=== PATIENT | female | born 1955 | race Caucasian/White ===

== ENCOUNTER → 2018-05-02 11:41 | Outpatient (CLI) | payer MEDICARE, BC, SELFPAY ==
[2018-05-02 11:55] LABS: Eosinophils # 0.1 K/mm3 (0.0-0.4); Eosinophils % 2.4 % (0.1-12.0); Hematocrit 39.7 % (37.0-47.0); Hemoglobin 13.1 g/dL (12.2-16.2); Lymphocytes # 1.1 K/mm3 (0.7-4.5); Lymphocytes % 25.5 % (10-50); Mean Corpuscular Hemoglobin 30.6 pg (27.0-31.2); Mean Corpuscular Volume 92.9 fl (81-99); Mean Platelet Volume 8.4 fl (7.4-10.4); Monocytes # 0.2 K/mm3 (0.1-1.0); Monocytes % 5.6 % (1.7-9.3); Neutrophils # 2.7 K/mm3 (1.8-7.8); Neutrophils % 65.5 % (37.0-80.0); Platelet Count 224 K/mm3 (142-424); Red Blood Count 4.28 M/mm3 (4.20-5.40); Red Cell Distribution Width 13.3 % (11.5-17.5); White Blood Count 4.2 K/mm3 (4.8-10.8)
[2018-05-02 12:38] LABS: Alanine Aminotransferase 28 U/L (12-78); Albumin Level 3.8 gm/dL (3.4-5.0); Albumin/Globulin Ratio 1.2 (1.1-1.8); Alkaline Phosphatase 67 U/L (46-116); Aspartate Amino Transferase 18 U/L (15-37); Bilirubin,Total 1.8 mg/dL (0.2-1.0); Blood Urea Nitrogen 21 mg/dL (7-18); CKMB Relative Index 0.7 U/L (0-4.0); Calcium 8.8 mg/dL (8.5-10.1); Carbon Dioxide 29 mmol/L (21.0-32.0); Chloride 101 mmol/L (98-107); Creatine Kinase 91 U/L (26-192); Creatine Kinase MB 0.6 ng/ml (0.0-3.6); Creatinine,Serum 1.14 mg/dL (0.55-1.02); Estimated Glomerular Filt Rate 48 ml/min (>60); GFR (African American) 58 ML/MIN (>60); Globulin 3.3 gm/dl (1.3-3.2); Glucose 161 mg/dL (74-106); Sodium 140 mmol/L (136-145); Total Protein,Serum 7.1 gm/dL (6.4-8.2); Troponin I < 0.02 ng/ml (0.00-0.06)
== END ==
PROVIDERS: Visit Provider Internal Medicine Adolescent Medicine
DX: R07.9 Chest pain, unspecified (principal); M79.10 Myalgia, unspecified site
CPT/HCPCS: 36415; 80053; 82550; 82553; 83735; 84484; 85025

== ENCOUNTER → 2018-06-16 08:49 | Outpatient (CLI) | payer MEDICARE, BC, SELFPAY ==
--- NOTE | 2018-06-16 08:52 | XR_ITS ---
XR DEXA axial skeleton HISTORY: ITS.REASON: POST MENOAPAUSAL SCREENING ORDERING PHYSICIAN: Evin Burnett MD PATIENT AGE: 63 years COMPARISON: None FINDINGS: The BMD measured at the Right femoral neck is 0.911 g/cm squared with a T score of -0.9. This is considered Normal according to the World Health Organization criteria. Fracture risk is Low. L1 L4 density has a T score 1.2. IMPRESSION: Normal bone density with low fracture risk. Recommend follow-up exam June 2020
--- NOTE | 2018-06-16 08:53 | MM_ITS ---
MM Dig screening mamm BI w/CAD CAD Screening COMPARISON: Digital mammograms with CAD 11/26/2016 and 07/28/2015 INDICATION: There is no personal or family history of breast cancer TECHNIQUE: Standard CC and MLO images were obtained. R2 CAD reviewed. FINDINGS: The breasts are composed primarily of fat with minimal scattered fibroglandular densities in each breast. There is no suspicious lesion in either breast and there are no suspicious microcalcifications. IMPRESSION: Fibrofatty parenchyma with no suspicious lesion seen BI-RADS Category: 1 Negative RECOMMENDED FOLLOW-UP: 1YR - 1 YEAR FOLLOW-UP (A letter has been sent to the patient regarding results of the study.)
== END ==
PROVIDERS: PCP Internal Medicine Adolescent Medicine; Visit Provider Internal Medicine Adolescent Medicine
DX: Z12.31 Encounter for screening mammogram for malignant neoplasm of breast (principal); Z13.820 Encounter for screening for osteoporosis; Z78.0 Asymptomatic menopausal state
CPT/HCPCS: 77067; 77080

== ENCOUNTER → 2018-11-02 09:34 | Outpatient (CLI) | payer MEDICARE, BC, SELFPAY ==
--- NOTE | 2018-11-02 09:38 | XR_ITS ---
XR foot wt bearing LT 3V HISTORY: ITS.REASON: pain ORDERING PHYSICIAN: Marissa Hernández DPM PATIENT AGE: 63 years COMPARISON: None FINDINGS: There are mild osteoarthritic changes at the talonavicular and calcaneocuboid joint. There is mild abduction of the proximal phalanx of the third toe. Normal alignment. No fracture or dislocation. There is a small calcaneal spur. IMPRESSION: Mild osteoarthritic change of the midfoot
--- NOTE | 2018-11-02 09:38 | XR_ITS ---
XR foot wt bearing RT 3V HISTORY: ITS.REASON: pain ORDERING PHYSICIAN: Marissa Hernández DPM PATIENT AGE: 63 years COMPARISON: None FINDINGS: There are mild osteoarthritic changes of the talonavicular joint. There is borderline pes planus. Small calcaneal spur is noted. Minimal osteoarthritic changes are present at the first metatarsal tarsal joint. There are also minimal osteoarthritic changes of the calcaneocuboid joint. 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
== END ==
PROVIDERS: PCP Internal Medicine Adolescent Medicine; Visit Provider Podiatrist
DX: M79.672 Pain in left foot (principal); M79.671 Pain in right foot
CPT/HCPCS: 73630

== ENCOUNTER → 2019-01-04 08:49 | Outpatient (CLI) | payer MEDICARE, BC, SELFPAY ==
--- NOTE | 2019-01-04 08:58 | NM_ITS ---
PROCEDURE: NM BONE 3 PHASE 26.5 millicuries of technetium MDP was injected at the right hand area. CLINICAL INDICATION: left foot pain COMPARISON: FTL3 FOOT-LT-3 VIEWS from 10/05/2015 FINDINGS: Radionuclide angiogram shows possible subtle mild increased blood flow to the left ankle and foot area. Immediate static images show subtle diffuse activity on at the left foot within the soft tissues. This is very mild without focal abnormality. Delayed static images shows some areas of discrete moderate activity in the tarsal areas bilaterally as well as at the 1st MTP joints of both feet, and the left foot shows mild activity at the 3rd MTP joint and the PIP joint of the 2nd digit. IMPRESSION: Above described findings suggest possible mild reactive increased blood flow to left foot perhaps a mild cellulitis however there is no discrete intense focal activity to suggest acute infection or acute fracture. Areas of activity scribe above in both ankles and feet are likely degenerative in nature. Dictated by: John Rivera 01/04/2019 13:04 Electronically signed by John Rivera in [place] 01/04/2019 13:04
[2019-01-04 09:12] LABS: Basophils # 0.1 K/mm3 (0-0.2); Basophils % 1.3 % (0.1-2.0); Eosinophils # 0.1 K/mm3 (0.0-0.4); Eosinophils % 2.9 % (0.1-12.0); Hematocrit 38.4 % (37.0-47.0); Lymphocytes % 25.8 % (10-50); Mean Corpuscular HGB Conc 31.3 g/dL (31.8-35.4); Mean Corpuscular Hemoglobin 29.2 pg (27.0-31.2); Mean Platelet Volume 8.1 fl (7.4-10.4); Monocytes # 0.3 K/mm3 (0.1-1.0); Monocytes % 6.8 % (1.7-9.3); Neutrophils # 2.3 K/mm3 (1.8-7.8); Neutrophils % 63.2 % (37.0-80.0); Platelet Count 211 K/mm3 (142-424); Red Blood Count 4.13 M/mm3 (4.20-5.40); Red Cell Distribution Width 13.5 % (11.5-17.5); White Blood Count 3.7 K/mm3 (4.8-10.8)
--- NOTE | 2019-01-04 10:38 | HMH.ITSHM ---
Current Home Medications as stated by this patient Felicia Seals or insurance claims representative. []ROSUVASTATIN LEVOTHYROXINE FLUCONAZOLE ESTROGENS CARVEDILOL
[2019-01-04 11:12] LABS: Alanine Aminotransferase 24 U/L (12-78); Albumin Level 3.9 gm/dL (3.4-5.0); Albumin/Globulin Ratio 1.4 (1.1-1.8); Alkaline Phosphatase 66 U/L (46-116); Anion Gap 12.1 mEq/L (5-15); Aspartate Amino Transferase 13 U/L (15-37); Bilirubin,Total 1.4 mg/dL (0.2-1.0); Blood Urea Nitrogen 11 mg/dL (7-18); Calcium 8.7 mg/dL (8.5-10.1); Carbon Dioxide 29 mmol/L (21.0-32.0); Chloride 105 mmol/L (98-107); Creatinine,Serum 0.98 mg/dL (0.55-1.02); Estimated Glomerular Filt Rate 57 ml/min (>60); GFR (African American) 69 ML/MIN (>60); Globulin 2.7 gm/dl (1.3-3.2); Glucose 102 mg/dL (74-106); Potassium 4.1 mmoL/L (3.5-5.1); Sodium 142 mmol/L (136-145); Thyroid Stimulating Hormone 4.46 uIU/ml (0.358-3.740); Total Protein,Serum 6.6 gm/dL (6.4-8.2)
[2019-01-05 09:11] LABS: Folate 17.8 ng/mL (>3.0); Vitamin B12 493 pg/mL (232-1245); Vitamin D 25 Hydroxy 24.2 ng/mL (30.0-100.0)
== END ==
PROVIDERS: PCP Internal Medicine Adolescent Medicine; Visit Provider Podiatrist
DX: G90.522 Complex regional pain syndrome I of left lower limb; E03.9 Hypothyroidism, unspecified
CPT/HCPCS: 36415; 78315; 80053; 82607; 82652; 82746; 84443; 85025; A9503

== ENCOUNTER → 2019-06-01 07:02 | Outpatient (CLI) | payer MEDICARE, BC, SELFPAY ==
--- NOTE | 2019-06-01 | CA_ITS ---
APPROVED REPORT Exam: Pharmacologic Technologist: Kelley Garner Ht: 5 ft 6 in Wt: 229 lbs BSA: 2.12 m2 HR: 57 bpm BP: 163/73 mmHg Indications: Chest pain Medical History Medications: Levothyroxine,,,,, Carvedilol,,,,, EstroGEN,,,,, RoSUVASTATIN,,,,, Fluconazole,,,,, Stress Test Details Test: LEXISCAN HR Resting HR: 59 bpm Max Heart Rate (APMHR): 154 bpm Max HR Achieved: 84 bpm Target HR (85% APMHR): 130 bpm % of APMHR: 54 Recovery HR: 66 bpm BP Resting BP: 163.0/73.0 mmHg Max BP: 163.0/73.0 mmHg Recovery BP: 142.0/65.0 mmHg ECG Clinical Exercise duration: 04:02 min Highest Stage Achieved: Stress ECG Conclusion Resting ECG: Sinus bradycardia, first degree AV block, PAC Symptoms: Shortness of air, mild malaise. No chest pain Arrhythmias/Ectopy: Occasional PAC ST-T Changes: No significant changes. Conclusion: Unremarkable Lexiscan stress. Myoview images reported separately. Test Summary REST . . . . . . . Resting REST 03:19 . . 59 . 163/ 73 . . Stage 1 . . . . . . . Myoview Injected Stage 1 01:00 . . 83 . . . . Stage 2 01:00 . . 78 . . . . Stage 3 01:00 . . 78 . 143/ 70 . . Stage 4 01:00 . . 74 . 139/ 66 . . Stage 4 01:02 . . 74 . 139/ 66 . Stop exercise at 04:02 RECOVERY 01:00 . . 78 . . . . RECOVERY 02:00 . . 67 . . . . RECOVERY 03:00 . . 66 . 142/ 64 . . RECOVERY 04:00 . . 68 . 142/ 65 . . RECOVERY 04:19 . . 68 . 142/ 65 . . Electronically signed by : Tramaine Antunez, 06/01/2019 19:51:18
--- NOTE | 2019-06-01 07:06 | NM_ITS ---
APPROVED REPORT Exam: Nuclear Stress Test Indication: Chest pain, SOB, Abnormal EKG, HTN, High cholesterol, Family history Patient Location: Outpatient Stress Tech: Kelley Garner [place] Tech:Janette Du, ARRT, RT (R)(N) Ht: 5 ft 6 in Wt: 229 lbs Bra Size: 38D HR: 57 bpm BP: 163/73 mmHg BSA: 2.12 m2 BMI: 36.9 History: Chest pain, SOB, Abnormal EKG, HTN, High cholesterol, Family history Procedure: Patient received a 0.4 mg of intravenous Lexiscan, resting heart rate 57 bpm, resting blood pressure 163/73 mmHg, with Lexiscan maximum heart rate achived was 83 bpm which is Less than 85 % of the maximum predicted heart rate and blood pressure was 143/70 mmHg. With Lexiscan, patient denied any complaint of chest pain. Electrocardiogram Resting electrocardiogram showed sinus rhythm right ventricular conduction delay, with Lexiscan there is less than 1.[address] segment depression noted from the baseline EKG. The EKG portion of the Lexiscan Myoview is nondiagnostic. Cardiac Stress and Resting SPECT Images: Cardiac Stress and Resting SPECT images were obtained using technetium 99m Myoview 32.1 mCi stress and 10.97 mCi at rest. Gated SPECT with analysis of segmental wall motion and calculation of the ejection fraction also done. Cardiac stress and resting SPECT images show a mild fixed defect anteroapically with normal contracted gated SPECT is likely secondary to soft tissue attenuation, no reversible ischemia seen, computer derived ejection fraction is over 65% with no regional wall motion abnormality, right ventricle is mildly enlarged with normal contractility. Conclusion: 1. The EKG portion of the Lexiscan Myoview is nondiagnostic. 2. No scintigraphic evidence of reversible ischemia seen, a mild fixed defect anteroapical is likely secondary to soft tissue attenuation, computer derived ejection fraction is over 65% with no regional wall motion abnormality, right ventricle is mildly enlarged with normal contractility. 3. Likely normal Lexiscan Myoview study. Electronically signed by : Tramaine Antunez, 06/01/2019 19:54:14
--- NOTE | 2019-06-01 08:53 | HMH.ITSHM ---
Current Home Medications as stated by this patient Felicia Seals or medical collections representative. []ROSUVASTATIN LEVOTHYROXINE FLUCONAZOLE ESTROGENS CARVEDILOL
== END ==
PROVIDERS: PCP Internal Medicine Adolescent Medicine; Visit Provider Internal Medicine Adolescent Medicine
DX: R07.9 Chest pain, unspecified (principal)
CPT/HCPCS: 78452; 93017; A9502; J2785

== ENCOUNTER → 2019-11-10 10:48 | Outpatient (CLI) | payer MEDICARE, BC, SELFPAY | PROVIDERS: Visit Provider Internal Medicine Adolescent Medicine | DX: Z20.828 Contact with and (suspected) exposure to other viral communicable diseases (principal) | CPT/HCPCS: U0003 ==

== ENCOUNTER 2020-06-23 13:09 | Emergency (ER) | payer MEDICARE, BC, SELFPAY ==
[2020-06-23 13:10] VITALS: PULSE 80; RESP 20; TEMP 36.2; O2SAT 99; BMI 37.9
--- NOTE | 2020-06-23 14:06 | HMH.EDUTC ---
[facility] Disposition Clinical Impression: Laceration of finger Qualifiers: Encounter type: initial encounter Finger: index finger Damage to nail status: without damage Foreign body presence: without foreign body Laterality: left Qualified Code(s): S61.211A - Laceration without foreign body of left index finger without damage to nail, initial encounter Disposition: Home, Self-Care Condition on Discharge: Good Instructions: DI for Laceration Repair -- Finger Additional Instructions: Return for suture removal in 7-10 days Keep clean and dry Watch for signs of infection Referrals: Evin Burnett MD [Primary Care Provider] - Time of Disposition: 14:10 Medical Decision Making - [place] Inquiry Pt receiving controlled substance: No Vital Signs: 06/23/20 13:10 Temperature 97.1 F L Temperature Source Oral Pulse Rate [Right Brachial] 80 Respiratory Rate 20 02 Sat by Pulse Oximetry 99 Oxygen Delivery Method Room Air Orders (Tests/Meds): ED MEDICATIONS Discontinued Medications Generic Name Dose Route Start Last Admin Trade Name Freq PRN Reason Stop Dose Admin Tetanus/Reduced Diphtheria/Acell Pertussis 0.5 ml 06/23/20 13:27 06/23/20 13:30 Tet/Diphth/Pert-Adult 0.5ml Syringe IM 06/23/20 13:28 0.5 ml .ONCE ONE Administration [facility] HPI - General Stated complaint: left index finger cut Time Seen by Provider: 06/23/20 14:07 Mode of Arrival: Ambulatory Source of Information: Patient Limitations: No Limitations Description of Symptoms (Recalled from Triage Doc. 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 Sensation and movement intact, but she could not get it to quit bleeding. Onset (ago): hour(s) (1/2) Location: left, upper extremity Relieving factors: none Exacerbating factors: none Treatments prior to arrival: none - Related Data Home Medications Medication Instructions Recorded Confirmed levothyroxine 125 mcg tablet 125 mcg PO DAILY 01/27/18 06/23/20 rosuvastatin 20 mg tablet 20 mg PO DAILY 01/27/18 06/23/20 carvedilol 6.25 mg tablet 6.25 mg PO BID #180 tab 11/02/18 06/23/20 Allergies Allergy/AdvReac Type Severity Reaction Status Date / Time No Known Allergies Allergy Verified 12/28/18 14:57 - Worker's Comp Is this a Worker's Comp case?: No [facility] History - Hepatitis A Screen Drug use history?: No High risk sexual behaviors?: No History of sexually transmitted infection?: No Currently employed?: No Childcare worker?: No Do you have indoor plumbing?: Yes Do you have electricity?: Yes Attestation statement:: This patient has been screened for Hepatitis A risk factors. I have reviewed the patient's past medical history: Yes Medical History: Reports:: Hyperlipidemia Denies:: Anxiety, Depression, Hypertension, Migraine, MRSA Other Medical History: Reports: Hypothyroidism Other Surgeries: Yes: Cholecystectomy, Hysterectomy-Total Amputation: No Fractures: No Comment: 2 on wrist left. toe left 4th. partial left knee replacement - Social History Smoking Status: Never smoker Alcohol Intake: never Alcohol Intake Frequency:: holidays/special occasions only Substance Use Type: denies use Occupational Status: other - Psychiatric History Pschychiatric History:: Denies:: Anxiety, Depression Family Hx:: Cancer, Heart Attack, Diabetes, Coronary Artery Disease, Thyroid Disorder, Stroke, Hypertension, Hyperlipidemia ROS Obtained: Yes All systems reviewed & no additional complaints - Integumentary/Breasts Skin/Breast: Reports as pe
[2020-06-23 14:08] VITALS: BP 00/00; PULSE 80; RESP 20; TEMP 36.2; O2SAT 99
== END 2020-06-23 14:12 | disposition home or self-care (01) ==
PROVIDERS: Emergency Provider Physician Assistant; PCP Internal Medicine Adolescent Medicine
DX: S61.211A Laceration without foreign body of left index finger without damage to nail, initial encounter (principal); W26.0XXA Contact with knife, initial encounter; Y92.019 Unspecified place in single-family (private) house as the place of occurrence of the external cause; E78.5 Hyperlipidemia, unspecified; E03.9 Hypothyroidism, unspecified; Z23 Encounter for immunization
CPT/HCPCS: 12001; G0463; 90471; 90715; 99202

== ENCOUNTER → 2020-10-27 11:47 | Outpatient (CLI) | payer MEDICARE, BC, SELFPAY ==
[2020-10-27 12:27] LABS: Basophils # 0.1 K/mm3 (0-0.2); Basophils % 1.3 % (0.1-2.0); Eosinophils # 0.1 K/mm3 (0.0-0.4); Eosinophils % 2.7 % (0.1-12.0); Hematocrit 40.2 % (37.0-47.0); Hemoglobin 13.5 g/dL (12.2-16.2); Lymphocytes # 1.2 K/mm3 (0.7-4.5); Lymphocytes % 27.2 % (10-50); Mean Corpuscular HGB Conc 33.5 g/dL (31.8-35.4); Mean Corpuscular Volume 89.7 fl (81-99); Mean Platelet Volume 8.2 fl (7.4-10.4); Monocytes # 0.3 K/mm3 (0.1-1.0); Neutrophils # 2.8 K/mm3 (1.8-7.8); Neutrophils % 61.8 % (37.0-80.0); Platelet Count 238 K/mm3 (142-424); Red Blood Count 4.48 M/mm3 (4.20-5.40); Red Cell Distribution Width 13.7 % (11.5-17.5); White Blood Count 4.5 K/mm3 (4.8-10.8)
[2020-10-27 13:50] LABS: Free Thyroxine Index 2.1 ug/dL (5.93-13.13); T4 (Thyroxine) 7.6 ug/dl (5.53-11.0); Triiodothryronine (T3) Uptake 28 % (23.5-40.5)
[2020-10-27 14:04] LABS: Thyroid Stimulating Hormone 8.28 uIU/mL (0.465-4.68)
[2020-10-27 17:01] LABS: Chloride 106 mmol/L (98-107); Sodium 139 mmol/L (136-145)
[2020-10-27 17:02] LABS: Potassium 3.8 mmoL/L (3.5-5.1)
[2020-10-27 17:04] LABS: Alanine Aminotransferase 35 U/L (12-78); Alkaline Phosphatase 83 U/L (38-126); Anion Gap 13.8 mEq/L (5-15); Aspartate Amino Transferase 40 U/L (14-36); Bilirubin,Total 2.3 mg/dl (0.2-1.3); Blood Urea Nitrogen 11 mg/dl (7-17); Carbon Dioxide 23 mmol/L (22.0-30.0); Estimated Glomerular Filt Rate 50 ml/min (>60); GFR (African American) 60 ML/MIN (>60)
[2020-10-27 17:05] LABS: Albumin Level 4.6 g/dl (3.5-5.0); Albumin/Globulin Ratio 1.9 (1.1-1.8); Calcium 8.6 mg/dl (8.4-10.2); Globulin 2.4 g/dL (1.3-3.2); Glucose 86 mg/dl (74-100)
[2020-10-28 16:28] LABS: Tissue Transglutaminase IgA Ab <2 U/mL (0-3); Tissue Transglutaminase IgG Ab 7 U/mL (0-5)
== END ==
PROVIDERS: Visit Provider Internal Medicine Adolescent Medicine
DX: E03.9 Hypothyroidism, unspecified (principal); R19.7 Diarrhea, unspecified
CPT/HCPCS: 36415; 80053; 83516; 84436; 84443; 84479; 85025

== ENCOUNTER → 2020-10-31 08:58 | Outpatient (CLI) | payer MEDICARE, BC, SELFPAY ==
[2020-10-31 09:02] LABS: Adenovirus F 40/41, stool Not Detected (NotDetected); Astrovirus Not Detected (NotDetected); Campylobacter Not Detected (NotDetected); Clostridium Difficile A/B, PCR Not Detected (NotDetected); Cryptosporidium Not Detected (NotDetected); Cyclospora Cayetanesis Not Detected (NotDetected); Entamoeba histolytica Not Detected (NotDetected); Enteroaggregative E coli Not Detected (NotDetected); Enteropathogenic E coli Not Detected (NotDetected); Enterotoxigenic E coli Not Detected (NotDetected); Giardia lamblia Not Detected (NotDetected); Norovirus Not Detected (NotDetected); Plesimonas Shigalloides, PCR Not Detected (NotDetected); Rotavirus A Not Detected (NotDetected); Salmonella, PCR Not Detected (NotDetected); Sapovirus Not Detected (NotDetected); Shiga-like toxin E coli Not Detected (NotDetected); Shigella Enterovasive E coli Not Detected (NotDetected); Vibrio Cholerae Not Detected (NotDetected); Vibrio, PCR Not Detected (NotDetected); Yersinia Entercolitica, PCR Not Detected (NotDetected)
[2020-11-02 17:31] LABS: Calprotectin, Fecal 34 ug/g (0-120)
[2020-11-03 18:03] LABS: Lactoferrin, Fecal, Quant. 2.65 ug/mL(g) (0.00-7.24)
== END ==
PROVIDERS: Visit Provider Internal Medicine Adolescent Medicine
DX: R19.7 Diarrhea, unspecified (principal)
CPT/HCPCS: 83630; 83993; 87506

== ENCOUNTER → 2021-05-08 10:15 | Outpatient (CLI) | payer MEDICARE, BC, SELFPAY ==
--- NOTE | 2021-05-08 10:25 | XR_ITS ---
FINAL REPORT CLINICAL HISTORY: ACUTE PAIN OF RT KNEE no injury FINDINGS: Four views of the right knee reveal no evidence of fracture or dislocation. The bony alignment is normal. There are mild degenerative changes. There is no evidence of joint effusion. No localized soft tissue abnormality is identified. IMPRESSION: Mild degenerative changes. Reviewed, Interpreted and Dictated by Zak Samson III, MD Transcribed by Nahtalia Duarte Authenticated by Zak Samson III, MD on 05/08/2021 01:13:[address] [facility]
--- NOTE | 2021-05-08 13:29 | CA_ITS ---
FINAL REPORT TECHNIQUE: Color Doppler, duplex Doppler and compression sonography of the right lower extremity venous system was performed. CLINICAL HISTORY: .Rt knee injury, Rt calf pain below the knee FINDINGS: There is no evidence of deep venous thrombosis from the level of the groin to the calf. The veins are patent and compressible. IMPRESSION: No evidence of deep venous thrombosis right lower extremity. Reviewed, Interpreted and Dictated by Zak Samson III, MD Transcribed by Nathalia Duarte Authenticated by Zak Samson III, MD on 05/08/2021 02:55:10 PM [facility]
== END ==
PROVIDERS: PCP Internal Medicine Adolescent Medicine; Visit Provider Internal Medicine Adolescent Medicine
DX: M25.561 Pain in right knee (principal); M79.661 Pain in right lower leg
CPT/HCPCS: 73562; 93971

== ENCOUNTER → 2021-05-29 14:19 | Outpatient (CLI) | payer MEDICARE, BC, SELFPAY ==
[2021-05-29 15:52] LABS: Blood Urea Nitrogen 22 mg/dl (7-17); Estimated Glomerular Filt Rate 49 ml/min (>60); GFR (African American) 60 ML/MIN (>60)
== END ==
PROVIDERS: PCP Internal Medicine Adolescent Medicine; Visit Provider Internal Medicine Adolescent Medicine
DX: M25.561 Pain in right knee (principal)
CPT/HCPCS: 36415; 82565; 84520

== ENCOUNTER → 2021-05-30 08:26 | Outpatient (CLI) | payer MEDICARE, BC, SELFPAY ==
--- NOTE | 2021-05-30 08:27 | MR_ITS ---
FINAL REPORT CLINICAL HISTORY: ACUTE PAIN IN RIGHT KNEE, RIGHT LATERAL KNEE PAIN AND SWELLING X4 WEEKS 22ML PROHANCE INJECTED PRIOR XRAY 05-08-21 FINDINGS: Multiplanar MR imaging of the right knee was obtained with and without contrast. There is a complex tear involving the anterior horn of the lateral meniscus. There is a linear tear of the posterior horn of the medial meniscus. The anterior and posterior cruciate ligaments are intact. The medial and lateral collateral ligaments are intact. The medial and lateral retinacula are intact. There is a moderate joint effusion. Moderate popliteal cyst is seen measuring 6.8 cm in craniocaudal dimension. On the postinfusion images, there is extensive and rather intense enhancement of the synovium throughout the knee including within the popliteal cyst consistent with acute synovitis. IMPRESSION: Medial and lateral meniscal tears as above. Findings consistent with synovitis. Reviewed, Interpreted and Dictated by Duke Anderson MD Transcribed by Paola Ha Authenticated by Duke Anderson MD on 05/30/2021 12:42:33 PM [facility]
== END ==
PROVIDERS: PCP Internal Medicine Adolescent Medicine; Visit Provider Internal Medicine Adolescent Medicine
DX: M25.561 Pain in right knee (principal)
CPT/HCPCS: 73723; A9576

== ENCOUNTER → 2021-06-05 10:36 | Outpatient (CLI) | payer MEDICARE, BC, SELFPAY ==
[2021-06-06 09:13] LABS: HSV 1 IgG, Type Spec <0.91 index (0.00-0.90); HSV 2 IgG, Type Spec <0.91 index (0.00-0.90)
== END ==
PROVIDERS: Visit Provider Nurse Practitioner Obstetrics & Gynecology
DX: N76.2 Acute vulvitis (principal)
CPT/HCPCS: 36415; 86695; 86790

== ENCOUNTER → 2022-05-14 07:39 | Outpatient (CLI) | payer MEDICARE, BC, SELFPAY ==
--- NOTE | 2022-05-14 07:43 | MM_ITS ---
PROCEDURE INFORMATION: Exam: MG Bilateral Screening 3D Mammography Exam date and time: 05/14/2022 7:51 AM Age: 67 years old Clinical indication: Screening. No family history of breast cancer. TECHNIQUE: Imaging protocol: Bilateral Screening tomosynthesis and 2D mammography including computer-aided detection (CAD) when performed. COMPARISON: 1. MG SCBI MM Dig screening mamm BI w/CAD 06/16/2018 9:05 AM 2. MG DMSB DIG MAMM-SCREEN ERIKA W/CAD 11/26/2016 9:12 AM 3. MG DMDXUAVR DIG MAMM-DX UNI ADD VIEWS-RT 08/03/2015 10:56 AM 4. MG DMSB DIG MAMM-SCREEN EIRKA 07/28/2015 8:18 AM MG DMSB DIG MAMM-SCREEN ERIKA 07/28/2015 8:18 AM FINDINGS: MAMMOGRAPHY: Breast composition: The breasts are almost entirely fatty. Mass: No suspicious mass. Architectural distortion: None. Calcifications: No suspicious calcifications. Asymmetric density: None. Skin thickening: None. Axillary adenopathy: None. IMPRESSION: No mammographic evidence of malignancy. Annual screening is recommended unless otherwise clinically indicated. ASSESSMENT: BI-RADS Category 1: Negative
--- NOTE | 2022-05-14 07:43 | US_ITS ---
FINAL REPORT CLINICAL HISTORY: ABN LIVER FUNCTION STUDY FINDINGS: RIGHT UPPER QUADRANT ULTRASOUND Sonographic images of the right upper quadrant were obtained. The pancreas is partially obscured. There is fatty infiltration of the liver. The gallbladder is absent. The common duct is normal. Limited images of the right kidney are normal. IMPRESSION: Fatty liver. Reviewed, Interpreted and Dictated by Duke Anderson MD Transcribed by Paola Ha Authenticated and [facility]
== END ==
PROVIDERS: PCP Internal Medicine Adolescent Medicine; Visit Provider Nurse Practitioner Family
DX: Z12.31 Encounter for screening mammogram for malignant neoplasm of breast (principal); R79.89 Other specified abnormal findings of blood chemistry; R94.5 Abnormal results of liver function studies
CPT/HCPCS: 76705; 77063; 77067

== ENCOUNTER 2023-08-25 10:25 | Outpatient (CLI) | payer MEDICARE, BC, SELFPAY ==
--- NOTE | 2023-08-25 10:30 | XR_ITS ---
FINAL REPORT CLINICAL HISTORY: LT FOOT PAIN, lateral foot pain COMPARISON: None FINDINGS: LEFT FOOT Three views of the left foot demonstrate no acute fracture or dislocation. The visualized joint spaces are normally aligned. A small plantar spur is noted. The soft tissues are unremarkable. IMPRESSION: No acute bony abnormality. Reviewed, Interpreted and Dictated by Duke Anderson MD Transcribed by Mariza Quezada Authenticated and [facility]
== END 2023-08-25 23:59 | disposition home or self-care (01) ==
LOC: RAD 10:26
PROVIDERS: PCP Nurse Practitioner Family; Visit Provider Nurse Practitioner Family
DX: M79.672 Pain in left foot (principal)
CPT/HCPCS: 73630

== ENCOUNTER 2023-12-09 06:58 | Outpatient (CLI) | payer MEDICARE, BC, SELFPAY ==
--- NOTE | 2023-12-09 | CA_ITS ---
APPROVED REPORT Exam: Pharmacologic Technologist: Marisela Palomo, Ht: 5 ft 6 in Wt: 230 lbs BSA: 2.12 m2 HR: 67 bpm BP: 172/76 mmHg Rhythm: sr Medical History Medications: levothyroxine, rosuvastatin, carvedilol, biotin, vagifum, benzonatate Allergies: No known drug allergies Stress Test Details Test: LEXISCAN HR Resting HR: 72 bpm Max Heart Rate (APMHR): 150 bpm Max HR Achieved: 90 bpm Target HR (85% APMHR): 128 bpm % of APMHR: 60 Recovery HR: 73 bpm BP Resting BP: 172/76 mmHg Max BP: 183/82 mmHg Recovery BP: 155.0/81.0 mmHg ECG Resting ECG: Normal sinus rhythm Stress ECG: No ST changes Arrhythmia: None Clinical Exercise duration: 04:01 min Highest Stage Achieved: Stress ECG Conclusion Pt had light headedness and a headache No significant ST changes Conclusion: EKG portion unremarkable due to lexiscan infusion Myoview images reported separately. Test Summary REST 01:31 . . 72 . 172/ 76 . . Stage 1 . . . . . . . Myoview Injected Stage 1 01:00 . . 87 . . . . Stage 2 01:00 . . 84 . 170/ 90 . . Stage 3 01:00 . . 79 . 183/ 82 . . Stage 4 01:00 . . 78 . 165/ 78 . . Stage 4 01:01 . . 78 . 165/ 78 . Stop exercise at 04:01 RECOVERY 01:00 . . 79 . . . . RECOVERY 02:00 . . 74 . 162/ 70 . . RECOVERY 02:59 . . 73 . 155/ 81 . . Electronically signed by : Katherine Oliver MD 12/09/2023 14:39:01
--- NOTE | 2023-12-09 07:03 | NM_ITS ---
APPROVED REPORT Exam: Nuclear Stress Test Indication: Chest pain, SOB, Fatigue, HTN, High cholesterol, Family history Patient Location: Outpatient Stress Tech: Marisela Palomo [place] Tech:Janette Du, ARRT, RT (R)(N) Ht: 5 ft 6 in Wt: 230 lbs Bra Size: 40D HR: 72 bpm BP: 172/76 mmHg BSA: 2.12 m2 TID: 0.95 BMI: 37.1 History: Chest pain, SOB, Fatigue, HTN, High cholesterol, Family history Procedure: Patient received 0.4 mg of intravenous Lexiscan, resting heart rate 72 bpm, resting blood pressure 172/76 mmHg, with Lexiscan maximum heart rate achieved was 90 bpm which is % of the maximum predicted heart rate and blood pressure was 183/82 mmHg. With Lexiscan, patient denied any complaint of chest pain. Cardiac Stress and Resting SPECT Images: Cardiac Stress and Resting SPECT images were obtained using technetium 99m Myoview 31.3 mCi stress and 10.94 mCi at rest. The patient is unable to lie on her abdomen. Therefore, prone stress imaging could not be performed. This may affect the diagnostic interpretation of the study findings. Resting and stress imaging in supine positions demonstrate no evidence of fixed or reversible perfusion defects. Gated imaging demonstrates normal global and regional LV systolic function. LVEF is calculated at 65%. Conclusion: No evidence of fixed or reversible perfusion defects. Gated imaging demonstrates normal global and regional LV systolic function. LVEF is calculated at 65%. Electronically signed by : Katherine Oliver MD 12/09/2023 14:41:02
[2023-12-09] MEDS: ISOTOPE MYOVIEW (PER STUDY) 1 DOSE IV (09:16)
[2023-12-09] MEDS: REGADENOSON 0.4MG/5ML SYRINGE 0.4 MG IV (09:16)
[2023-12-09] MEDS: SODIUM CHLORIDE 0.9% 10ML SYR (RAD ONLY) 10 ML IV ×2 (09:16)
== END 2023-12-09 23:59 | disposition home or self-care (01) ==
LOC: RAD 06:58
PROVIDERS: PCP Nurse Practitioner Family; Visit Provider Nurse Practitioner Family
DX: R07.9 Chest pain, unspecified (principal)
CPT/HCPCS: 78452; 93017; 93018; A9502; J2785

== ENCOUNTER 2023-12-23 14:14 | Outpatient (CLI) | payer MEDICARE, BC, SELFPAY ==
--- NOTE | 2023-12-23 | CA_ITS ---
APPROVED REPORT EXAM: Comprehensive 2D, Doppler, and color-flow Echocardiogram Scale Technician: Junie Spears RT(R) Ht: 5 ft 6 in Wt: 231lbs BSA: 2.13 BP: 132/86 mmHg Indications: CP, HTN, palpitations, JEFFERSON, hyperlipidemia, family history of HD 2D Dimensions Left Atrium 4.35 cm F: 2.7 - 3.8 LVEF (Lee's) 63.60 % F: 54 - 74 LVOT 1.97 cm (M/F) 1.5-2.5 LV Volume 89.00 mL F: 46 - 106 LV Volume Index 41.8 mL/m2 F: 29 - 61 LA Volume 38.20 mL LA Volume Index 17.93 mL/m2 (M/F) 16-34 EF AP4 68.10 % EF AP2 63.1 % EF BP 63.6 % GL Strain -20.6 % M-Mode Dimensions RVDd 2.26 cm (0.9-2.6) LVDd 5.42 cm (3.5-5.7) Ao Diam 3.09 cm (2.0-3.7) LVDs 4.00 cm (3.5-5.7) IVSd 1.13 cm (0.6-1.1) PWd 0.98 cm (0.6-1.1) EF (Teich) 50.90% FS 26.20% EDV (Teich) 142.50 mL ESV (Teich) 70.00 mL LV Diastology E Decel Time 100 (160-240 msec) E/A Ratio 0.8 MED E' 8.4 (>= 7 cm/sec) E'/MED E' Ratio 10.07 (<= 14) LAT E' 6.9 (>= 10 cm/sec) E/LAT E' Ratio 12.26 (<= 14) Aortic Valve AI PHT 578.00 ms Mitral Valve MV E Max Sam. 85.0 (40-130 cm/s) MV A Velocity 112.0 (40-130 cm/s) E/A Ratio 0.75 MV Decel. Time 100 (160-240 ms) Left Ventricle The left ventricle is normal size. The left ventricular systolic function is normal. The left ventricular ejection fraction is within the normal range. There is increased LV wall thickness. There is normal LV segmental wall motion. The left ventricular diastolic function is normal. LVEF is 55%. Right Ventricle The right ventricle is normal size. The right ventricular systolic function is normal. Atria The left atrium size is normal. The right atrium size is normal. There is no Doppler evidence of interatrial shunt. Aortic Valve The aortic valve is mildly thickened. There is no aortic valvular stenosis. Mild aortic regurgitation. Mitral Valve The mitral valve is mildly thickened. No evidence of mitral valve stenosis. Trace mitral regurgitation. Tricuspid Valve The tricuspid valve leaflets are thin and pliable. Mild tricuspid regurgitation. RVSP is normal. Pulmonic Valve The pulmonary valve is normal in structure. Trace pulmonic regurgitation. Great Vessels The aortic root is normal in size. The ascending aorta is normal in size. IVC is normal in size and collapses >50% with inspiration. Pericardium There is no pericardial effusion. Other Information Study Quality: Fair Conclusion Normal biventricular systolic function. Mild AI, mild TR. Electronically signed by : Katherine Oliver MD 12/27/2023 00:00:16
== END 2023-12-23 23:59 | disposition home or self-care (01) ==
LOC: RT 14:16
PROVIDERS: PCP Nurse Practitioner Family; Visit Provider Nurse Practitioner Family
DX: I35.1 Nonrheumatic aortic (valve) insufficiency (principal); I07.1 Rheumatic tricuspid insufficiency; R07.9 Chest pain, unspecified; I10 Essential (primary) hypertension
CPT/HCPCS: 93306

== ENCOUNTER 2023-12-31 21:15 | Emergency (ER) | payer MEDICARE, BC, SELFPAY ==
[2023-12-31 21:17] VITALS: BP 168/86; PULSE 82; RESP 20; TEMP 36.7; O2SAT 99; BMI 37.3
--- NOTE | 2023-12-31 21:31 | XR_ITS ---
PROCEDURE INFORMATION: Exam: XR Left Foot Exam date and time: 12/31/2023 9:35 PM Age: 68 years old Clinical indication: Pain; Foot; Left; Additional info: Fall, lateral mal/talus/base of 5th tenderness TECHNIQUE: Imaging protocol: Radiologic exam of the left foot. Views: 3 or more views. Total images: 3 COMPARISON: CR XR FOOT LT MIN 3V 08/25/2023 10:32 AM FINDINGS: Bones/joints: Osteopenia. Acute fracture tip the lateral malleolus. No additional fracture. No joint dislocation. Mild degenerative changes of the tarsal articulations. Small enthesophyte dorsal talonavicular joint. Prominent plantar calcaneal enthesophyte. No concerning bone lesions. Mild degenerative change 1st MTP joint. Tibiotalar joint effusion Soft tissues: Soft tissue swelling hindfoot and ankle. IMPRESSION: 1. Negative left foot. 2. Acute fracture tip of the lateral malleolus. 3. Tibiotalar joint effusion 4. Soft tissue swelling.
--- NOTE | 2023-12-31 21:31 | XR_ITS ---
PROCEDURE INFORMATION: Exam: XR Left Ankle Exam date and time: 12/31/2023 9:35 PM Age: 68 years old Clinical indication: Pain; Ankle; Left; Additional info: Fall, lateral mal/talus/base of 5th tenderness TECHNIQUE: Imaging protocol: Radiologic exam of the left ankle. Views: 3 or more views. Total images: 3 COMPARISON: CR XR FOOT LT MIN 3V 12/31/2023 9:35 PM FINDINGS: Bones/joints: Mild osteopenia. Fracture tip of the lateral malleolus. No joint dislocation. Ankle mortise is maintained. No significant degenerative arthropathy. Tibiotalar joint effusion. Prominent plantar calcaneal enthesophyte. Degenerative changes at the tarsal articulations. Spur corticated ossicle dorsal talonavicular joint. Soft tissues: Soft tissue swelling and edema. IMPRESSION: 1. Acute fracture tip of the lateral malleolus. 2. Tibiotalar joint effusion 3. Soft tissue swelling and edema.
[2023-12-31] MEDS: IBUPROFEN 600 MG TABLET PO (21:47)
[2023-12-31] MEDS: ACETAMINOPHEN 500MG TAB 1000 MG PO (21:47)
[2023-12-31 21:49] VITALS: BMI 37.3
--- NOTE | 2023-12-31 21:53 | ED_ITS ---
Discharge Plan Disposition Patient Disposition: Home, Self-Care Prescriptions Prescriptions: New oxycodone 5 mg tablet 5 mg PO Q8H PRN (Reason: pain) Qty: 12 0RF No Action levothyroxine 150 mcg tablet 150 mcg PO biotin 1,000 mcg tablet,chewable 1,000 mcg PO DAILY carvedilol 25 mg tablet 25 mg PO BID Rx Instructions: must administer with a meal/food estradiol [Vagifem] 10 mcg tablet 10 mcg vaginal .every other day Qty: 30 10RF triamcinolone acetonide 0.1 % ointment 1 applic topical DAILY Qty: 80 6RF rosuvastatin [Crestor] 20 mg tablet 20 mg PO DAILY fluconazole 150 mg tablet 150 mg PO WEEKLY Qty: 4 11RF Referrals Follow up/Referrals: Roderick Coleman DO [Staff Physician] - See instructions Evin Burnett MD [Primary Care Provider] - See instructions Activity Restrictions/Add. Instructions Additional Instructions/Restrictions: Please wear boot, okay to weight-bear as tolerated. Follow-up with your PCP and Dr. Coleman with orthopedics. Please take Tylenol, ibuprofen and oxycodone as needed for pain. Clinical Impressions Clinical Impression: Acute foot pain Fracture of distal end of left tibia Qualifiers: Encounter type: initial encounter Fracture type: closed Fracture morphology: unspecified fracture morphology Qualified Code(s): S82.302A - Unspecified fracture of lower end of left tibia, initial encounter for closed fracture Print Language Print Language: Urdu Discharge ED Provider: Alvin Talamantes General Adult HPI <Girma Hunt MD - Last Filed: 12/31/23 22:53> General Chief complaint: Extremity Injury, Lower Stated complaint: AO [id number] left foot pain Time Seen by Provider: 12/31/23 21:23 History of Present Illness HPI narrative: Please note that above description of symptoms, in this electronic medical record under categorization of recalled from ER triage doctor by RN are reflective of an initial nursing assessment, however, is not reflective of my full history and physical exam that was personally taken and clarified. Consequentially, this preceding description of symptoms, which may include the patient's categorized chief complaint in the EMR, do not reflect my personal clinical impression, and the ultimate description of history of present illness and patient stated complaints should be deferred to this section of the note. Unless stated otherwise or congruent with this section of the note, additional signs, symptoms, or incongruence should be interpreted as inaccurate with my clinical impression. Related Data Home Medications ?Medication ?Instructions ?Recorded ?Confirmed rosuvastatin 20 mg tablet (Crestor) 20 mg PO DAILY Cholesterol 01/27/18 05/19/23 biotin 1,000 mcg chewable tablet 1,000 mcg PO DAILY 05/29/21 05/19/23 levothyroxine 150 mcg tablet 150 mcg PO 05/29/21 05/19/23 carvedilol 25 mg tablet 25 mg PO BID 06/18/21 05/19/23 Previous Rx's ?Medication ?Instructions ?Recorded estradiol 10 mcg vaginal tablet 10 mcg vaginal .every other day 05/19/23 (Vagifem) #30 tabs triamcinolone acetonide 0.1 % 1 applic topical DAILY #80 grams 05/19/23 topical ointment fluconazole 150 mg tablet 150 mg PO WEEKLY #4 tabs 06/20/23 oxycodone 5 mg tablet 5 mg PO Q8H PRN pain #12 tabs 01/01/24 Allergies Allergy/AdvReac Type Severity Reaction Status Date / Time No Known Allergies Allergy Verified 05/19/23 10:36 PFS <Girma Hunt MD - Last Filed: 12/31/23 22:53> COUNT INCLUDES THE [facility] Disclaimer: The information contained in this section may have been updated after the patient was seen, as this information can be updated by other users. Medical History (Updated 01/01/24 @ 00:20 by Alvin Talamantes MD) High blood pressure High cholesterol Yeast infection Vaginal atrophy Surgical History (Updated 05/19/23 @ 10:38 by AJ Martin) H/O vaginal hysterectomy Family History Other No significant family history Social History Smoking Status: Never smoker alcohol intake: never substance use type: denies use current occupational status: other Travel in the last 8 weeks: None <Girma Hunt MD - Last Filed: 12/31/23 22:53> ROS Obtained: Yes All systems reviewed & no additional complaints except as documented Physical Exam <Girma Hunt MD - Last Filed: 12/31/23 22:53> General General appearance: alert Head Head exam: atraumatic and normocephalic Eye Eye exam: Present normal appearance, PERRL and EOMI Neck Neck exam: Present normal inspection, full ROM and trachea midline Respiratory Respiratory exam: Absent respiratory distress, wheezes, stridor, accessory muscle use or prolonged expiratory phase Cardiovascular Cardiovascular exam: Present other (Pulses equal symmetric in upper and lower extremities) Abdominal Exam Abdominal exam: Present soft; Absent distention, tenderness or pulsatile mass Extremities Exam Extremities exam: Present other (Per MDM) Neurological Exam Neurological exam: Present alert, oriented X3 and CN II-XII intact; Absent motor sensory deficit Skin Skin exam: Present warm and dry; Absent diaphoresis or erythema Medical Decision Making <Girma Hunt MD - Last Filed: 12/31/23 22:53> Medical Records Medical records reviewed: Yes I reviewed the patient's medical records. Screening: Per USPSTF and CDC recommendations, given the prevalence of disease in our region, it is our hospital?s policy to screen for HIV and viral Hepatitis for all patients aged 18 and over and those with ongoing risk factors. [place] Inquiry Pt receiving controlled substance: No [place] was queried for this patient: No Vital Signs: 12/31/23 21:17 01/01/24 00:25 Temperature 98.1 F 98.1 F Temperature Source Oral Oral Pulse Rate 66 Pulse Rate [Right Radial] 82 Respiratory Rate 20 16 Blood Pressure 166/79 H Blood Pressure [Right Arm] 168/86 H Blood Pressure Mean [Right Arm] 113 Blood Pressure Position Supine 02 Sat by Pulse Oximetry 99 Oxygen Delivery Method Room Air Room Air Orders (Tests/Meds): ED MEDICATIONS Discontinued Medications Generic Name Dose Route Start Last Admin Trade Name Freq PRN Reason Stop Dose Admin Acetaminophen 1,000 mg 12/31/23 21:33 12/31/23 21:47 Acetaminophen 500mg Tab PO 12/31/23 21:34 1,000 mg ONCE ONE Administration Ibuprofen 600 mg 12/31/23 21:33 12/31/23 21:47 Ibuprofen 600 Mg Tablet PO 12/31/23 21:34 600 mg ONCE ONE Administration Oxycodone HCl 5 mg 12/31/23 23:41 12/31/23 23:43 Oxycodone 5mg Immediate Release Tablet PO 12/31/23 23:42 5 mg ONCE ONE Administration ORDERS Category Date Time Status CT foot LT wo con Stat Cat Scan 12/31/23 23:23 Completed Ankle XR - Left minimum 3 Views [XR ankle LT min 3V] Exams 12/31/23 21:31 Completed Stat Foot XR left minimum 3 views [XR foot LT min 3V] Stat Exams 12/31/23 21:31 Completed Medical Decision Narrative: 68-year-old female no relevant medical history presenting with left foot and ankle injury. She was playing football with her grandkids just prior to arrival. Tripped, felt a pop in the top of her left foot, fell. Was able to ambulate on it, but with significant pain. Went to sleep in the armchair, had ice on it, woke up and had even more pain and swelling in it, came for further evaluation. Has not taken any meds for it. History obtained with patient. On arrival, patient very well-appearing, but she does have swelling and tenderness about left lateral malleolus, talus, base of fifth metatarsal. Neurovascularly intact, range of motion of digits intact, ankle range of motion intact, but significantly painful. Differential occludes fracture, sprain, strain, neurovascular injury, among others. Patient given Tylenol Motrin orally. Imaging of ankle and foot were ordered, on independent interpretation demonstrated what appears to be an avulsion fracture of the top of the talus. Prior to radiology read and disposition, care handed off to oncoming physician. Range Rider disclaimer Much of this encounter note is an electronic airplane gas tank liner assembler spoken language to printed text. Electronic airplane gas tank liner assembler of the spoken language may permit errors. Although I have reviewed the note, some errors may still exist. <Alvin Talamantes MD - Last Filed: 01/01/24 00:40> Vital Signs: 12/31/23 21:17 01/01/24 00:25 Temperature 98.1 F 98.1 F Temperature Source Oral Oral Pulse Rate 66 Pulse Rate [Right Radial] 82 Respiratory Rate 20 16 Blood Pressure 166/79 H Blood Pressure [Right Arm] 168/86 H Blood Pressure Mean [Right Arm] 113 Blood Pressure Position Supine 02 Sat by Pulse Oximetry 99 Oxygen Delivery Method Room Air Room Air Orders (Tests/Meds): ED MEDICATIONS Discontinued Medications Generic Name Dose Route Start Last Admin Trade Name Freq PRN Reason Stop Dose Admin Acetaminophen 1,000 mg 12/31/23 21:33 12/31/23 21:47 Acetaminophen 500mg Tab PO 12/31/23 21:34 1,000 mg ONCE ONE Administration Ibuprofen 600 mg 12/31/23 21:33 12/31/23 21:47 Ibuprofen 600 Mg Tablet PO 12/31/23 21:34 600 mg ONCE ONE Administration Oxycodone HCl 5 mg 12/31/23 23:41 12/31/23 23:43 Oxycodone 5mg Immediate Release Tablet PO 12/31/23 23:42 5 mg ONCE ONE Administration ORDERS Category Date Time Status CT foot LT wo con Stat Cat Scan 12/31/23 23:23 Completed Ankle XR - Left minimum 3 Views [XR ankle LT min 3V] Exams 12/31/23 21:31 Completed Stat Foot XR left minimum 3 views [XR foot LT min 3V] Stat Exams 12/31/23 21:31 Completed Medical Decision Narrative: 68-year-old female no relevant medical history presenting with left foot and a nkle injury. She was playing football with her grandkids just prior to arrival. Tripped, felt a pop in the top of her left foot, fell. Was able to ambulate on it, but with significant pain. Went to sleep in the armchair, had ice on it, woke up and had even more pain and swelling in it, came for further evaluation. Has not taken any meds for it. History obtained with patient. On arrival, pat ient very well-appearing, but she does have swelling and tenderness about left lateral malleolus, talus, base of fifth metatarsal. Neurovascularly intact, range of motion of digits intact, ankle range of motion intact, but significantly painful. Differential occludes fracture, sprain, strain, neurovascular injury, among others. Patient given Tylenol Motrin orally. Imaging of ankle and foot were ordered, on independent interpretation demonstrated what appears to be an avulsion fracture of the tip of the distal tibia prior to radiology read and disposition, care handed off to oncoming physician. Range Rider disclaimer Much of this encounter note is an electronic airplane gas tank liner assembler spoken language to printed text. Electronic airplane gas tank liner assembler of the spoken language may permit errors. Although I have reviewed the note, some errors may still exist. [place]: I assumed care of the patient at the time of handoff from the prior provider. On reassessment patient reports continued pain in her foot. She was given oxycodone with some improvement in pain. Radiographs were interpreted and show no acute fracture of the foot, does show a avulsion fracture of the distal tibia. Samson A. On reassessment patient was still unable to bear weight and having pain in the foot. Given concern for occult fracture of the foot, CT of the foot was obtained. This was significant for swelling but no acute fracture or dislocation of the foot. The tip fracture of the lateral malleolus is well- corticated and may be old. These findings were communicated with patient. She was placed in a walking boot and given crutches and encouraged to ambulate as tolerated and follow-up with orthopedic surgery. Return precautions given. She was discharged prescription for oxycodone for severe pain in the setting of fracture. Critical Care <Girma Hunt MD - Last Filed: 12/31/23 22:53> Critical Care Time Critical Care Time: No
--- NOTE | 2023-12-31 22:52 | PC.NURSE ---
Updated patient and spouse on current wait time for xray per radiology of 90-100 minutes
--- NOTE | 2023-12-31 23:23 | CT_ITS ---
PROCEDURE INFORMATION: Exam: CT Left Lower Extremity, Foot Exam date and time: 12/31/2023 11:38 PM Age: 68 years old Clinical indication: Pain; Foot; Left; Additional info: Left foot pain, negative x ray TECHNIQUE: Imaging protocol: CT of the left lower extremity without contrast was performed. Exam focused on the foot. Total images: 1294 Radiation optimization: All CT scans at this facility use at least one of these dose optimization techniques: automated exposure control; mA and/or kV adjustment per patient size (includes targeted exams where dose is matched to clinical indication); or iterative reconstruction. COMPARISON: CR XR FOOT LT MIN 3V 12/31/2023 9:35 PM FINDINGS: Bones/joints: Osteopenia. No acute fracture or joint dislocation. Fracture of the tip the lateral malleolus shows corticated margins compatible with remote injury. Ankle mortise is maintained. Small tibiotalar joint effusion. Calcaneal enthesophytes at the insertion of the Achilles tendon and plantar fascia. Degenerative changes throughout the tarsal articulations and tarsometatarsal joint spaces. Enthesophyte dorsal surface talonavicular joint. No concerning bone lesions. Soft tissues: Mild soft tissue swelling hindfoot. IMPRESSION: 1. No acute osseous abnormality of the foot or ankle. 2. Fracture at the tip the lateral malleolus shows corticated margins compatible with remote injury. 3. Tibiotalar joint effusion. 4. Osteopenia and degenerative changes.
[2023-12-31] MEDS: OXYCODONE 5MG IMMEDIATE RELEASE TABLET 5 MG PO (23:43)
[2024-01-01 00:25] VITALS: BP 166/79; PULSE 66; RESP 16; TEMP 36.7; O2SAT 99
== END 2024-01-01 00:33 | disposition home or self-care (01) ==
PROVIDERS: Emergency Provider Emergency Medicine; PCP Internal Medicine Adolescent Medicine
DX: S82.302A Unspecified fracture of lower end of left tibia, initial encounter for closed fracture (principal); M79.672 Pain in left foot; W01.10XA Fall on same level from slipping, tripping and stumbling with subsequent striking against unspecified object, initial encounter
CPT/HCPCS: 73610; 73630; 73700; 99284

== ENCOUNTER 2024-01-08 10:18 | Outpatient (CLI) | payer MEDICARE, BC, SELFPAY ==
--- NOTE | 2024-01-08 10:23 | XR_ITS ---
FINAL REPORT CLINICAL HISTORY: left ankle fx COMPARISON: 12/31/2023 FINDINGS: LEFT ANKLE Three views demonstrate no acute fracture or dislocation. The previously noted fracture of the tip of the lateral malleolus is not well seen on the current exam. The visualized joint spaces are normally aligned. The ankle mortise is intact. There is a moderate plantar spur. Soft tissue edema seen about the ankle. IMPRESSION: Soft tissue edema. Previously noted fracture not well seen on this exam. Reviewed, Interpreted and Dictated by Duke Anderson MD Transcribed by Mariza Quezada Authenticated and [facility]
== END 2024-01-08 23:59 | disposition home or self-care (01) ==
LOC: RAD 10:21
PROVIDERS: PCP Nurse Practitioner Family; Visit Provider Physician Assistant
DX: S82.832A Other fracture of upper and lower end of left fibula, initial encounter for closed fracture (principal)
CPT/HCPCS: 73610

== ENCOUNTER 2024-01-22 13:47 | Outpatient (RCR) | payer MEDICARE, BC, SELFPAY | END 2024-01-22 23:59 | disposition home or self-care (01) | LOC: PT 13:47 | PROVIDERS: Visit Provider Physician Assistant | DX: M25.572 Pain in left ankle and joints of left foot (principal); S82.832A Other fracture of upper and lower end of left fibula, initial encounter for closed fracture | CPT/HCPCS: 97760 ==

== ENCOUNTER 2024-02-19 09:52 | Outpatient (CLI) | payer MEDICARE, BC, SELFPAY ==
--- NOTE | 2024-02-19 09:57 | XR_ITS ---
FINAL REPORT CLINICAL HISTORY: .ANKLE PAIN COMPARISON: 01/08/2024 FINDINGS: LEFT ANKLE: Three views of the left ankle were obtained. There is no acute fracture or dislocation. Mild degenerative changes are noted. The mortise are intact. A plantar calcaneal spur is identified. There is no soft tissue abnormality. IMPRESSION: Degenerative changes without acute bony abnormality. Reviewed, Interpreted and Dictated by Zak Samson III, MD Transcribed by Ailyn Sanchez Authenticated and [facility]
--- NOTE | 2024-02-19 09:57 | XR_ITS ---
FINAL REPORT CLINICAL HISTORY: RIGHT KNEE PAIN COMPARISON: 05/08/2021 FINDINGS: Three views of the right knee reveal no evidence of fracture or dislocation. The bony alignment is normal. There are mild degenerative changes. There is no evidence of joint effusion. No localized soft tissue abnormality is identified. IMPRESSION: Degenerative changes without acute abnormality identified. Reviewed, Interpreted and Dictated by Zak Samson III, MD Transcribed by Ailyn Sanchez Authenticated and [facility]
== END 2024-02-19 23:59 | disposition home or self-care (01) ==
LOC: RAD 09:55
PROVIDERS: PCP Internal Medicine Adolescent Medicine; Visit Provider Physician Assistant
DX: S82.832A Other fracture of upper and lower end of left fibula, initial encounter for closed fracture (principal); M25.561 Pain in right knee
CPT/HCPCS: 73562; 73610

== ENCOUNTER 2024-04-05 09:00 | Outpatient (RCR) | payer MEDICARE, BC, SELFPAY | END 2024-04-05 23:59 | disposition home or self-care (01) | LOC: PT 09:00 | PROVIDERS: Visit Provider Orthopaedic Surgery | DX: M25.561 Pain in right knee (principal); G89.29 Other chronic pain | CPT/HCPCS: 97014; 97035; 97110; 97163; 97530; G0283 ==

== ENCOUNTER 2024-08-19 08:55 | Outpatient (CLI) | payer MEDICARE, BC, SELFPAY ==
[2024-08-19 09:36] LABS: Basophils % 0.8 % (0.1-2.0); Eosinophils # 0.2 Kmm3 (0.0-0.4); Eosinophils % 3.3 % (0.1-12.0); Hematocrit 37.7 % (37.0-47.0); Hemoglobin 12.8 g/dL (12.2-16.2); Immature Granulocytes # 0.01 10^3uL; Immature Granulocytes % 0.2 %; Lymphocytes # 1.1 K/mm3 (0.7-4.5); Lymphocytes % 23.2 % (10-50); Mean Corpuscular Hemoglobin 30.6 pg (27.0-31.2); Mean Corpuscular Volume 90.2 fl (81-99); Mean Platelet Volume 9.7 fl (7.4-10.4); Monocytes # 0.5 K/mm3 (0.1-1.0); Monocytes % 10.6 % (1.7-9.3); Neutrophils % 61.9 % (37.0-80.0); Nucleated Red Blood Cells # 0 10^3/uL; Nucleated Red Blood Cells % 0 %; Platelet Count 230 K/mm3 (142-424); Red Blood Count 4.18 M/mm3 (4.20-5.40); Red Cell Distribution Width 12.2 % (11.5-17.5); Red Cell Distribution Width-SD 40.2 fL; White Blood Count 4.8 K/mm3 (4.8-10.8)
[2024-08-19 10:06] LABS: Alanine Aminotransferase 19 U/L (12-78); Albumin Level 4.1 g/dl (3.5-5.0); Albumin/Globulin Ratio 2.3 (1.1-1.8); Alkaline Phosphatase 69 U/L (38-126); Anion Gap 6.8 mEq/L (5-15); Aspartate Amino Transferase 21 U/L (14-36); Bilirubin,Total 1.4 mg/dl (0.2-1.3); Blood Urea Nitrogen 16 mg/dl (7-17); Calcium 8.7 mg/dl (8.4-10.2); Carbon Dioxide 26 mmol/L (22.0-30.0); Chloride 107 mmol/L (98-107); Cholesterol 160 mg/dl (140-200); Estimated Glomerular Filt Rate 62 ml/min (>60); GFR (African American) 75 ML/MIN (>60); Globulin 1.8 g/dL (1.3-3.2); Glucose 92 mg/dl (74-100); HDL Cholesterol 53 mg/dl (40-60); Potassium 3.8 mmoL/L (3.5-5.1); Sodium 136 mmol/L (136-145); Total Protein,Serum 5.9 g/dl (6.3-8.2); Triglycerides 111 mg/dl (30-150); VLDL Cholesterol 22 mg/dL (0-40)
[2024-08-19 10:22] LABS: Free Thyroxine Index 4.4 ug/dL (5.93-13.13); T4 (Thyroxine) 12.8 ug/dl (5.53-11.0); Triiodothryronine (T3) Uptake 34 % (23.5-40.5)
[2024-08-19 10:25] LABS: 25-OH Vitamin D, Total 60.7 ng/mL (30-100)
[2024-08-19 10:35] LABS: Thyroid Stimulating Hormone < 0.02 uIU/mL (0.465-4.68)
[2024-08-19 10:37] LABS: Thyroid Stimulating Hormone < 0.02 uIU/mL (0.465-4.68)
== END 2024-08-19 23:59 | disposition home or self-care (01) ==
LOC: LAB 08:56
PROVIDERS: PCP Internal Medicine Adolescent Medicine; Visit Provider Nurse Practitioner Obstetrics & Gynecology
DX: I10 Essential (primary) hypertension (principal); M81.0 Age-related osteoporosis without current pathological fracture; N95.2 Postmenopausal atrophic vaginitis; L90.0 Lichen sclerosus et atrophicus
CPT/HCPCS: 36415; 80053; 80061; 82306; 84436; 84443; 84479; 85025

== ENCOUNTER 2024-08-23 15:36 | Outpatient (CLI) | payer MEDICARE, BC, SELFPAY ==
--- NOTE | 2024-08-23 16:00 | MM_ITS ---
PROCEDURE INFORMATION: Exam: MG Bilateral Screening 3D Mammography Exam date and time: 08/23/2024 3:56 PM Age: 69 years old Clinical indication: Screening examination. TECHNIQUE: Imaging protocol: Bilateral Screening tomosynthesis and 2D mammography including computer-aided detection (CAD) when performed. COMPARISON: 1. MG MM DIG SCREENING MAMM BI W/CAD 05/14/2022 7:51 AM 2. MG SCBI MM Dig screening mamm BI w/CAD 06/16/2018 9:05 AM FINDINGS: MAMMOGRAPHY: Breast composition: There are scattered areas of fibroglandular density. Mass: None. Architectural distortion: None. Calcifications: No suspicious calcifications. Asymmetric density: None. Skin thickening: None. Axillary adenopathy: None. IMPRESSION: No mammographic evidence of malignancy. Annual screening is recommended unless otherwise clinically indicated. ASSESSMENT: BI-RADS 1, Negative.
== END 2024-08-23 23:59 | disposition home or self-care (01) ==
LOC: RAD 15:38
PROVIDERS: PCP Internal Medicine Adolescent Medicine; Visit Provider Nurse Practitioner Obstetrics & Gynecology
DX: Z12.31 Encounter for screening mammogram for malignant neoplasm of breast (principal); R92.323 Mammographic fibroglandular density, bilateral breasts
CPT/HCPCS: 77063; 77067

== ENCOUNTER 2025-02-03 15:00 | Outpatient (RCR) | payer MEDICARE, BC, SELFPAY | END 2025-02-03 23:59 | disposition home or self-care (01) | LOC: PT 15:00 | PROVIDERS: PCP Internal Medicine Adolescent Medicine; Visit Provider Orthopaedic Surgery | DX: M17.11 Unilateral primary osteoarthritis, right knee (principal); G89.29 Other chronic pain | CPT/HCPCS: 97110; 97163; 97530 ==

== ENCOUNTER 2025-03-02 15:00 | Outpatient (RCR) | payer MEDICARE, BC, SELFPAY | END 2025-03-02 23:59 | disposition home or self-care (01) | LOC: PT 15:00 | PROVIDERS: PCP Internal Medicine Adolescent Medicine; Visit Provider Orthopaedic Surgery | DX: M17.11 Unilateral primary osteoarthritis, right knee (principal) | CPT/HCPCS: 97014; 97110; 97140; G0283 ==

== ENCOUNTER 2025-03-07 13:30 | Outpatient (CLI) | payer MEDICARE, BC, SELFPAY ==
--- OUTSIDE RECORDS SUMMARY | 2025-01-11 13:20 | XMS_ITS | Encounter Summary ---
Author Organization Healthcare Address [address] [place] [address] Care Team Providers Care Pediatric Cns Name Role Phone Elodia Manrique LUZ MARINA Primary Care Provider [phone] Reason for Visit * Reason Comments Consult Encounter Details Date Type Department Care Team (Latest Contact Info) Description 01/11/2025 2:20 PM EDT Office Visit Medical Office Building [facility] [address], [address] [place] [address] Ben Carlos MD [address] [place] [address] Primary osteoarthritis of right knee (Primary Dx) Social History Tobacco Use Types Packs/Day Years Used Date Smoking Tobacco: Never Passive Smoke Exposure: Never Smokeless Tobacco: Never Tobacco Cessation:Counseling Given: No Alcohol Use Standard Drinks/Week Comments Not Currently 0 (1 standard drink = 0.6 oz pure alcohol) Alcoholic Drinks/day: Rarely consumes alcohol Comments No Sex and Gender Information Value Date Recorded Sex Assigned at Female 06/07/2021 11:48 PM EST Legal Sex Female 7:46 PM EDT Gender Identity Female 06/07/2021 11:48 PM EST Sexual Orientation Not on file documented as of this encounter Last Filed Vital Signs Vital Sign Reading Time Taken Comments Blood Pressure 146/72 01/11/2025 1:47 PM EDT Pulse 75 01/11/2025 1:47 PM EDT Temperature - - Respiratory Rate 18 01/11/2025 1:47 PM EDT Oxygen Saturation 98% 01/11/2025 1:47 PM EDT Inhaled Oxygen Concentration - - Weight 104 kg (229 lb 4.5 oz) 01/11/2025 1:47 PM EDT Height 167.6 cm (5' 6 ) 01/11/2025 1:47 PM EDT Body Mass Index 37.01 01/11/2025 1:47 PM EDT documented in this encounter Miscellaneous Notes * Progress Notes - Ben Burger MD - 01/11/2025 2:20 PM EDT This is a 69 y.o. female who presents to the clinic today for evaluation of right knee osteoarthritis. Patient has been managed nonoperatively with combination of corticosteroid injections and multimodal pain control, she continues to have right knee pain limits her activities of daily life. She describes the pain is anterior, medial, lateral, worsened with activity, partially relieved by rest She had previously undergone corticosteroid injections to the right knee, her last injection was 10/05/2024 Medical History: Past Medical History[1] Surgical History: Surgical History[2] Social History: Social History[3] Review of Systems: Denies any fevers, chills or night sweats Physical Examination: Vitals: 01/11/25 1347 BP: (!) 146/72 Pulse: 75 Resp: 18 SpO2: 98% Patient has range of motion of the right knee from 0-120 degrees, stable to varus and valgus stressat 0 and 30 degrees, tender to palpation about the anterior, medial, lateral joint line Imaging: Imaging of the right knee demonstrates subchondral sclerosis of the medial and lateral compartment,loss of joint space medially and laterally, sclerosis of the right patellofemoral joint Assessment: This is a 69 y.o. female with right knee osteoarthritis that is radiographically evident and has failed conservative treatments including consecutive corticosteroid injections. Due to the significantradiographic findings as well as the failure of conservative treatment, patient has a candidate forsurgical intervention for right total knee arthroplasty. Given with the patient has had improvement of her blood pressure with reported blood pressure readings of the 120s systolic at home and measurement of 146/72 here she would have appropriate blood pressure control for surgical intervention Plan: Surgical scheduling orders have been placed with the patient for a right total knee arthroplasty, patient expresses understanding of the risks and benefits of surgery and wishes to proceed Surgical date pending surgical availability and scheduling [1] Past Medical History: Diagnosis Date Fatty liver High cholesterol Hypertension 2010 Obesity 2014 Thyroid disorder [2] Past Surgical History: Procedure Laterality Date CHOLECYSTECTOMY 2003 FOOT SURGERY Left 2016 Foot Surgery [facility] HAND SURGERY Left 2002 Hand Surgery [facility] HYSTERECTOMY N/A 2004 Hysterectomy from [facility] JOINT REPLACEMENT Left 2014 Left unicompartmental knee KNEE SURGERY 2014 WRIST SURGERY Left 2002 [3] Social History Socioeconomic History Marital status: Tobacco Use Smoking status: Never Passive exposure: Never Smokeless tobacco: Never Vaping Use Vaping status: Never Used Substance and Sexual Activity Alcohol use: Not Currently Comment: Alcoholic Drinks/day: Rarely consumes alcohol Drug use: Never Sexual activity: Yes Partners: Male Comment: Hysterectomy Cosigned by Ben Carlos MD at 01/11/2025 2:30 PM EDT Associated attestation - Ben Carlos MD - 01/11/2025 2:30 PM EDT I saw and evaluated the patient with the resident/fellow. I discussed the case with the resident/fellow and agree with the findings and plan as documented. * Progress Notes - Mary Quevedo RN - 01/11/2025 2:20 PM EDT Patient was provided with [facility] Education Packet. Patient was educated using information provided in packet. Patient instructed to schedule PT appointment 3-5 days after surgery date and to schedule prior to having procedure. All questions answered. Contact information for Joint Replacement Nu rse given for patient to call should any questions arise before or after surgery. Pt then met with wax room supervisor to arrange surgery and Joint Replacement Class date. Reviewed patients allergies, medications, medical and surgical history, and pharmacy verified. Instructed patient to stop NSAIDS, ASA, and OTC vitamins & supplements 1 week prior to procedure. Instructed to ensure any hormone replacement, if taken, is stopped 1 month prior to surgery. Also any dermatological procedures or dental work need to be performed 1 month prior to procedure. Patient instructed to review educational material and write down any questions or concerns in the notes section and bring the packet to the hospital and all appointments. Patient stated understanding. Patient prefers SDD. Does the clinical care team anticipate the patient's continued opioid usage until surgery results in the patient having been taking opioid for at least 90 days by the time of their procedure?: No documented in this encounter Plan of Treatment Upcoming Encounters Date Type Department Care Team (Late st Contact Info) Description 06/07/2025 9:40 AM EST Office Visit Medical Office Building [facility] [address], [address] [place] [address] Ben Carlos MD [address] [place] [address] documented as of this encounter Goals Goal Patient Goal Type Associated Problems Recent Progress Patient-Stated? Author Autogenerat ed Goal Care Plan Autogenerated Problem No Rosraio Woodward documented as of this encounter Visit Diagnoses Diagnosis Primary osteoarthritis of right knee- Primary documented in this encounter Additional Health Concerns Active Problems Noted Date Diagnosed Date Autogenerated Problem 01/20/2025 Assessment Noted Time A fall risk assessment has been complete d for the patient 01/11/2025 1:47 PM EDT A Body Mass Index follow-up plan has been documented for the patient 01/11/2025 2:30 PM EDT documented as of this encounter Care Teams Pediatric Cns Relationship Specialty Start Date End Date Elodia Manrique APRN [address] [place] [address] PCP - General 01/10/25 documented as of this encounter
--- OUTSIDE RECORDS SUMMARY | 2025-01-19 05:30 | XMS_ITS | Encounter Summary ---
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 Name Role Phone Elodia Manrique APRN Primary Care Provider [phone] Reason for Referral * Consultation (Routine) - Authorized Specialty Diagnoses / Procedures Referred By Abdiel byrnes Referred To Contact Physical Therapy Diagnoses Primary osteoarthritis of one knee, right Norma Larsen APRN [address] [facility] [address] [place] [address] Phone: tel: fax: Referral ID Status Reason Start Date Expiration Date Visits Requested Visits Authorized [id number] Authorized Specialty Services Required 07/21/2026 1 1 Reason for Visit * Auth/Cert (Routine) Specialty Diagnoses / Procedures Referred By Abdiel byrnes Referred To Contact Diagnoses Primary osteoarthritis of one knee, right Primary osteoarthritis of one knee, right [M17.11] Procedures MI TOTAL KNEE ARTHROPLASTY MI TOTAL KNEE ARTHROPLASTY ARTHROPLASTY, KNEE, TOTAL Ben August MD [address] [facility] [address] [place] [address] Phone: tel: fax: [facility] Operating Room [address] [place] [address] Phone: tel: Referral ID Status Reason Start Date Expiration Date Visits Re quested Visits Authorized [id number] 1 1 Encounter Details Date Type Department Care Team (Latest Contact Info) Description 01/19/2025 6:30 AM EDT - 01/20/2025 1:55 PM EDT Hospital Encounter [facility] [address] [place] [address] Ben August MD [address] [place] [address] Primary osteoarthritis of one knee, right (Primary Dx) Discharge Disposition: Home or Self Care Social History Tobacco Use Types Packs/Day Years Used Date Smoking Tobacco: Never Passive Smoke Exposure: Never Smokeless Tobacco: Never Alcohol Use Standard Drinks/Week Comments Not Currently [...] Sign Reading Time Taken Comments Blood Pressure 127/72 01/20/2025 12:10 PM EDT Pulse 71 01/20/2025 12:10 PM EDT Temperature 36.4 C (97.5 F) 01/20/2025 12:10 PM EDT Respiratory Rate 14 01/20/2025 7:45 AM EDT Oxygen Saturation 96% 01/20/2025 12:10 PM EDT Inhaled Oxygen Concentration - - Weight 104 kg (229 lb 4.5 oz) 01/19/2025 8:51 AM EDT Height 167.6 cm (5' 6 ) 01/19/2025 8:51 AM EDT Body Mass Index 37.01 01/19/2025 8:51 AM EDT documented in this encounter Functional Status * Calculated C-SSRS Risk Score (Lifetime/Recent) Answer Date of Assessment Author No Risk Indicated 01/20/2025 9:00 AM EDT Tyshawn Alvares RN * Question Answer Date of Assessment Author 1. Wish to be (Past 1 Month) No 9:00 AM EDT Sarah Alvares RN 2. Non-Specific Active Suici anali Thoughts (Past 1 Month) No 01/20/2025 9:00 AM EDT Daquan Alvares RN 6. Suicidal Behavior (Lifetime) No 9:00 AM EDT Sarah Alvares, RN documented as of this encounter Discharge Instructions * Discharge Instructions* Paola Wood MD - 01/19/2025 9:46 AM EDT 1. You will be on Eliquis 2.5mg twice daily for 28 days for deep vein thrombosis prevention. It is important that you complete all 28 days of your medication. 2. Please see your discharge medication list for the post-operative medications you have been given. Call the clinic with any questions or concerns. 3. You have been given Docusate Sodium to take daily to prevent constipation while taking narcotic pain medications. Take this as long as you are taking narcotics. You can also begin Miralax daily and continue until you have weaned off narcotic pain medications. If you have had no bowel movement onpost-op day #3 you need to take Milk of Magnesia as directed over the counter. Then if no bowel movement by post-op day #5 you need to use a Dulcolax Suppository over the counter as directed. If still no bowel movement at that time your need to call the clinic. 4. Do not submerge wound. No tub baths, swimming or submerging your wound in water. May shower according to your wound care instructions. 5. Your incision was closed with Dermabond Prineo and covered with a dressing and chinedu wrap. You mayremove the dressing and chinedu wrap in 2 days. The prineo tape will remain in place until your follow-up appointment or will fall off on its own. Do not remove the Prineo tape yourself. You may shower with this on, but do not soak your incision in water. Do not put any topical ointments or creams on the incision. Call the clinic with any drainage or concerns. documented in this encounter Medications at Time of Discharge acetaminophen (Tylenol Extra Strength) 500 MG tablet Take 1 tablet by mouth every 6 hours. 100 tablet 01/20/2025 apixaban (Eliquis) 2.5 MG tablet Take 1 tablet by mouth 2 times a day. For 4 weeks post-op for blood clot prevention 56 tablet 01/20/2025 Biotin-Vitamin C (HAIR SKIN NAILS GUMMIES PO) Take 1 Chewable tablet by mouth daily. cholecalciferol (Vitamin D3) 25 MCG (1000 UT) tablet Take 1 tablet by mouth daily. estradiol (Vagifem) 10 MCG tablet vaginal tablet Insert 1 tablet into the vagina every other day. 05/20/2023 ibuprofen 200 MG tablet Take 1 tablet by mouth every 6 hours as needed for mild pain. levothyroxine (Synthroid, Levoxyl) 137 MCG tablet Take 1 tablet by mouth daily. 04/19/2022 losartan (Cozaar) 50 MG tablet Take 1 tablet by mouth 2 times a day. 12/30/2024 naloxone (Narcan) 4 mg/0.1 mL nasal spray 1. Give 1 spray in nostril for no/slow breathing or cannot wake after opioid use 2. Call 911 3. Repeat in other nostril if symptoms continue 1 each 01/19/2025 oxyCODONE (Roxicodone) 5 MG immediate release tablet Take 1 tablet by mouth every 6 hours as needed for severe pain for up to 50 doses. 50 tablet 01/19/2025 rosuvastatin (Crestor) 20 MG tablet Take 1 tablet by mouth nightly. traMADol (Ultram) 50 MG tablet Take 1 tablet by mouth every 6 hours as needed for moderate pain. Take 1 or 2 tablets every 4-6 hours as needed for moderate pain 56 tablet 01/19/2025 triamcinolone (Kenalog) 0.1 % lotion Apply 1 Application topically as needed for rash or irritation. 05/29/2021 cefadroxil (Duricef) 500 MG capsuleIndications: Primary osteoarthritis of one knee, right Take 1 capsule by mouth 2 times a day for 7 days. To prevent post-op infection 14 capsule 01/20/2025 01/28/20 25 docusate sodium (Colace) 250 MG capsule Take 1 capsule by mouth 2 times a day. 60 capsule 01/19/2025 02/19/20 25 meloxicam (Mobic) 15 MG tablet Take 1 tablet by mouth daily. For 4 weeks post-op 30 tablet 01/19/2025 02/19/20 25 omeprazole (PriLOSEC) [address] capsule Take 1 capsule by mouth daily for 28 days. Do not crush or chew. 28 capsule 01/19/2025 02/17/20 25 ondansetron ODT (Zofran-ODT) 4 MG disintegrating tablet Dissolve 1 tablet on the tongue every 8 hours as needed for nausea or vomiting for up to 7 days. 20 tablet 01/19/2025 01/27/20 25 gabapentin (Neurontin) 100 MG capsule Take 1 capsule by mouth 3 times a day. If this medication makes you drowsy you may take it only at bedtime 30 capsule 01/19/2025 02/11/20 25 documented as of this encounter Miscellaneous Notes * Progress Notes - Cristiana Hughes - 01/20/2025 1:06 PM EDT Occupational Therapy Evaluation Patient Name: Felicia Seals Today's Date: 01/20/2025 OT Discharge Recommendations: Home with assistance, Outpatient PT Equipment Recommended: Patient owns appropriate equipment (FWW provided) History Felicia Seals is 69 y.o. female admitted 01/19/2025 for work-up of Primary osteoarthritis of one knee, right. Problem List Active Hospital Problems Diagnosis Date Noted Primary osteoarthritis of one knee, right 01/11/2025 Procedures 01/19/2025 Procedure(s): ARTHROPLASTY, KNEE, TOTAL Past Medical History Patient has a past medical history of Adverse effect of anesthesia, Anxiety, Arthritis, Fatty liver, High cholesterol, Hypertension (2009), Hypothyroidism, Obesity (2013), Syncope, and Thyroid disorder. Past Surgical History Patient has a past surgical history that includes Hand surgery (Left, 2001); Hysterectomy (N/A, 2003); Foot surgery (Left, 2016); Cholecystectomy (2002); Joint replacement (Left, 2014); Wrist surgery(Left, 2001); Colonoscopy; and Other surgical history. Precautions Right Lower Extremity Weight Bearing Status: Weight Bearing as Tolerated Medical Precautions: Fall precautions Subjective Pt agreeable to session Participants in Care Family/Caregiver Present: No Family/Caregiver: Spouse Card Runner: Not Applicable Presentation Oxygen Therapy: None (Room air) Lines and Tubes: Intravenous access Pre-Session: Sitting in chair Pre-Session Comments: RN and pt consent Post-Session: Call light in reach, Chair alarm, Sitting in chair, RN notified Post-Session Comments: immediate needs met Home Living/Set-up Lives With: Spouse Home Type: House Home Adaptive Equipment: Cane Home Layout: One level Bathroom: Tub/Shower: Tub/Shower combo Bathroom: Toilet: Standard Prior Level of Function Receives Help From: No assist required prior to admission Level of Mobility: Ambulatory- community Mobility [place]: Independent gait without device History of Falls: No ADL Performance: Independent Patient/Family Goals Statement Full recovery Objective Pain Pt notes feeling a little sore Delirium Screening RASS: Alert and calm Confusion Assessment Method-ICU (CAM-ICU/PCAM-ICU) Feature 3: Altered Level of Consciousness: Negative Cognition Overall Cognitive Status: Within Functional Limits Arousal/Alertness: Appropriate responses to stimuli Mood/Behavior: Alert Orientation Level: Oriented X4 Single Step Commands: Consistently Multi-Step Commands: Consistently Method of Communication: Verbal Right Upper Extremity Examination RUE ROM Assessment RUE Assessment: Within Functional Limits Manual Muscle Testing - RUE: Within functional limits Left Upper Extremity Examination LUE ROM Assessment LUE Assessment: Within Functional Limits Manual Muscle Testing - LUE: Within functional limits Right Lower Extremity Examination RLE ROM Assessment RLE Assessment: Exceptions to WFL (decreased related to pain) Manual Muscle Testing - RLE: (not tested) Left Lower Extremity Examination LLE ROM Assessment LLE Assessment: Within Functional Limits Manual Muscle Testing: Within functional limits Transfers Transfer Exam: Sit to stand Level of [place]: Stand-by assist Physical/Nonphysical Assist: Supervision, Verbal Cues Assistive Device: Walker, rolling Transfer Exam: Stand to Sit Level of [place]: Stand-by assist Physical/Nonphysical Assist: Supervision, Set-up required, Verbal Cues Assistive Device: Walker, rolling Transfer Exam: Bed to Chair/Chair to Bed Level of [place]: Stand-by assist Physical/Nonphysical Assist: Supervision Assistive Device: Walker, rolling Toilet Transfer Level of [place]: Stand-by assist Physical/Nonphysical Assist: Supervision Type of Transfer: Stand-pivot Assistive Device: Walker, rolling Balance Static Sitting Balance Static Sitting-Balance Support: No upper extremity support, Feet supported Static Sitting-Level of Assistance: Supervision Dynamic Sitting Balance Dynamic Sitting-Balance Support: No upper extremity support, Feet supported Dynamic Sitting-Balance: Anterior/Posterior weight shifts, Lateral weight shifts Level of Assistance: Standby assisst Static Standing Balance Static Standing-Balance Support: Right upper extremity support, Left upper extremity support Static Standing-Level of Assistance: Standby assist Dynamic Standing Balance Dynamic Standing-Balance Support: Right upper extremity support, Left upper extremity support Dynamic Standing-Balance: Anterior/Posterior weight shifts, Lateral weight shifts Dynamic Standing Level of Assistance: Standby assist Self-Care Interventions Self Care/Home Management (ADLs) Time Entry: 9 Grooming Grooming Level of Assistance: Independent UE Dressing UE Dressing Level of Assistance: Independent Lower Extremity Dressing Pants Level of Assistance: Supervision Sock Level of Assistance: Close supervision Shoe Level of Assistance: Close supervision, Setup Adult Briefs Level of Assistance: Close supervision LE Dressing Where Assessed: Chair level Toileting Toileting Level of Assistance: Supervision Where Assessed: Toilet Pt completed additional ADL training including Grooming, UE Dressing, LE Dressing, Toileting transfer, Toileting hygiene, Education on bathroom and shower safety, Functional mobility to simulate household distance/management, and IADL/Home management techniques. OT provided CGA to SBA for balance with additional verbal cues for safety, posture, and adaptive techniques. Education on shower transfer and the benefit of initial supervision for bathing as heat and pain medication may cause dizzinessand LOB increasing risk for fall. Pt vocalized understanding after OT provided education on purposeand use of Cryo cuff, how to properly don and doff, and need for barrier to skin. OT provided education on the importance of positioning while at rest to promote extension. Standardized Assessments [facility] 6-Click Daily Activities Help from Other: Don/Doff Regular Lower Body Clothings: Little Help From Other: Bathing: None Help From Other: Toileting: None Help From Other: Don/Doff Upper Body Clothings: None Help From Other: Grooming: None Help From Other: Eating Meals: None [facility] 6 Click - Daily Activities Score: 23 Assessment Pt able to benefit from skilled OT services on this date. Pt demonstrated good effort and understanding throughout. Pt presents with R TKA. Pt able to safely complete BADLs and functional mobility athousehold distance on this date. Pt will benefit from outpatient PT and home with assistance. OT Findings: Impaired functional mobility Evaluation/Treatment Tolerance: Patient limited by pain Rehab Potential: Good, to achieve stated therapy goals Eval Complexity Occupational Profile: Brief history including review of medical/therapy records relating to presenting problem Performance Deficits: Physical Clinical Decision Making: Low Overall Eval complexity: Low OT Recommendations Discharge Destination: Home with assistance, Outpatient PT Discharge Equipment: Patient owns appropriate equipment (FWW provided) Plan Patient no longer demonstrates need for inpatient occupational therapy services. Patient to be discharged from occupational therapy. Written by Cristiana Hughes on 01/20/25 at 1:06 PM. * Discharge Summary - Norma Larsen APRN - 01/20/2025 11:48 AM EDT Hospitalization Admit Date/Time: 01/19/2025 6:30 AM Admitting Attending: Ben August Discharge Date: 01/20/2025 Discharge Attending Physician: Ben August MD PCP name and Address: Elodia Manrique, PILLAR WORKER [address] [place] [address] / [place] [address] Referring provider name and address: No referring provider defined for this encounter. Chief Concern, Brief History of Present Illness, and Hospital Course Patient arrived to [facility] on 01/19/2025 for their scheduled right total knee arthroplasty. Patient tolerated the procedure without complication, was extubated in the operating room, and transferred to the PACU for recovery from anesthesia. Shortly thereafter, patient was transferred to the acute care floor for recovery. Patient's hospital course was without complications. Patientwas given prophylactic antibiotics, pain was controlled on oral pain medications, and patient tolerated a regular diet. The patient was kept on DVT prophylaxis with SCD's and eliquis due to hormone use. The patient was cleared to be discharged by PT/OT prior to discharge. The patient was dischargedhome. Surgeries and Procedures ARTHROPLASTY, KNEE, TOTAL (Right) Medication List PAUSE taking these medications estradiol 10 MCG tablet vaginal tablet Wait to take this until: February 16, 2025 Commonly known as: Vagifem Insert 1 tablet into the vagina every other day. ibuprofen 200 MG tablet Wait to take this until: February 16, 2025 Take 1 tablet by mouth every 6 hours as needed for mild pain. .. acetaminophen 500 MG tablet Commonly known as: Tylenol Extra Strength Take 1 tablet by mouth every 6 hours. apixaban 2.5 MG tablet Commonly known as: Eliquis Take 1 tablet by mouth 2 times a day. For 4 weeks post-op for blood clot prevention cefadroxil 500 MG capsule Commonly known as: Duricef Take 1 capsule by mouth 2 times a day for 7 days. To prevent post-op infection cholecalciferol 25 MCG (1000 UT) tablet Commonly known as: Vitamin D3 Take 1 tablet by mouth daily. docusate sodium 250 MG capsule Commonly known as: Colace Take 1 capsule by mouth 2 times a day. gabapentin 100 MG capsule Commonly known as: Neurontin Take 1 capsule by mouth 3 times a day. If this medication makes you drowsy you may take it only at bedtime HAIR SKIN NAILS GUMMIES PO Take 1 Chewable tablet by mouth daily. levothyroxine 137 MCG tablet Commonly known as: Synthroid, Levoxyl Take 1 tablet by mouth daily. losartan 50 MG tablet Commonly known as: Cozaar Take 1 tablet by mouth 2 times a day. meloxicam 15 MG tablet Commonly known as: Mobic Take 1 tablet by mouth daily. For 4 weeks post-op naloxone 4 mg/0.1 mL nasal spray Commonly known as: Narcan 1. Give 1 spray in nostril for no/slow breathing or cannot wake after opioid use 2. Call 911 3. Repeat in other nostril if symptoms continue omeprazole [address] capsule Commonly known as: PriLOSEC Take 1 capsule by mouth daily for 28 days. Do not crush or chew. ondansetron ODT 4 MG disintegrating tablet Commonly known as: Zofran-ODT Dissolve 1 tablet on the tongue every 8 hours as needed for nausea or vomiting for up to 7 days. oxyCODONE 5 MG immediate release tablet Commonly known as: Roxicodone Take 1 tablet by mouth every 6 hours as needed for severe pain for up to 50 doses. rosuvastatin 20 MG tablet Commonly known as: Crestor Take 1 tablet by mouth nightly. traMADol 50 MG tablet Commonly known as: Ultram Take 1 tablet by mouth every 6 hours as needed for moderate pain. Take 1 or 2 tablets every 4-6 hours as needed for moderate pain triamcinolone 0.1 % lotion Commonly known as: Kenalog Apply 1 Application topically as needed for rash or irritation. Where to Get Your Medications These medications were sent to [facility] - [phone] [address] acetaminophen 500 MG tablet apixaban 2.5 MG tablet cefadroxil 500 MG capsule docusate sodium 250 MG capsule gabapentin 100 MG capsule meloxicam 15 MG tablet naloxone 4 mg/0.1 mL nasal spray omeprazole [address] capsule ondansetron ODT 4 MG disintegrating tablet oxyCODONE 5 MG immediate release tablet traMADol 50 MG tablet Discharge Diagnosis Medical Problems Active and Resolved Hospital Problems Hospital * (Principal) Primary osteoarthritis of one knee, right Post Discharge Instructions 1. You will be on Eliquis 2.5mg twice daily for 28 days for deep vein thrombosis prevention. It is important that you complete all 28 days of your medication. 2. Please see your discharge medication list for the post-operative medications you have been given. Call the clinic with any questions or concerns. 3. You have been given Docusate Sodium to take daily to prevent constipation while taking narcotic pain medications. Take this as long as you are taking narcotics. You can also begin Miralax daily and continue until you have weaned off narcotic pain medications. If you have had no bowel movement onpost-op day #3 you need to take Milk of Magnesia as directed over the counter. Then if no bowel movement by post-op day #5 you need to use a Dulcolax Suppository over the counter as directed. If still no bowel movement at that time your need to call the clinic. 4. Do not submerge wound. No tub baths, swimming or submerging your wound in water. May shower according to your wound care instructions. 5. Your incision was closed with Dermabond Prineo and covered with a dressing and chinedu wrap. You mayremove the dressing and chinedu wrap in 2 days. The prineo tape will remain in place until your follow-up appointment or will fall off on its own. Do not remove the Prineo tape yourself. You may shower with this on, but do not soak your incision in water. Do not put any topical ointments or creams on the incision. Call the clinic with any drainage or concerns. Outpatient Follow-Up Future Appointments Date Time Provider Department Center 02/08/2025 12:30 PM Ben August MD [facility]TH[facility] Test Results Pending At Discharge None Pertinent Physical Exam At Time of Discharge Right lower extremity: Inspection: Dressing clean, dry, and intact Motor: TA, GSC, EHL, and FHL intact Sensory: SILT in SP, DP, T, Sa, and Watkins nerve distributions Vascular: Palpable DP pulse, toes WWP Discharge Disposition/Condition Disposition: Home Condition: Stable (s/sx potential problems absent or manageable) I spent < 30 minutes of patient care and instruction time in preparation for this discharge. Cosigned by Ben August MD at 01/20/2025 1:01 PM EDT Associated attestation - Ben August MD - 01/20/2025 1:01 PM EDT Signature only. * Care Plan - Sarah Alvares - 01/20/2025 11:24 AM EDT Problem: Adult Inpatient Plan of Care Goal: Plan of Care Review Outcome: Ongoing, Progressing Flowsheets (Taken 01/20/2025 1121) Progress: improving Outcome Evaluation: Pt will verbalize less pain this shift Plan of Care Reviewed With: patient Goal: Patient-Specific Goal (Individualized) Outcome: Ongoing, Progressing Flowsheets (Taken 01/20/2025 0900) Patient/Family-Specific Goals (Include Timeframe): pt will remain free from injury this shift Individualized Care Needs: pt safety Anxieties, Fears or Concerns: none stated Goal: Absence of Hospital-Acquired Illness or Injury Outcome: Ongoing, Progressing Intervention: Identify and Manage Fall Risk Flowsheets (Taken 01/20/2025 0900) Safety Promotion/Fall Prevention: clutter-free environment maintained assistive device/personal items within reach fall prevention program maintained lighting adjusted mobility aid in reach nonskid shoes/slippers when out of bed room organization consistent toileting scheduled safety round/check completed Intervention: Prevent Skin Injury Flowsheets (Taken 01/20/2025899) Body Position: weight shifting Skin Protection: protective footwear used transparent dressing maintained Intervention: Prevent and Manage VTE (Venous Thromboembolism) Risk Flowsheets (Taken 01/20/2025899) VTE Prevention/Management: bilateral SCDs (sequential compression devices) on Intervention: Prevent Infection Flowsheets (Taken 01/20/2025899) Infection Prevention: environmental surveillance performed equipment surfaces disinfected hand hygiene promoted rest/sleep promoted single patient room provided Goal: Optimal Comfort and Wellbeing Outcome: Ongoing, Progressing Intervention: Monitor Pain and Promote Comfort Flowsheets (Taken 01/20/2025899) Pain Management Interventions: medication (see MAR) Intervention: Provide Person-Centered Care Flowsheets (Taken 01/20/2025899) Trust Relationship/Rapport: care explained choices provided emotional support provided empathic listening provided questions answered questions encouraged reassurance provided thoughts/feelings acknowledged Problem: Fall Injury Risk Goal: Absence of Fall and Fall-Related Injury Outcome: Ongoing, Progressing Intervention: Identify and Manage Contributors Flowsheets (Taken 01/20/2025899) Medication Review/Management: medications reviewed Self-Care Promotion: independence encouraged BADL personal objects within reach Intervention: Promote Injury-Free Environment Flowsheets (Taken 01/20/2025899) Safety Promotion/Fall Prevention: clutter-free environment maintained assistive device/personal items within reach fall prevention program maintained lighting adjusted mobility aid in reach nonskid shoes/slippers when out of bed room organization consistent toileting scheduled safety round/check completed Problem: Knee Arthroplasty Goal: Absence of Bleeding Outcome: Ongoing, Progressing Intervention: Monitor and Manage Bleeding Flowsheets (Taken 01/20/2025899) Bleeding Management: dressing monitored Goal: Optimal Functional Ability Outcome: Ongoing, Progressing Intervention: Promote Optimal Functional Status Flowsheets Taken 01/20/2025 1121 Assistive Device Utilized: front wheel walker Taken 01/20/2025899 Activity Management: activity encouraged activity adjusted per tolerance Self-Care Promotion: independence encouraged BADL personal objects within reach Goal: Absence of Infection Signs and Symptoms Outcome: Ongoing, Progressing Intervention: Prevent or Manage Infection Flowsheets (Taken 01/20/2025899) Infection Management: aseptic technique maintained Fever Reduction/Comfort Measures: lightweight bedding lightweight clothing Isolation Precautions: precautions maintained Goal: Intact Neurovascular Status Outcome: Ongoing, Progressing Intervention: Prevent or Manage Neurovascular Compromise Flowsheets Taken 01/20/2025 1121 Compartment Syndrome Management: active flexion/extension encouraged Neurovascular Pressure Management: ice/cold therapy applied Taken 01/20/2025 0900 Compartment Syndrome Surveillance: no pain with passive muscle stretch Goal: Optimal Pain Control and Function Outcome: Ongoing, Progressing Intervention: Prevent or Manage Pain Flowsheets Taken 01/20/2025 1121 Complementary Therapy: music therapy provided Taken 01/20/2025 0900 Pain Management Interventions: medication (see MAR) Diversional Activities: television smartphone * Progress Notes - Selena Rider - 01/20/2025 11:20 AM EDT Physical Therapy Treatment Patient Name: Felicia Seals Today's Date: 01/20/2025 PT Discharge Recommendations: Home with assistance, Outpatient PT Equipment Recommended: Rolling walker Subjective Patient agreeable to participate, reports being hopeful to go home later today Participants in Care Family/Caregiver Present: No Family/Caregiver: Spouse Card Runner: Not Applicable Presentation Oxygen Therapy: None (Room air) Lines and Tubes: Intravenous access Pre-Session: Sitting in chair Pre-Session Comments: RN and pt consent Post-Session: Call light in reach, Chair alarm, Sitting in chair, RN notified Post-Session Comments: immediate needs met Precautions Right Lower Extremity Weight Bearing Status: Weight Bearing as Tolerated Medical Precautions: Fall precautions Objective Pain 6/10 Delirium Screening RASS: Alert and calm Confusion Assessment Method-ICU (CAM-ICU/PCAM-ICU) Feature 3: Altered Level of Consciousness: Negative Transfers Transfer Exam: Sit to stand Level of [place]: Stand-by assist Physical/Nonphysical Assist: Supervision, Verbal Cues Assistive Device: Walker, rolling Transfer Exam: Stand to Sit Level of [place]: Stand-by assist Physical/Nonphysical Assist: Supervision, Set-up required, Verbal Cues Assistive Device: Walker, rolling Balance Static Sitting Balance Static Sitting-Balance Support: No upper extremity support, Feet supported Static Sitting-Level of Assistance: Supervision Dynamic Sitting Balance Dynamic Sitting-Balance Support: No upper extremity support, Feet supported Dynamic Sitting-Balance: Anterior/Posterior weight shifts, Lateral weight shifts Level of Assistance: Standby assisst Static Standing Balance Static Standing-Balance Support: Right upper extremity support, Left upper extremity support Static Standing-Level of Assistance: Standby assist Dynamic Standing Balance Dynamic Standing-Balance Support: Right upper extremity support, Left upper extremity support Dynamic Standing-Balance: Anterior/Posterior weight shifts, Lateral weight shifts Dynamic Standing Level of Assistance: Standby assist Therapeutic Activity (8 minutes) Patient performed therapeutic activities as detailed in transfers and posture/balance sections. Sheperformed multiple sit to/from stand transfers and standing balance tasks, both static and dynamic. Gait Training (15 minutes) Device: Rolling walker Apparatus: None Assistance: Standby assist Distance: 150 ft Gait Analysis: antalgic pattern with decreased R stance time Gait Training Interventions: cues for upright posture, forward gaze and initial R heel strike Stairs Rails : Bilateral Device: No device Assistance: SBA Number of Stairs: 3 steps Stair Training Interventions: verbal cues for sequencing and for step to pattern Therapeutic Exercise (15 minutes) Access Code: [email or web address] URL: [email or web address] Date: 01/19/2025 Prepared by: Selena Rider Program Notes Total Knee Replacement Exercises - Phase 1 (Days 1-7) Ankle Pumps - 3 x daily - 20 reps - 3 hold - Phase 1 (Days 1- 7) Knee Push Downs - 3 x daily - 20 reps - 3 hold - Phase 1 (Days 1-7) Buttocks Squeeze - 3 x daily - 20 reps - 3 hold - Phase I Supine Heel Slide Days 1-7 - 3 x daily -1 sets - 20 reps - Phase 1 (Days 1-7) Short Arc Quad - 2 x daily - 20 reps - 3 hold - Straight Leg Raise - 2 x daily - 20 reps - 3 hold - Phase 1 (Days 1-7) Hip abduction/Adduction - 2 x daily - 20 reps - 3 hold - Phase 1 ( Days 1-7) Calf Stretch with Towel - 3 x daily - 4 reps - 30 hold - Phase 1 Day 1-7 Towel Prop - 3 x daily - 15-30 minutes - Phase 1 (Days 1-7) Seated Knee Flexion - 3 x daily - 20 reps - 3 hold - Phase 1 (Days 1-7) Long Arc Quad - 2 x daily - 20 reps - 3 hold - Phase 2 Days 8- Towel Prop with Weight - 3 x daily - 10 reps - 3 hold - 2-5 lbs weight on knee - Phase 2 ( Days8-) Prone Knee Flexion - 3 x daily - 20 reps - 3 hold - Phase 2 ( Days 8-) Knee Flexion with Overpressure - 3 x daily - 20 reps - 3 hold - Phase 2 ( Days 8-) Standing Marching - 3 x daily - 10reps - 3 hold - Phase 2 ( Days 8-) Hip Abduction - 3 x daily - 10 reps - 3 hold - Phase 2 ( Days 8-) Standing Hip Flexion - 3 x daily - 10 reps - 3 hold - Phase 2 ( Days 8-) Hip Extension - 3 xdaily - 10 reps - 3 hold - Phase 2 (Days 8-) Gastroc Stretch - 3 x daily - 4 reps - 30 hold - Phase 2 (Days 8-) Stretching: Hamstring Stretch - 3 x daily - 4 reps - 30 hold - Phase 3 ( Days 15-) Wall Slide - 3 x daily - 20 reps - Phase 3 ( Days 15-) Single Leg Step-Up - 3 x daily - 20 reps - Phase 3( Days 15-) Step Down - 3 x daily - 10 reps - Phase 3 ( Days 15-) Bilateral Heel Raises- 3 x daily - 10 reps - Phase 3 (Days 15-) Standing Toe Raises - 3 x daily - 20 reps - Phase 3 (Days 15-) Balance: Unilateral (Single Leg Stance) - 3 x daily - 4 reps - 30 hold - Phase 3 ( Days -) Side Step - 3 x daily - 4 reps Patient Education - Total Knee Replacement Instructions Completed all Phase 1 exercises with pt, reviewed written program with pt Assessment Pt tolerated session without complications; will continue to benefit from skilled IP PT during hospitalization PT Recommendations Discharge Destination: Home with assistance, Outpatient PT Discharge Equipment: Rolling walker Plan Continue PT PT Goals PT GOAL DETAILS Goal Established Date Time Frame Goal Status PT Goal 1: Patient will perform sit to/from stand transfers with supervision and safe technique 01/19/25 2 weeks PT Goal 2: Patient will ambulate x 150 ft with RW and supervision 01/19/25 2 weeks PT Goal 3: Patient will navigate 3 stairs with bilateral hand rails with SBA 01/19/25 2 weeks Written by Selena Rider on 01/20/25 at 12:46 PM. * Progress Notes - Paola Wood MD - 01/20/2025 5:57 AM EDT ORTHOPAEDIC SURGERY RECON PROGRESS NOTE 01/20/2025 SUBJECTIVE No acute events overnight. Doing well and resting comfortably in the recliner this morning. Feelingdrowsy. Has been working hard on knee extension. A little sore this morning, but pain controlled. Tolerating diet. No nausea, vomiting, fevers or chills. Has not yet had a bowel movement. Ambulated with PT. No stated questions or concerns at this time. OBJECTIVE Visit Vitals BP 129/66 (BP Location: Right arm, Patient Position: Lying) Pulse 77 Temp 36.6 ??C (97.8 ??F) (Oral) Resp 14 Ht 1.676 m (5' 6 ) Wt 104 kg (229 lb 4.5 oz) SpO2 94% BMI 37.01 kg/m?? OB Status Hysterectomy Smoking Status Never BSA 2.2 m?? PHYSICAL EXAMINATION General: No acute distress Non-labored breathing Peripheral perfusion intact Focused Musculoskeletal Exam: Right Lower Extremity Inspection: Dressing clean, dry, and intact Motor Exam: Fires TA, GSC, EHL, FHL Sensory Exam: SILT DP, SP, Tib, Watkins, and Sa nerve distributions Vascular Exam: Toes WWP ASSESSMENT AND PLAN Felicia Seals is a 69 y.o. female patient s/p R TKA (01/19) Multi-modal pain control Nutritional optimization Bowel regimen Mobility Orders Mobility Protocol: General - Mobility Guidelines Extremity Precautions: Extremity Precautions Extremity: RLE Mobility Restrictions (RLE): Weight bear as tolerated (WBAT) Type of Brace (RLE): None Other mobility precautions: Other precautions Other mobility precautions: Other Other: Out of bed to chair 2 hours post-op DVT prophylaxis: Eliquis PT/OT recommendations: Discharge Recommendation: Home with assistance, Outpatient PT Follow up: Dr. August on 02/08 at [facility], Orthopaedic Surgery [address] [place] [address],[address], [place] [address], Disposition: Anticipate discharge today Shelley Wood MD Orthopaedic Surgery PGY-1 [facility] Orthopaedic Trauma Service Pager: [phone] Orthopaedic Recon/Spine/Foot and Ankle Service Pager: [phone] Personal Pager: Cosigned by Ben August MD at 01/20/2025 8:17 AM EDT Associated attestation - Ben August MD - 01/20/2025 8:17 AM EDT Signature only. * Care Plan - Ying Hutton - 01/19/2025 9:21 PM EDT Problem: Adult Inpatient Plan of Care Goal: Plan of Care Review Outcome: Ongoing, Progressing Flowsheets Taken 01/19/20252118 by Ying Hutton Progress: improving Outcome Evaluation: PT will verbalize adequate pain control throughout shift. Taken 01/19/2025 1541 by Augustin Salazar RN Plan of Care Reviewed With: patient Goal: Patient-Specific Goal (Individualized) Outcome: Ongoing, Progressing Goal: Absence of Hospital-Acquired Illness or Injury Outcome: Ongoing, Progressing Intervention: Identify and Manage Fall Risk Flowsheets (Taken 01/19/20251999) Safety Promotion/Fall Prevention: nonskid shoes/slippers when out of bed room organization consistent safety round/check completed Intervention: Prevent Skin Injury Flowsheets (Taken 01/19/20252118) Body Position: weight shifting Skin Protection: protective footwear used Intervention: Prevent and Manage VTE (Venous Thromboembolism) Risk Flowsheets (Taken 01/19/20251955) VTE Prevention/Management: bilateral SCDs (sequential compression devices) on Intervention: Prevent Infection Flowsheets (Taken 01/19/20252118) Infection Prevention: hand hygiene promoted Goal: Optimal Comfort and Wellbeing Outcome: Ongoing, Progressing Intervention: Monitor Pain and Promote Comfort Flowsheets (Taken 01/19/20252118) Pain Management Interventions: medication (see MAR) pillow support provided position adjusted Intervention: Provide Person-Centered Care Flowsheets (Taken 01/19/20252118) Trust Relationship/Rapport: care explained choices provided thoughts/feelings acknowledged Problem: Fall Injury Risk Goal: Absence of Fall and Fall-Related Injury Outcome: Ongoing, Progressing Intervention: Identify and Manage Contributors Flowsheets (Taken 01/19/20252118) Medication Review/Management: medications reviewed Self-Care Promotion: independence encouraged BADL personal objects within reach Intervention: Promote Injury-Free Environment Flowsheets (Taken 01/19/20251999) Safety Promotion/Fall Prevention: nonskid shoes/slippers when out of bed room organization consistent safety round/check completed Problem: Knee Arthroplasty Goal: Absence of Bleeding Outcome: Ongoing, Progressing Intervention: Monitor and Manage Bleeding Flowsheets (Taken 01/19/20252118) Bleeding Management: dressing monitored Goal: Optimal Functional Ability Outcome: Ongoing, Progressing Intervention: Promote Optimal Functional Status Flowsheets (Taken 01/19/20252118) Activity Management: activity adjusted per tolerance activity encouraged Self-Care Promotion: independence encouraged BADL personal objects within reach Goal: Absence of Infection Signs and Symptoms Outcome: Ongoing, Progressing Intervention: Prevent or Manage Infection Flowsheets (Taken 01/19/20252118) Infection Management: aseptic technique maintained Fever Reduction/Comfort Measures: lightweight bedding lightweight clothing Isolation Precautions: precautions maintained Goal: Intact Neurovascular Status Outcome: Ongoing, Progressing Intervention: Prevent or Manage Neurovascular Compromise Flowsheets (Taken 01/19/20252118) Compartment Syndrome Management: active flexion/extension encouraged Compartment Syndrome Surveillance: no pain with passive muscle stretch Neurovascular Pressure Management: ice/cold therapy applied Goal: Optimal Pain Control and Function Outcome: Ongoing, Progressing Intervention: Prevent or Manage Pain Flowsheets (Taken 01/19/20252118) Pain Management Interventions: medication (see MAR) pillow support provided position adjusted Diversional Activities: television smartphone * Progress Notes - Selena Rider - 01/19/2025 4:06 PM EDT Physical Therapy Evaluation Patient Name: Felicia Seals Today's Date: 01/19/2025 PT Discharge Recommendations: Home with assistance, Outpatient PT Equipment Recommended: Rolling walker History Felicia Seals is 69 y.o. female admitted 01/19/2025 for work-up of Primary osteoarthritis of one knee, right. Problem List Active Hospital Problems Diagnosis Date Noted Primary osteoarthritis of one knee, right 01/11/2025 Procedures 01/19/2025 Procedure(s): ARTHROPLASTY, KNEE, TOTAL Past Medical History Patient has a past medical history of Adverse effect of anesthesia, Anxiety, Arthritis, Fatty liver, High cholesterol, Hypertension (2009), Hypothyroidism, Obesity (2013), Syncope, and Thyroid disorder. Past Surgical History Patient has a past surgical history that includes Hand surgery (Left, 2001); Hysterectomy (N/A, 2003); Foot surgery (Left, 2015); Cholecystectomy (2002); Joint replacement (Left, 2013); Wrist surgery(Left, 2001); Colonoscopy; and Other surgical history. Precautions Right Lower Extremity Weight Bearing Status: Weight Bearing as Tolerated Medical Precautions: Fall precautions Subjective Patient agreeable to participate; states she feels better than I expected Participants in Care Family/Caregiver Present: Yes Family/Caregiver: Spouse Card Runner: Not Applicable Presentation Oxygen Therapy: None (Room air) Lines and Tubes: Intravenous access Pre-Session: Head of bed elevated, Supine Pre-Session Comments: RN and pt consent Post-Session: Supine, Call light in reach, SCDs applied, Chair alarm, Sitting in chair, RN notified Post-Session Comments: immediate needs met Home Living/Set-up Lives With: Spouse Home Type: House Home Adaptive Equipment: Cane Home Layout: One level Bathroom: Tub/Shower: Tub/Shower combo Bathroom: Toilet: Standard Prior Level of Function Receives Help From: No assist required prior to admission Level of Mobility: Ambulatory- community Mobility [place]: Independent gait without device History of Falls: No ADL Performance: Independent Patient/Family Goals full recovery and return home Objective Pain 06/14 Delirium Screening RASS: Alert and calm Confusion Assessment Method-ICU (CAM-ICU/PCAM-ICU) Feature 3: Altered Level of Consciousness: Negative Cognition Overall Cognitive Status: Within Functional Limits Arousal/Alertness: Appropriate responses to stimuli Mood/Behavior: Alert Orientation Level: Oriented X4 Single Step Commands: Consistently Multi-Step Commands: Consistently Method of Communication: Verbal Right Upper Extremity Examination RUE Assessment: Within Functional Limits Manual Muscle Testing - RUE: Within functional limits Left Upper Extremity Examination LUE ROM Assessment LUE Assessment: Within Functional Limits Manual Muscle Testing - LUE Manual Muscle Testing - LUE: Within functional limits Right Lower Extremity Examination RLE ROM Assessment RLE Assessment: Exceptions to WFL (decreased related to pain) Manual Muscle Testing - RLE Manual Muscle Testing - RLE: (not tested) Left Lower Extremity Examination LLE Assessment: Within Functional Limits Manual Muscle Testing: Within functional limits Bed Mobility Bed Mobility Exam: Supine to Sit Level of [place]: Contact guard Physical/Nonphysical Assist: Supervision, Verbal Cues Assistive Device: Bed rails Transfers Transfer Exam: Sit to stand Level of [place]: Contact guard Physical/Nonphysical Assist: Supervision, Verbal Cues, Set-up required Assistive Device: Walker, rolling Transfer Exam: Stand to Sit Level of [place]: Contact guard Physical/Nonphysical Assist: Supervision, Set-up required, Verbal Cues Assistive Device: Walker, rolling Balance Static Sitting Balance Static Sitting-Balance Support: No upper extremity support, Feet supported Static Sitting-Level of Assistance: Supervision Dynamic Sitting Balance Dynamic Sitting-Balance Support: No upper extremity support, Feet supported Dynamic Sitting-Balance: Anterior/Posterior weight shifts, Lateral weight shifts Level of Assistance: Standby assisst Static Standing Balance Static Standing-Balance Support: Right upper extremity support, Left upper extremity support Static Standing-Level of Assistance: Standby assist Dynamic Standing Balance Dynamic Standing-Balance Support: Right upper extremity support, Left upper extremity support Dynamic Standing-Balance: Anterior/Posterior weight shifts, Lateral weight shifts Dynamic Standing Level of Assistance: Contact guard Gait Training (10 minutes) Device: Rolling walker Apparatus: None Assistance: Contact guard assist Distance: 25 ft Gait Analysis: antalgic pattern with decreased R stance time Gait Training Interventions: cues for upright posture, forward gaze and initial R heel strike Therapeutic Exercise (7 minutes) Access Code: [email or web address] URL: [email or web address] Date: 01/19/2025 Prepared by: Selena Rider Program Notes Total Knee Replacement Exercises - Phase 1 (Days 1-7) Ankle Pumps - 3 x daily - 20 reps - 3 hold - Phase 1 (Days 1- 7) Knee Push Downs - 3 x daily - 20 reps - 3 hold - Phase 1 (Days 1-7) Buttocks Squeeze - 3 x daily - 20 reps - 3 hold - Phase I Supine Heel Slide Days 1-7 - 3 x daily -1 sets - 20 reps - Phase 1 (Days 1-7) Short Arc Quad - 2 x daily - 20 reps - 3 hold - Straight Leg Raise - 2 x daily - 20 reps - 3 hold - Phase 1 (Days 1-7) Hip abduction/Adduction - 2 x daily - 20 reps - 3 hold - Phase 1 ( Days 1-7) Calf Stretch with Towel - 3 x daily - 4 reps - 30 hold - Phase 1 Day 1-7 Towel Prop - 3 x daily - 15-30 minutes - Phase 1 (Days 1-7) Seated Knee Flexion - 3 x daily - 20 reps - 3 hold - Phase 1 (Days 1-7) Long Arc Quad - 2 x daily - 20 reps - 3 hold - Phase 2 Days 8-14 Towel Prop with Weight - 3 x daily - 10 reps - 3 hold - 2-5 lbs weight on knee - Phase 2 ( Days8-14) Prone Knee Flexion - 3 x daily - 20 reps - 3 hold - Phase 2 ( Days 8-14) Knee Flexion with Overpressure - 3 x daily - 20 reps - 3 hold - Phase 2 ( Days 8-14) Standing Marching - 3 x daily - 10 reps - 3 hold - Phase 2 ( Days 8-14) Hip Abduction - 3 x daily - 10 reps - 3 hold - Phase 2 ( Days 8-14) Standing Hip Flexion - 3 x daily - 10 reps - 3 hold - Phase 2 ( Days 8-14) Hip Extension - 3 x daily - 10 reps - 3 hold - Phase 2 (Days 8-14) Gastroc Stretch - 3 x daily - 4 reps - 30 hold - Phase 2 (Days 8-14) Stretching: Hamstring Stretch - 3 x daily - 4 reps - 30 hold - Phase 3 ( Days 15-28)Wall Slide - 3 x daily - 20 reps - Phase 3 ( Days 15-28) Single Leg Step-Up - 3 x daily - 20 reps -Phase 3( Days 15-28) Step Down - 3 x daily - 10 reps - Phase 3 ( Days 15-28) Bilateral Heel Raises - 3 x daily - 10 reps - Phase 3 (Days 15-28) Standing Toe Raises - 3 x daily - 20 reps - Phase 3 (Days 15-) Balance: Unilateral (Single Leg Stance) - 3 x daily - 4 reps - 30 hold - Phase 3 ( Days 15-28) Side Step - 3 x daily - 4 reps Patient Education - Total Knee Replacement Instructions Patient participated in therapeutic exercise consisting of glute sets, quad sets and ankle pumps x 10 reps each, to be completed hourly on day of surgery. Reviewed additional Phase 1 exercises with pt to begin tomorrow including: heel slides, calf stretch, hip abduction, SAQ, heel props, SLR. Education provided on importance of performing frequently to prevent DVT, improve muscle function, improve outcomes, and functional relationship to surgical procedure. Written instruction provided. Standardized Assessments Standardized Assessments Standardized Assessments: [facility] 6-Clicks Mobility Assessment [facility] 6-Clicks Mobility Assessment Difficulty patient has turning over in bed (including adjusting bedclothes, sheets, and blankets)?:None Difficulty patient has sitting down on and standing up from a chair with arms (wheelchair, bedside commode, etc.)?: A little Difficulty patient has moving from lying on back to sitting on the side of the bed?: A little How much help does the patient need moving to and from a bed to a chair (including a wheelchair)?: A little How much help does the patient need to walk in hospital room?: A little How much help does the patient need climbing 3-5 steps with a railing?: A lot [facility] 6-Clicks Mobility Assessment Total : 18 Assessment Patient tolerated treatment without adverse events today, required skilled intervention to guide appropriate performance of activities with cuing, demos and feedback provided as needed. Skilled time required for line/tube management and room setup to promote safe environment for treatment. Pt educated on interventions, relation to condition, and relevance to improving function and achieving goals. Will benefit from continued skilled inpatient PT services. Impairments: Impaired gait dynamics/performance, Impaired functional mobility/transfers, Pain, Decreased range of motion, Decreased strength Activity Limitations: Inability to ambulate independently, Inability to ambulate community distances, Inability to transfer independently, Inability to complete ADLs independently Participation Restrictions: Self-care, Community leisure, Home management Activity Tolerance: Tolerates 10 - 20 min activity with multiple rests Evaluation/Treatment Tolerance: Patient limited by pain Diagnosis: impaired functional mobility related to R TKA Rehab Potential: Good, to achieve stated therapy goals Barriers to Discharge: Comorbidities Eval Complexity History Profile: No personal factors and/or comorbidities Clinical Presentation: Stable and/or uncomplicated characteristics Clinical Decision Making: Low complexity PT Recommendations Discharge Destination: Home with assistance, Outpatient PT Discharge Equipment: Rolling walker Plan Planned PT Interventions Gait training, Transfer training, Strengthening, ROM, Functional Mobility PT Frequency Twice daily PT Duration 2 weeks Goals PT GOAL DETAILS Time Frame PT Goal 1: Patient will perform sit to/from stand transfers with supervision and safe technique 2 weeks PT Goal 2: Patient will ambulate x 150 ft with RW and supervision 2 weeks PT Goal 3: Patient will navigate 3 stairs with bilateral hand rails with SBA 2 weeks Written by Selena Rider on 01/19/25 at 4:06 PM. * Care Plan - Augustin Salazar RN - 01/19/2025 3:43 PM EDT Problem: Adult Inpatient Plan of Care Goal: Plan of Care Review Outcome: Ongoing, Progressing Flowsheets (Taken 01/19/2025 1541) Progress: no change Plan of Care Reviewed With: patient Goal: Patient-Specific Goal (Individualized) 01/19/2025 1541 by Augustin Salazar RN Flowsheets (Taken 01/19/2025 1534) Patient/Family-Specific Goals (Include Timeframe): Patient will remain free from harm throughout shift Individualized Care Needs: Patient safety Anxieties, Fears or Concerns: None expressed 01/19/2025 154 by Augustin Salazar RN Outcome: Ongoing, Progressing Goal: Absence of Hospital-Acquired Illness or Injury Outcome: Ongoing, Progressing Intervention: Identify and Manage Fall Risk Flowsheets (Taken 01/19/2025 1541) Safety Promotion/Fall Prevention: safety round/check completed room organization consistent nonskid shoes/slippers when out of bed Intervention: Prevent Skin Injury Flowsheets (Taken 01/19/2025 1534) Body Position: supine Skin Protection: protective footwear used Intervention: Prevent and Manage VTE (Venous Thromboembolism) Risk Flowsheets (Taken 01/19/2025 1534) VTE Prevention/Management: bilateral lower extremity SCDs (sequential compression devices) on Intervention: Prevent Infection Flowsheets (Taken 01/19/2025 1541) Infection Prevention: hand hygiene promoted Goal: Optimal Comfort and Wellbeing Outcome: Ongoing, Progressing Intervention: Monitor Pain and Promote Comfort Flowsheets (Taken 01/19/2025 1534) Pain Management Interventions: pain management plan reviewed with patient/caregiver Intervention: Provide Person-Centered Care Flowsheets (Taken 01/19/2025 1534) Trust Relationship/Rapport: thoughts/feelings acknowledged empathic listening provided choices provided care explained questions encouraged Problem: Fall Injury Risk Goal: Absence of Fall and Fall-Related Injury Outcome: Ongoing, Progressing Intervention: Identify and Manage Contributors Flowsheets (Taken 01/19/2025 1534) Self-Care Promotion: BADL personal objects within reach Intervention: Promote Injury-Free Environment Flowsheets (Taken 01/19/2025 1541) Safety Promotion/Fall Prevention: safety round/check completed room organization consistent nonskid shoes/slippers when out of bed * Perioperative Nursing Note - Nanda Villatoro RN - 01/19/2025 1:51 PM EDT Pt appears to have blood coming from chinedu wrap. Norma [facility] notified. To come assess drainage. Will continue to monitor. * [facility] - Nanda Villatoro RN - 01/19/2025 12:18 PM EDT Images from the original note were not included. [id number] Preventing Deep Vein Thrombosis After Surgery In the days and weeks after surgery, you have a higher chance of developing a deep vein thrombosis (DVT). This is a condition in which a blood clot (thrombus) forms in a deep vein. They are most common in the leg. But a DVT may form in an arm or another deep vein in the body. A piece of the clot, called an embolus, can separate from the thrombus and travel to the lungs. A blood clot in the lungs is called a pulmonary embolus (PE). This can cut off the flow of blood to part or all of the lungs. It's a medical emergency and may cause . Doctors use the term venous thromboembolism (VTE) to describe both DVT and PE. They use the term VTE because the two conditions are very closely related and their prevention and treatment are similar. Prevention in the hospital or other facility Your doctor will usually prescribe one or more of the following to prevent blood clots: ? Blood-thinner (anticoagulant). This medicine prevents blood clots. You take it by mouth, by injection, or through an I.V. (intravenous). Commonly used anticoagulants include warfarin and heparin. Newer anticoagulants may also be used, including rivaroxaban, apixaban, dabigatran, and enoxaparin. Sometimes the doctor may not give you an anticoagulant medicine. It's important that they discuss therisks and benefits with you. ? Compression stockings. These elastic stockings fit tightly around your legs. They help keep bloodflowing toward your heart by the pressure they apply. They prevent blood from pooling and forming blood clots. When you first put them on, the stockings may be uncomfortable. But after a while, you should get used to them. ? Exercises. Simple exercises while you are resting in bed or sitting in a chair can help prevent blood clots. Move your feet in a [place] or up and down. Do this 10 times an hour to improve circulation. ? Getting out of bed and walking (ambulation). After surgery, a nurse will help you out of bed as soon as you are able. Moving around improves circulation and helps prevent blood clots. ? Sequential compression device (SCD) or intermittent pneumatic compression (IPC). Plastic sleeves are wrapped around your legs and connected to a pump that inflates and deflates the sleeves. This applies gentle pressure to promote blood flow in the legs and prevent blood clots. These should be worn when you lie in bed or sit in a chair. Prevention at home Ankle exercises can help keep blood flowing in the veins. Deep vein thrombosis can happen even after you go home. Follow all instructions from your doctor. The following are some general guidelines about DVT prevention: ? Blood-thinner medicine. If a blood thinner was prescribed, make sure you follow all directions about taking it. Be sure you know what foods and medicines may interact. And ask your doctor what to do if you forget to take a dose. ? Compression stockings. Your doctor will tell you how often to wear and remove the stockings. Follow all instructions closely. Each time you remove your stockings, check your legs and feet for red areas or sores. If you see any changes, call your doctor right away. ? Returning to activity. Follow all instructions about returning to activities. Be as active as youcan. This improves blood flow and helps prevent a clot from forming. When in bed or in a chair, continue with the ankle exercises you did in the hospital. ? Sequential compression device (SCD) or intermittent pneumatic compression (IPC). In some cases, this device may be recommended at home. If you are using this device at home, make sure you closely follow all instructions from your doctor. You will be instructed on how often and for how long to usethe device. Remove the sleeves if you are up and walking. When to call your doctor You may have symptoms of a blood clot. Or you may have signs of bleeding from medicines to prevent clots. Contact your doctor right away if you have: ? Pain, swelling, or redness in the leg, arm, or other area. ? Blood in your urine or stool. ? Very dark or tar-like stool. ? Vomiting with blood. ? Bleeding from the nose. ? Bleeding from the gums. ? A cut that won't stop bleeding. ? Bleeding from the vagina. Call 911 Call 911 if you have: ? Chest pain. ? Shortness of breath. ? A fast heartbeat. ? Excessive sweating. ? Fainting. ? Coughing (may cough up blood). ? Heavy or uncontrolled bleeding. Last Reviewed Date: 2024 00:00:00 ?? [id number] [employer]. All rights reserved. This information is not intended as a substitute for professional medical care. Always follow your healthcare professional's instructions. * [facility] - Nanda Villatoro RN - 01/19/2025 12:18 PM EDT Images from the original note were not included. 31248 Preventing a Surgical Site Infection A risk of any surgery is an infection at the surgical site. The surgical site is a cut the surgeon makes in the skin to do the surgery. Surgical site infections can range in type. It may be a minor skin infection. Or it may be severe and include tissue under the skin or other organs. In some cases,a severe infection can cause . The information below tells you: ? About surgical site infections. ? What hospitals do to prevent them. ? How they?re treated if they do occur. ? What you can do to prevent an infection. Hand washing reduces the risk of infection. What causes a surgical site infection? Germs are everywhere. They?re on your skin, in the air, and on things you touch. Many germs are good. Some are harmful. Surgical site infections occur when harmful germs enter your body through the incision in your skin. Some infections are caused by germs that are in the air or on objects. But most are caused by germs found on and in your own body. Who is at risk for a surgical site infection? Anyone can have a surgical site infection. Your risk is higher if you: ? Are an older adult. ? Have a weak immune system. ? Have other health conditions such as diabetes. ? Take certain medicines, such as steroids. ? Are a smoker. ? Have certain types of surgery, such as abdominal surgery. ? Have poor nutrition. ? Are very overweight. ? Have a surgery that lasts longer than 2 hours. What are the symptoms of a surgical site infection? An infection often shows up as skin redness, pain, and swelling around the incision that gets worse. Later, a cloudy or greenish-yellow fluid may come from the incision. The fluid may smell bad. The incision may pull apart or open up. You are likely to have a fever and may feel very ill. Symptoms can appear at any time. They may happen from hours to weeks after surgery. Implants such as an artificial knee or hip can become infected at any time after the surgery. How is a surgical site infection treated? ? A surgical site infection is treated with antibiotics. The type of medicine you get will depend on what may be causing the infection. Most serious wound infections need wound care. In some cases, surgery may be needed on the infected wound. ? An infected skin wound may be reopened and cleaned. A deep wound may need to be packed with gauze. The gauze is changed often until the wound starts to heal from the inside out. Your health care provider will decide the best way to treat your infection. ? If an infection occurs where an implant is placed, the implant may be removed. ? If you have an infection deeper in your body, you may need surgery to treat it. What hospitals do to prevent surgical site infections Many hospitals take these steps to help prevent surgical site infections: ? Handwashing. Before the surgery, your surgeon and all surgery staff scrub their hands and arms with an antiseptic soap. ? Clean skin. The site where your incision is made is carefully cleaned with an antiseptic solution. ? Sterile clothing and drapes. The surgical team wears medical uniforms. These are known as scrub suits. They wear long-sleeved surgical gowns, masks, caps, shoe covers, and sterile gloves. Your bodyis fully covered with a large sterile sheet (sterile drape). There is an opening in the sheet wherethe incision is made. ? Clean air. Operating rooms have special air filters. They use positive pressure airflow to prevent unfiltered air from entering the room. ? Careful use of antibiotics. Antibiotics are given no more than 60 minutes before the incision is made. They are generally stopped within 24 hours after surgery. This depends on the type of surgery.This helps kill germs but prevents problems that can occur when antibiotics are taken longer. ? Controlled blood sugar levels. Your blood sugar level may rise. This can be because of the stressof the surgery. Your blood sugar level is watched closely to make sure it stays within a normal range. High blood sugar delays wound healing. This increases the risk of infection. ? Controlled body temperature. A nzzap-fjkk-stjpfx temperature during or after surgery prevents oxygen from reaching the wound. This makes it harder for your body to fight infection. Hospitals may warm I.V. fluids, and provide warm-air blankets. Your temperature is watched throughout the surgery. ? Safe hair removal. Any hair that must be removed is clipped right before the incision, not shavedwith a razor. This prevents tiny nicks and cuts where germs can enter. ? Wound care. After surgery, a closed wound is covered with a sterile dressing for 1 to 2 days. Open wounds are packed with sterile gauze and covered with a sterile dressing. What you can do to prevent a surgical site infection ? Ask questions. Learn what your hospital is doing to prevent infection. ? If instructed, shower or bathe with plain soap the night before and the day of your surgery. Follow all instructions you're given. You may be asked to use a special cleanser that you don?t rinse off. ? If you smoke, stop as long as possible before and after the surgery. Ask your provider about waysto quit. ? Take antibiotics only when your provider tells you to. Using antibiotics when they?re not needed can create germs that are harder to kill. Finish the entire prescription of your antibiotics even ifyou feel better. ? Ask health care workers to clean their hands with plain soap and water or with an alcohol-based hand typesetter perforator operator before and after caring for you. Don?t be afraid to remind them. ? After surgery, eat healthy foods. Care for your incision as directed by your health care team. When to contact your doctor Contact your provider or seek medical care right away if: ? The pain at the surgical site gets worse. ? A red streak, worse redness, or puffiness appears near the incision. ? Yellowish, cloudy, or bad-smelling fluid leaks from the incision. ? Your stitches dissolve before the wound heals. ? You have a fever of 100.4?? F ( 38??C ) or higher, or as advised by your provider. ? You have a tired feeling that doesn?t go away. Last Reviewed Date: 2024 00:00:00 ?? [id number] [employer]. All rights reserved. This information is not intended as a substitute for professional medical care. Always follow your healthcare professional's instructions. * [facility] - Nanda Villatoro RN - 01/19/2025 12:18 PM EDT Images from the original note were not included. 93 Polar Care Ice Therapy Your doctor has prescribed an ice therapy machine to help lower your pain and swelling after your surgery. The Polar Care machine consists of a pad that you place on your body connected to a special ?cooler? of ice water. When you turn it on, ice cold water runs non-stop from the machine through tubes in the pad and numbs the area under the pad. The Polar Care pad gets very cold and can cause serious damage to your skin and nerves if you don?tuse it correctly. Follow these instructions carefully ? Always place a towel or T-shirt between the pad and your skin. Don?t let any part of the pad touch your bare skin. ? Turn the machine on for 1 hour and then off for 1 hour whenever you are awake. ? Don?t use the machine while you sleep. ? Look at the skin that is under the pad every hour. If it is in a spot you can?t easily see, have someone else check it for you. ? If the part of your body that you are using ice on is still numb from surgery, you need to be very careful as you won?t be able to feel pain or burning from the ice. ? Tell your doctor or nurse if you have circulation problems or diabetes or if you have had frostbite in the past. ? To save time and use less ice, the cooler with fit 4 standard water bottles (16.9 ounces each). Freeze the water bottles and place them in the cooler. Then fill the cooler with water to the fill line marked inside the cooler. This will keep the water cold for up to 2 days. Freeze 4 more bottles to have them ready to rotate when needed. Stop using the machine immediately and call your doctor if you have any of the following ? Pain or swelling that gets worse ? Blisters or welts ? Increased redness or your skin changes color ? Burning feeling * [facility] - Nanda Villatoro, RN - 01/19/2025 12:15 PM EDT Images from the original note were not included. 01512 After Knee Replacement: Using a Walker Following your healthcare provider's instructions after knee replacement helps with early recovery.Once you can stand, you?ll start using a walker. Use the walker for moving around as long as the provider asks you to. This is generally four to six weeks but may vary from person to person. There are three main types of walkers: ? Standard without wheels ? 2-wheeled (front) rolling walker ? 4-wheeled rolling walker Your physical therapist or another member of your healthcare team will help you select the best walker for you. As you become better at using the walker and your knee strengthens, you?ll be taught more advanced skills. For instance, after your physical or occupational therapist or match maker has shown you the correct procedures, you may practice stepping on and off a curb as directed. Your first steps ? Push your walker a few inches in front of you. ? Keeping your back straight, lean on the walker so it supports your weight. Step into the center of the walker with your operated leg, being careful not to twist your leg. Then, step with your otherleg. ? As you get more comfortable using the walker, you may be able to move it as you step. Walking up a curb ? Move your feet and the walker as close to the curb as possible. ? Put your weight on both your legs, then lift the walker onto the curb. ? Step up with the un-operated leg. Using the walker to support your weight, bring up the operated leg. Walking down a curb ? Move your feet and the walker as close to the edge of the curb as you safely can. ? Lower the walker onto the ground, keeping its back legs against the curb. ? Using the walker to support your weight, lower the operated leg. Then step down with the other leg. Last Reviewed Date: 2023 00:00:00 ?? [id number] [employer]. All rights reserved. This information is not intended as a substitute for professional medical care. Always follow your healthcare professional's instructions. * [facility] N[facility] - 01/19/2025 12:15 PM EDT Images from the original note were not included. 98773 Using an Incentive Spirometer An incentive spirometer is a handheld device that helps you do deep breathing exercises after surgery. It also helps lower the risk of breathing problems if you have a lung disease or condition. These exercises expand your lungs, aid in circulation, and may help prevent pneumonia. Deep breathing exercises also help you breathe better and improve lung function by: ? Keeping your lungs clear. ? Making your breathing muscles stronger. ? Helping prevent respiratory complications or problems. The incentive spirometer gives you a way to take an active part in your recovery. A nurse or respiratory therapist will teach you breathing exercises. To do these exercises, you will breathe in through your mouth and not your nose. The incentive spirometer only works correctly if you breathe in through your mouth. Deep breathing expands the lungs, aids circulation, and helps prevent pneumonia. Your health care provider or their staff will tell you how to use the device, your targeted volume(s), and provide other helpful tips to prevent complications (such as pain, dizziness, feeling lightheaded) when blowing in the incentive spirometer. Steps to clear lungs Step 1. Exhale normally. Then, inhale normally. ? Relax and breathe out. Step 2. Place your lips tightly around the mouthpiece. ? Make sure the device is upright and not tilted. ? Sit up and breathe out (exhale) fully. ? Tightly seal your lips around the mouthpiece. Step 3. Inhale as much air as you can through the mouthpiece. Don't breathe through your nose. ? Breathe in (inhale) slowly and deeply. ? Hold your breath long enough to keep the balls, piston, or disk raised for at least 3 to 5 seconds, or as instructed by your health care provider. ? Exhale slowly to allow the balls, piston, or disk to fall before repeating. Note: Some spirometers have an indicator to let you know that you are breathing in too fast. If theindicator goes off, breathe in more slowly. Step 4. Repeat the exercise regularly. ? Do sets of 10 exercises every hour while you're awake, or as instructed by your health care provider. Don't do more than 30 breaths in each set. ? If you were taught deep breathing and coughing exercises, do them regularly as instructed by yourprovider, nurse, or respiratory therapist. Follow-up care Make a follow-up appointment as directed by your health care provider. Also, follow up with your provider as advised if your symptoms don't improve or continue to get worse. When to contact your doctor Contact your health care provider right away if you have: ? A fever 100.4?? (38??C) or higher, or as advised by your provider. ? Brownish, bloody, or smelly sputum (phlegm that you cough up). Call 911 Call 911 if any of these occur: ? Shortness of breath that doesn't get better after taking your medicine ? Cool, moist, pale, or blue skin ? Trouble breathing or swallowing, wheezing ? Fainting or loss of consciousness ? Feeling of dizziness or weakness, or a sudden drop in blood pressure ? Feeling very ill ? Lightheadedness ? Chest pain or rapid heart rate Last Reviewed Date: 2024 00:00:00 ?? [id number] [employer]. All rights reserved. This information is not intended as a substitute for professional medical care. Always follow your healthcare professional's instructions. * [facility] - Nanda Villatoro RN - 01/19/2025 12:15 PM EDT Images from the original note were not included. 213 After Total Knee Replacement After your knee replacement, you will need to follow these instructions to avoid complications. Follow these instructions from the time you go home until your doctor says you can stop. Incision care ? If your incision has sutures or vandana, do not shower until after you return to the clinic. ? If your incision is closed with Dermabond Prineo and liquid skin adhesive, you may shower 24 hours after all drainage stops. Leave it in place until your follow-up appointment. ? Sit on a shower chair or tub bench when you shower to keep from falling. Carefully wash around your incision with soap and water. Rinse the incision well. Then gently pat it dry. ? Do not rub the incision or apply creams or lotions. ? If your incision is not draining, you do not need a dressing over it. You may cover your incisionwith a light, dry bandage if you want. ? Check your incision daily for redness, swelling, tenderness or drainage. Swelling ? You will go home with a Polar Pack (ice machine). This will help reduce swelling in your knee anddecrease your pain. ? Use the Polar Pack for 20 minutes 3 times a day after doing your exercises and as needed to decrease swelling and pain. ? Do not place the Polar Pack directly on the skin, You must have clothing, a washcloth, or a pillowcase between the Polar Pack and your skin. ? To refill the Polar Pack, open the cooler lid and add ice and water as directed before each use. ? An CHINEDU bandage will be on your leg after surgery. This can help to prevent swelling and is helpful to use for the first 1-2 weeks after surgery. Activity and exercise ? Follow your doctor?s orders for how much weight to put on the affected leg. ? Walk often and do the exercises physical therapy has taught you three times a day. ? Gradually increase your activity every day. ? Walk up and down stairs with support. Use the railing if possible. Try one step at a time - good knee up, bad knee down. ? Use a cane, crutches, a walker or handrails until your balance, flexibility and strength improve.And remember to ask for help from others when you need it. ? Don?t engage in any jarring sports or activities such as jogging, tennis, or basketball until youhave discussed this with your doctor. Sitting and lying down ? Raise your leg when sitting to help decrease swelling. ? Put a pillow under your ankle, not your knee. ? Sit in chairs with arms. The arms make it easier for you to stand up or sit down. ? Do not sit for more than 30 to 45 minutes at a time. ? Nap if you are tired, but don?t stay in bed all day. ? It is OK to sleep on your stomach or side. Use pillows between your legs when sleeping on your side. Be sure to change the position of your operated leg during the night. Bathroom safety ? Use nonslip bath mats, grab bars and a shower chair in your bathroom. Riding and driving ? Sit on a firm cushion when you ride in a car. ? Don?t drive while you are taking narcotic pain medicine. ? Don?t drive until your doctor says it?s ok. Most people can start driving two to four weeks aftersurgery. Managing pain ? You should expect to have some pain as you heal. This pain may last weeks or months. ? Take pain medicine as directed. Do not skip or add doses. ? Take them at least 20 minutes before doing activities. Take them 30 to 60 minutes before exerciseor physical therapy. ? Do not take other pain medicines unless your doctor approves. This includes axfw-oas-afvrgid medicines like aspirin, ibuprofen and Tylenol. ? As you heal, you will need less pain medicine. Try taking one pill instead of two. Or take them two times a day instead of three times a day. ? Raise your leg. Rest your leg on pillows. The knee should be higher than your hip. Do this when you are in bed or in a chair to help reduce swelling. Do not put a pillow under your knee. This couldcause a blood clot or limit how much your knee bends as you heal. ? Get up and move. This may help relieve discomfort at night. ? You can also try listening to music, relaxing, distracting your mind or repositioning your leg. Preventing infection ? Avoid infection by washing your hands often. ? Call your surgeon right away if you think you have an infection in your operated knee. Signs include a fever, redness, increased pain, or an incision that leaks white, green or yellow fluid. ? Avoid soaking your incision in water (no hot tubs, bathtubs, swimming pools) until your doctor says it?s ok which is typically around 4 weeks after surgery. ? Wait 3 weeks after your surgery to shave your legs. ? Wait 3 weeks after your surgery to get a flu or pneumonia vaccine. ? Wait 2 months after your surgery for any routine dental appointments. When scheduling an appointment, be sure to tell your dentist that you have had a knee replacement. After knee replacement, yourdentist may prescribe antibiotics for dental procedures. ? Call your family doctor right away if you think you might have an infection elsewhere. Preventing blood clots ? Take blood-thinning medicine as directed to prevent blood clots. ? The nurses staff will teach you how to give the enoxaparin injection, if needed. ? Do not miss doses of blood thinning medicine. ? Use caution when taking long car trips or traveling by airplane for the first 6 weeks after surgery. If you must take a long car trip, stop every hour and walk for 10-15 minutes. Your doctor may recommend a blood thinner if you are flying within 6 weeks of surgery. Diet ? It is normal to have a decreased appetite after surgery. Drink a nutritional supplement such as Boost or [place] Instant Breakfast until your appetite returns to normal. ? Maintain a healthy weight. Added body weight puts stress on the knee. Get help to lose any extra pounds. Preventing constipation ? Narcotic pain medicines can cause constipation. ? Take stool softener as prescribed. ? Drink plenty of fluids, especially water. ? Increase fiber in your diet. Fruits, vegetables, beans, nuts and whole grains have fiber in them. ? Call your doctor if your bowels do not move in the next few days after surgery. Sleep ? Some patients have a hard time sleeping after surgery. ? If you have problems sleeping, take [id number] diphenhydramine (Benadryl) or melatonin. ? If you still have problems sleeping, call the clinic. You may need a prescription for a sleep aid. Follow-up care ? Your orthopaedic surgeon will schedule follow-up exams to make sure that your knee is healing correctly. Use this time to ask any questions you have about your recovery or activities. ? If you need a prescription refill before your next appointment, call [phone]. Call 2 business days before you run out. ? To check joint stability over time, you may have X-rays every five years. When should I call the doctor? Call 611 right away if you have any of the following: ? Chest pain ? Shortness of breath or trouble breathing Call your doctor if you have any of the following: ? An increase in knee pain ? Pain or swelling in a calf or leg ? Unusual redness, heat or drainage at the incision site ? Fever of 101.5 degrees F or higher or shaking chills ? Increased swelling in your leg * Anesthesia PACU Signout - Quynh Keller DO - 01/19/2025 11:27 AM EDT Patient: Felicia Seals Anesthesia Type: general Vitals Value Taken Time BP 127/51 01/19/25 11:15 Temp 36.3 ??C (97.3 ??F) 01/19/25 10:55 Pulse 76 01/19/25 11:17 Resp 11 01/19/25 11:17 SpO2 96 % 01/19/25 11:17 Vitals shown include unfiled device data. Anesthesia PACU Signout Patient location during evaluation: PACU Patient participation: complete - patient participated Level of consciousness: baseline and awake Pain management: adequate (pain score 0-3) Airway patency: natural airway Hydration status: acceptable PONV: none Cardiovascular status: acceptable and hemodynamically stable Respiratory status: acceptable, spontaneous ventilation, unassisted, nonlabored ventilation and room air Discharge Disposition: home Cosigned by Nhan Meadows MD at 01/20/2025 3:03 PM EDT Associated attestation - Nhan Meadows MD - 01/20/2025 3:03 PM EDT I saw and evaluated the patient with the resident/fellow. I discussed the case with the resident/fellow and agree with the findings and plan as documented. * Op Note - Ben August MD - 01/19/2025 9:52 AM EDT Operative Note Date: 01/19/25 Location: [facility] OR Name: Felicia Seals, : 1955, Diagnoses: Pre-op Diagnosis Primary osteoarthritis of one knee, right Morbid obesity Post-op Diagnosis Primary osteoarthritis of one knee, right Morbid obesity Procedure(s): Right total knee Please note this surgery is being listed with a 22 modifier due to the patient morbid obesity as this caused the surgery to take at least 30% longer than that for a standard sized individual Attending Surgeon(s): * Ben August - Primary Safety Teacher(s): * No surgeons found with a matching role * Anesthesia: Choice ASA: II Blood Administration: Blood Product Administration History None Estimated Blood Loss: Minimal Drains: Closed/Suction Drain Right Knee Accordion (Active) Implants Type Name Action Serial No. Cement CEMENT WITH TOBRAMYCIN - [id number] Implanted Pin CHG PIN STERILE HEADLESS 04/14 - [id number] Used, Not Implanted Patella CHG PATELLA GNS II RESURF 29MM - [id number] Implanted Knee CHG TIBIAL GNS II CMT SIZE 3 R - [id number] Implanted Knee CHG LGN XLPE DISHED ISRT SZ 3-4 11MM - [id number] Implanted Knee CHG FEMORAL LEGION CR OXIN SZ4 - [id number] Implanted Specimen: Findings: Indications: Felicia Seals is an 69 y.o. female who is having surgery for Primary osteoarthritis of one knee, right. Narrative: This pleasant patient has failed non operative management for their knee degenerative joint diseaseas such the risks benefits and alternatives of the surgical procedure were discussed with the patient preoperatively and they consented. These risks included but were not limited to bleeding, infection, damage to nerves and blood vessels, heart attack, , stroke, need for additional surgical procedure, DVT, PE, fracture, dislocation, or limb length discrepancy or continued pain. Patient signed written consent after voicing a specific understanding of these surgical risks and reviewing the consent form. The patient was met in the preop holding area, surgical limb was signed, and surgical consent was reviewed. They were then taken to the operating room induced under anesthesia, placed on the operating room table, surgical extremity was prepped draped normal sterile fashion. Surgical time-out was performed according to hospital policy and patient received intravenous antibiotics prior to incision. Anterior approach to the knee was utilized, carried down the subcutaneous tissues, and a mid vastusarthrotomy was performed. Deep retractors were placed and the knee was flexed to 90??. An intramedullary reamer was used to gain access to the femur and the tibia where an intramedullary guide neena was placed and a distal femoral osteotomy was made per the manufactures instructions . The knee was then sized to the appropriate size and the 4 way cutting block was introduced. The anterior, posterior, and chamfer cuts were made and the block was removed. Intramedullary guide neena was placed in the tibia and a proximal tibial osteotomy was made referencing the most deficient aspect of the medial tibial plateau as well as the lateral plateau. Tibial osteotomy was removed, posterior osteophytes were removed and the trial components were inserted. We then trialed the knee with the appropriate sizefemur and tibial components and the polyethylene insert for the patients stability. We had full flexion and extension from zero to 140 degrees, good patellar tracking in the femoral grove, stable medial/lateral endpoints at zero, 30, and 90 degrees of motion. As such, the femoral lugs were drilled.The tibia was floated into its rotation relative to the femur and tibial tuberacle and marked on the proximal tibia. The patella was then exposed, sized, and a osteotomy was made based on the patients [place] anatomy, wear, and size and the patella was prepared per the manufactures instructions. Trial components were removed and the tibia was sized and then prepared per the manufacturers instructions. All cut luna surfaces were irrigated and the final implants were cemented into place. We had the same range of motion and stability with the trialed polyethylene, so this was impacted once the cement was hard. The knee was then irrigated with normal saline and a dilute betadine irrigant, closed in surgical layers over a deep drain, sterile dressings were applied. At the end of the procedure all sponge and lap counts were appropriate. Complications: None; patient tolerated the procedure well. Submitted by: Ben August MD - 01/19/2025 * Progress Notes - Wilda Devi RN - 01/19/2025 9:15 AM EDT Case Management Adult Progress Note Felicia Seals 69 y.o. female CSN: [id number] Admission: 01/19/2025 6:30 AM Primary Problem: Primary osteoarthritis of one knee, right RW to be delivered to bedside today by [facility]. Wilda Devi RN * H&P - Ben Burger MD - 01/19/2025 6:46 AM EDT Chief Complaint: Right knee pain History of Present Illness: Felicia Seals is a 69 y.o. female presenting with above complaint and was evaluated and deemed a candidate for surgery based on history and physical exam previously. No interval change in medical history since clinic assessment Past Medical History: has a past medical history of Adverse effect of anesthesia, Anxiety, Arthritis, Fatty liver, High cholesterol, Hypertension (2009), Hypothyroidism, Obesity (2013), Syncope, and Thyroid disorder. Surgical History: has a past surgical history that includes Hand surgery (Left, 2001); Hysterectomy (N/A, 2003); Footsurgery (Left, 2016); Cholecystectomy (2002); Joint replacement (Left, 2014); Wrist surgery (Left, 2001); Colonoscopy; and Other surgical history. Family History: Family History[1] Social History: reports that she has never smoked. She has never been exposed to tobacco smoke. She has never used smokeless tobacco. She reports that she does not currently use alcohol. She reports that she does not use drugs. Allergies: Patient has no known allergies. Medications: Current Medications[2] Review of systems: negative other than above Physical exam: Last recorded vitals: There were no vitals taken for this visit. refer to nursing notes General: no apparent distress HEENT: speaks clearly, eyes open CV: perfused Respiratory: moves air well Ext: Right Motor: 5/5 TA/GSC/EHL/FHL Sensory: SILT DP/SP/Sural/Saph/Tib nerve dist. Vascular: cap refill <2sec, toes wwp Skin: intact Refer to anesthesiology H and P for other pertinent physical findings related to surgical preparedness. Assessment/Plan: Procedure(s) (LRB): ARTHROPLASTY, KNEE, TOTAL (Right) Patient is marked and consented for Right total knee arhtroplasty, NPO since midnight to OR with Dr. August 01/19/25 [1] Family History Problem Relation Name Age of Onset Cancer Father Zak Heart disease Father Zak Cancer Maternal Grandfather Wood Broken bones Mother 80 - 99 [2] No current facility-administered medications for this encounter. Cosigned by Ben August MD at 01/19/2025 7:37 AM EDT Associated attestation - Ben August MD - 01/19/2025 7:37 AM EDT I saw and evaluated the patient with the resident/fellow. I discussed the case with the resident/fellow and agree with the findings and plan as documented. * PAT Phone Note - Ruthann Zuniga RN - 01/13/2025 9:15 AM EDT HPI Felicia Seals is a 69 y.o. female who presents with Pre-op Diagnosis * Primary osteoarthritis of one knee, right [M17.11] now scheduled for ARTHROPLASTY, KNEE, TOTAL (Right). GXT from 12/2023 scanned into media Past Medical History[1] Family History[2] Social History[3] SURGICAL HISTORY: Surgical History[4] Allergies[5] MEDICATIONS: Current Medications[6] Ruthann Zuniga RN [1] Past Medical History: Diagnosis Date Adverse effect of anesthesia mother mean when she woke up Anxiety Arthritis Fatty liver High cholesterol Hypertension 2009 Hypothyroidism Obesity 2013 Syncope while on coreg--last time 12/2023 Thyroid disorder [2] Family History Problem Relation Name Age of Onset Cancer Father Zak Heart disease Father Zak Cancer Maternal Grandfather Wood Broken bones Mother 80 - 99 [3] Social History Tobacco Use Smoking status: Never Passive exposure: Never Smokeless tobacco: Never Vaping Use Vaping status: Never Used Substance Use Topics Alcohol use: Not Currently Comment: Alcoholic Drinks/day: Rarely consumes alcohol Drug use: Never [4] Past Surgical History: Procedure Laterality Date CHOLECYSTECTOMY 2002 COLONOSCOPY FOOT SURGERY Left 2016 Foot Surgery from [facility] HAND SURGERY Left 2002 Hand Surgery from [facility] HYSTERECTOMY N/A 2003 Hysterectomy from [facility] JOINT REPLACEMENT Left 2013 Left unicompartmental knee OTHER SURGICAL HISTORY place removed from lip WRIST SURGERY Left 2001 [5] No Known Allergies [6] No current facility-administered medications for this encounter. Current Outpatient Medications: Biotin-Vitamin C (HAIR SKIN NAILS GUMMIES PO), Take by mouth daily. cholecalciferol, Take 1 tablet by mouth daily. estradiol, 2 times a week. fluconazole, 1 time per week. ibuprofen, Take 1 tablet by mouth every 6 hours as needed for mild pain. levothyroxine, Take 1 tablet by mouth daily. losartan, 2 times a day. rosuvastatin, Take 1 tablet by mouth nightly. triamcinolone, as needed. biotin, Take 1 tablet by mouth daily. (Patient not taking: Reported on 01/13/2025) carvedilol, Crestor, Take 1 tablet (20 mg) by mouth every night. (Patient not taking: Reported on 01/11/2025) * Preprocedure Instructions - Ruthann Zuniga RN - 01/13/2025 9:11 AM EDT Home Medication Instructions Current Medications Medication Instructions Biotin-Vitamin C (HAIR SKIN NAILS GUMMIES PO) Hold 7 days before surgery cholecalciferol (Vitamin D3) 25 MCG (1000 UT) tablet Hold 7 days before surgery estradiol (Vagifem) 10 MCG tablet vaginal tablet Hold 30 days before surgery fluconazole (Diflucan) 150 MG tablet Take as prescribed ibuprofen 200 MG tablet Hold 7 days before surgery levothyroxine (Synthroid, Levoxyl) 137 MCG tablet Take morning of surgery losartan (Cozaar) 50 MG tablet Hold day of surgery rosuvastatin (Crestor) 20 MG tablet Take night before surgery triamcinolone (Kenalog) 0.1 % lotion Hold day of surgery General Preoperative Instructions You will be called the business day before surgery with your arrival time Your surgery is at [facility] located at [address] [place] [address] Please park in the parking garage and enter the building at Entrance A and check-in inside Do not eat any food after midnight the night before your surgey. Do not drink any coffee or tea butyou can have clear liquids up to 2 hours prior to arrival. Do not try to get all your hydration in 2 hours prior to your arrival. Start the day before surgery drinking more than you normally would. After midnight, you can have clear liquids: water, apple juice, Gatorade or Powerade up to 2 hours prior to arrival time No alcohol within 24 hours of surgery Do not smoke, vape or use any tobacco products after midnight the night before your surgery Arrive on time to avoid delays You MUST have a responsible adult available for transport to and from hospital If you spend the night in the hospital you are allowed to have one adult visitor spend the night inyour room You are allowed to have 2 adult visitors with you on the day of surgery Bring insurance card, photo ID, along with power of erisa attorney, guardianship or advanced directives if applicable Do not bring any valuables Hibiclens bathing instructions reviewed if applicable; if you do not receive Hibiclens you may buy Dial antibacterial soap and shower with it the night before your surgery and the morning of surgery Notify surgeon of fever, illness, any changes or if you decide not to have surgery Parking/Registration procedure explained You MUST have a responsible adult available for transport to and from hospital Visitation policy for the day of surgery reviewed Bring insurance card, photo ID, along with power of erisa attorney, guardianship or advanced directives if applicable Do not bring money, jewelry or other valuables Hibiclens bathing instructions reviewed if applicable Notify surgeon of fever, illness, any changes or if you decide not to have surgery Pediatric patients under 12 years of age (If applicable) No solid food or milk after midnight Formula 6 hours prior to arrival for surgery Breast milk 4 hours prior to arrival surgery Clear liquids 2 hours prior to arrival for surgery Diabetes Instructions (If applicable) Take diabetes medication as instructed You may have up to 4 ounces of apple juice 2 hours prior to arrival for surgery for low glucose documented in this encounter Plan of Treatment Upcoming Encounters Date Type Department Care Team (Late st Contact Info) Description 06/07/2025 9:40 AM EST Office Visit Medical Office Building [facility] [address] [facility], [address] [place] [address] Ben August MD [address] [place] [address] Scheduled Referrals Name Type Priority Associated Diagnoses Orde r Schedule Orthopaedic referral to Physical Therapy Outpatient Referral Routine Primary osteoarthritis of one knee, right 1 Occurrences starting 01/19/2025 until 07/23/2026 documented as of this encounter Goals Goal Patient Goal Type Associated Problems Recent Progress Patient-Stated? Author Autogenerat ed Goal Care Plan Autogenerated Problem No Rosario Woodward documented as of this encounter Procedures Procedure Name Priority Date/Time Associated Diagnosis Comments XR KNEE RIGHT 1 OR 2 VIEWS Routine 01/19/2025 11:19 AM EDT [place] TOTAL KNEE ARTHROPLASTY 01/19/2025 9:22 AM EDT Primary osteoarthritis of one knee, right Special Needs grace and nephew TKA Right documented in this encounter Results * XR Knee Right 1 or 2 Views (01/19/2025 11:19 AM EDT) Anatomical Region Laterality Modality Lower Extremities, Knee Right Digital Radiography Impressions 01/19/2025 11:58 AM EDT Expected postsurgical changes of total knee arthroplasty. CRITICAL RESULT: No. COMMUNICATION: Per this written report. By electronically signing this report, I, the attending physician, attest that I have personally reviewed the images/data for the above examination(s) and agree with the final edited report. Drafted by Enrique Duarte MD on 01/19/2025 11:30 AM Final report signed by Madhu Jalloh MD on 01/19/2025 11:58 AM Narrative 01/19/2025 11:58 AM EDT CLINICAL INDICATION: TKA TECHNIQUE: XR KNEE RIGHT 1 OR 2 VIEWS COMPARISON: Right knee radiograph 06/03/2023 FINDINGS: Interval total knee arthroplasty. Drain overlying the distal lateral femur. No acute fracture dislocation. Intra-articular gas and subcutaneous emphysema. Osseous mineralization the medial aspect of the thigh distally likely postsurgical. Moderate diffuse soft tissue swelling. Procedure Note Madhu Jalloh MD - 01/19/2025 CLINICAL INDICATION: TKA TECHNIQUE: XR KNEE RIGHT 1 OR 2 VIEWS COMPARISON: Right knee radiograph 06/03/2023 FINDINGS: Interval total knee arthroplasty. Drain overlying the distal lateralfemur. No acute fracture dislocation. Intra-articular gas and subcutaneousemphysema. Osseous mineralization the medial aspect of the thigh distallylikely postsurgical. Moderate diffuse soft tissue swelling. IMPRESSION: Expected postsurgical changes of total knee arthroplasty. CRITICAL RESULT: No. COMMUNICATION: Per this written report. By electronically signing this report, I, the attending physician, attestthat I have personally reviewed the images/data for the aboveexamination(s) and agree with the final edited report. Drafted by Enrique Duarte MD on 01/19/2025 11:30 AM Final report signed by Madhu Jalloh MD on 01/19/2025 11:58 AM us Ben August MD IMG XR PROCEDURES Final R esult documented in this encounter Visit Diagnoses Diagnosis Primary osteoarthritis of one knee, right- Primary Primary osteoarthritis of one knee, right documented in this encounter Admitting Diagnoses Diagnosis Primary osteoarthritis of one knee, right Primary osteoarthritis of right knee documented in this encounter Administered Medications Inactive Administered Medications - up to 3 most recent administrations Medication Order MAR Action Action Date Dose Rate Site acetaminophen (Tylenol) tablet 1,000 mg 1,000 mg, Oral, Once, 1 dose, On Fri01/19/25 at 0900, Routine, Holding - Preprocedure Given 01/19/2025 8:59 AM EDT 1,000 mg acetaminophen (Tylenol) tablet 1,000 mg 1,000 mg, Oral, Every 8 hours scheduled, First dose on Fri01/19/25 at 1800, Until Discontinued, Routine, Recovery(Phase II-Outpatient)/On Unit(Inpatient) Given 01/20/2025 1:01 PM EDT 1,000 mg Given 01/20/2025 5:27 AM EDT 1,000 mg Given 01/19/2025 5:35 PM EDT 1,000 mg apixaban (Eliquis) tablet 2.5 mg 2.5 mg, Oral, 2 times daily, First dose on Fri01/20/25 at 0900, Until Discontinued, Routine Given 01/20/2025 8:54 AM EDT 2.5 mg bethanechol (Urecholine) tablet 20 mg 20 mg, Oral, Once as needed, 1 dose, Starting on Fri01/19/25 at 1129, Until Tracey 01/20/25 at 1555, Routine, Recovery(Phase II-Outpatient)/On Unit(Inpatient), other, post-op urinary retention bisacodyl (Dulcolax) suppository 10 mg 10 mg, Rectal, Daily PRN, Starting on Fri01/19/25 at 1129, Until Tracey 01/20/25 at 1555, Routine, Recovery(Phase II-Outpatient)/On Unit(Inpatient), constipation, for constipation - use if no bowel movement after giving magnesium hydroxide calcium-vitamin D 500-200 MG-UNIT per tablet 1 tablet 1 tablet, Oral, 2 times daily with meals, First dose on Fri01/19/25 at 2100, Until Discontinued, Routine, Recovery(Phase II-Outpatient)/On Unit(Inpatient) Given 01/20/2025 8:54 AM EDT 1 tablet Given 01/19/2025 8:56 PM EDT 1 tablet ceFAZolin (Ancef) injection 2 g 2 g, Intravenous, Every 8 hours, 3 doses, First dose on Fri01/19/25 at 1700, Last dose on Fri01/20/25 at 0900, Routine, Recovery(Phase II-Outpatient)/On Unit(Inpatient) Given 01/20/2025 8:54 AM EDT 2 g Given 01/20/2025 12:56 AM EDT 2 g Given 01/19/2025 4:19 PM EDT 2 g dexamethasone (Decadron) injection 8 mg 8 mg, Intravenous, Once, 1 dose, On Fri01/19/25 at 0900, Routine, Holding - Preprocedure Given 01/19/2025 8:41 AM EDT 8 mg diphenhydrAMINE (Benadryl) tablet 12.5 mg 12.5 mg, Oral, Every 4 hours PRN, Starting on Fri01/19/25 at 1129, Until Tracey 01/20/25 at 1555, Routine, Recovery(Phase II-Outpatient)/On Unit(Inpatient), itching, sleep gabapentin (Neurontin) capsule 100 mg 100 mg, Oral, Every 8 hours, First dose on Fri01/19/25 at 1600, Until Discontinued, Routine, Recovery(Phase II-Outpatient)/On Unit(Inpatient) Given 01/20/2025 8:54 AM EDT 100 mg Given 01/20/2025 12:56 AM EDT 100 mg Given 01/19/2025 4:19 PM EDT 100 mg gabapentin (Neurontin) capsule 300 mg 300 mg, Oral, Once, 1 dose, On Fri01/19/25 at 0900, Routine, Holding - Preprocedure Given 01/19/2025 8:59 AM EDT 300 mg HYDROmorphone (Dilaudid) injection 0.5 mg 0.5 mg, Intravenous, Every 6 hours PRN, Starting on Fri01/19/25 at 1129, Until Tracey 01/20/25 at 1555, Routine, Recovery(Phase II-Outpatient)/On Unit(Inpatient), severe pain, pain score 9-10 ketorolac (Toradol) injection 15 mg 15 mg, Intravenous, Once, 1 dose, On Fri01/19/25 at 0900, Routine, Holding - Preprocedure Given 01/19/2025 8:40 AM EDT 15 mg lactated Ringer's infusion 50 mL/hr, Intravenous, Continuous, Starting on Fri01/19/25 at 1145, Until Tracey 01/20/25 at 1058, Routine New Bag 01/19/2025 10:59 AM EDT 50 mL/hr 50 m L/hr levothyroxine (Synthroid, Levoxyl) tablet 137 mcg 137 mcg, Oral, Every morning, First dose on Fri01/20/25 at 0600, Until Discontinued, Routine Given 01/20/2025 5:27 AM EDT 137 mcg magnesium hydroxide (Milk of Magnesia) 400 MG/5ML suspension 30 mL 30 mL, Oral, 2 times daily PRN, Starting on Fri01/19/25 at 1129, Until Tracey 01/20/25 at 1555, Routine, Recovery(Phase II-Outpatient)/On Unit(Inpatient), constipation, for constipation - use as first line agent ondansetron (Zofran) injection 4 mg 4 mg, Intravenous, Every 6 hours PRN, Starting on Fri01/19/25 at 1129, Until Tracey 01/20/25 at 1555, Routine, Recovery(Phase II-Outpatient)/On Unit(Inpatient), nausea, vomiting oxyCODONE (Roxicodone) immediate release tablet 5 mg 5 mg, Oral, Once, 1 dose, On Fri01/19/25 at 0900, Routine, Holding - Preprocedure Given 01/19/2025 8:59 AM EDT 5 mg oxyCODONE (Roxicodone) immediate release tablet 5 mg 5 mg, Oral, Every 4 hours PRN, Starting on Fri01/19/25 at 1129, Until Tracey 01/20/25 at 1555, Routine, Recovery(Phase II-Outpatient)/On Unit(Inpatient), Moderate/Severe Pain > or =3: CPOT; > or =4: FLACC, PAINAD, NPASS, NRS, Martinez-Stubbs Faces; > or =5: DVPRS, NIPS , severe pain, Severe pain 5-8 Given 01/20/2025 8:54 AM EDT 5 mg Given 01/19/2025 8:56 PM EDT 5 mg Given 01/19/2025 1:40 PM EDT 5 mg pantoprazole (Protonix) EC tablet 40 mg 40 mg, Oral, Daily before breakfast, First dose on Fri01/19/25 at 1215, Until Discontinued, Routine, Recovery(Phase II-Outpatient)/On Unit(Inpatient) Given 01/20/2025 8:54 AM EDT 40 mg Given 01/19/2025 4:19 PM EDT 40 mg polyethylene glycol (Miralax) packet 17 g 17 g, Oral, Daily with breakfast, First dose on Fri01/20/25 at 0800, Until Discontinued, Routine, Recovery(Phase II-Outpatient)/On Unit(Inpatient) Given 01/20/2025 8:54 AM EDT 17 g Povidone-Iodine 5 % swab solution 1 Application Nasal, Once, 1 dose, On Fri01/19/25 at 0900, Routine Given 01/19/2025 8:49 AM EDT 1 Application rosuvastatin (Crestor) tablet 20 mg 20 mg, Oral, Nightly, First dose on Fri01/19/25 at 2100, Until Discontinued, Routine Given 01/19/2025 8:56 PM EDT 20 mg senna-docusate (Meaghan-Colace) 8.6-50 MG per tablet 2 tablet 2 tablet, Oral, Nightly, First dose on Fri01/19/25 at 2100, Until Discontinued, Routine, Recovery(Phase II-Outpatient)/On Unit(Inpatient) Given 01/19/2025 8:56 PM EDT 2 tablets traMADol (Ultram) tablet 100 mg 100 mg, Oral, Every 8 hours scheduled, First dose on Fri01/19/25 at 1800, Until Discontinued, Routine, Recovery(Phase II-Outpatient)/On Unit(Inpatient) Given 01/20/2025 1:02 PM EDT 100 mg Given 01/20/2025 5:26 AM EDT 100 mg Given 01/19/2025 5:35 PM EDT 100 mg traMADol (Ultram) tablet 50 mg 50 mg, Oral, Once, 1 dose, On Fri01/19/25 at 0900, Routine, Holding - Preprocedure Given 01/19/2025 8:59 AM EDT 50 mg traMADol (Ultram) tablet 50 mg 50 mg, Oral, Every 12 hours PRN, Starting on Fri01/19/25 at 1129, Until Tracey 01/20/25 at 1555, Routine, Recovery(Phase II-Outpatient)/On Unit(Inpatient), severe pain, pain score 3-5. use prior to oxycodone or hydromorphone vancomycin in NS (Vancocin) IVPB 1,500 mg 1,500 mg (rounded from 1,560 mg = 15 mg/kg 104 kg), Intravenous, Once, 1 dose, On Fri01/19/25 at 0900, at 166.7 mL/hr, STAT New Bag 01/19/2025 8:41 AM EDT 1,500 mg 166.7 mL/h r documented in this encounter Active and Recently Administered Medications Times are shown in EDT. Scheduled Medication Order 01/18/2025 01/19/2025 01/20/2025 acetaminophen (Tylenol) tablet 1,000 mg (COMPLETED) 1,000 mg, Oral, Once, 1 dose, On Fri01/19/25 at 0900, Routine, Holding - Preprocedure 0859 (Given - Provider: Nanda Villatoro RN) acetaminophen (Tylenol) tablet 1,000 mg 1,000 mg, Oral, Every 8 hours scheduled, First dose on Fri01/19/25 at 1800, Until Discontinued, Routine, Recovery(Phase II-Outpatient)/On Unit(Inpatient) 1735 (Given - Provider: Augustin Salazar RN) 0527 (Given - Provider: Ying Hutton)1301 (Given - Provider: Sarah Alvares) apixaban (Eliquis) tablet 2.5 mg 2.5 mg, Oral, 2 times daily, First dose on Fri01/20/25 at 0900, Until Discontinued, Routine 0854 (Given - Provid er: Sarah Alvares) calcium-vitamin D 500-200 MG-UNIT per tablet 1 tablet 1 tablet, Oral, 2 times daily with meals, First dose on Fri01/19/25 at 2100, Until Discontinued, Routine, Recovery(Phase II-Outpatient)/On Unit(Inpatient) 2055 (Given - Provider: Ying Hutton) 0854 (Given - Provider: Sarah Alvares) ceFAZolin (Ancef) injection 2 g (COMPLETED) 2 g, Intravenous, Every 8 hours, 3 doses, First dose on Fri01/19/25 at 1700, Last dose on Fri01/20/25 at 0900, Routine, Recovery(Phase II-Outpatient)/On Unit(Inpatient) 1619 (Given - Provider: Augustin Salazar RN) 0056 (Given - Provider: Ying Hutton)0854 (Given - Provider: Sarah Alvares) dexamethasone (Decadron) injection 8 mg (COMPLETED) 8 mg, Intravenous, Once, 1 dose, On Fri01/19/25 at 0900, Routine, Holding - Preprocedure 0841 (Given - Provider: Nanda Villatoro RN) gabapentin (Neurontin) capsule 100 mg 100 mg, Oral, Every 8 hours, First dose on Fri01/19/25 at 1600, Until Discontinued, Routine, Recovery(Phase II-Outpatient)/On Unit(Inpatient) 161 (Given - Provider: Augustin Salazar, VALENTIN) 005 (Given - Provider: Ying Hutton)0854 (Given - Provider: Sarah Alvares) gabapentin (Neurontin) capsule 300 mg (COMPLETED) 300 mg, Oral, Once, 1 dose, On Fri01/19/25 at 0900, Routine, Holding - Preprocedure 0859 (Given - Provider: Nanda Villatoro RN) ketorolac (Toradol) injection 15 mg (COMPLETED) 15 mg, Intravenous, Once, 1 dose, On Fri01/19/25 at 0900, Routine, Holding - Preprocedure 0840 (Given - Provider: Nanda Villatoro RN) levothyroxine (Synthroid, Levoxyl) tablet 137 mcg 137 mcg, Oral, Every morning, First dose on Fri01/20/25 at 0600, Until Discontinued, Routine 0527 (Given - Provid er: Ying Hutton) oxyCODONE (Roxicodone) immediate release tablet 5 mg (COMPLETED) 5 mg, Oral, Once, 1 dose, On Fri01/19/25 at 0900, Routine, Holding - Preprocedure 0859 (Given - Provider: Nanda Villatoro RN) pantoprazole (Protonix) EC tablet 40 mg 40 mg, Oral, Daily before breakfast, First dose on Fri01/19/25 at 1215, Until Discontinued, Routine, Recovery(Phase II-Outpatient)/On Unit(Inpatient) 1618 (Given - Provider: Augustin Salazar, VALENTIN) 0854 (Given - Provider: Sarah Alvares) polyethylene glycol (Miralax) packet 17 g 17 g, Oral, Daily with breakfast, First dose on Fri01/20/25 at 0800, Until Discontinued, Routine, Recovery(Phase II-Outpatient)/On Unit(Inpatient) 0854 (Given - Provid er: Sarah Alvares) Povidone-Iodine 5 % swab solution 1 Application (COMPLETED) Nasal, Once, 1 dose, On Fri01/19/25 at 0900, Routine 0849 (Given - Provider: Nanda Villatoro, RN) rosuvastatin (Crestor) tablet 20 mg 20 mg, Oral, Nightly, First dose on Fri01/19/25 at 2100, Until Discontinued, Routine 2055 (Given - Provider: Ying Hutton) senna-docusate (Meaghan-Colace) 8.6-50 MG per tablet 2 tablet 2 tablet, Oral, Nightly, First dose on Fri01/19/25 at 2100, Until Discontinued, Routine, Recovery(Phase II-Outpatient)/On Unit(Inpatient) 2055 (Given - Provider: Ying Hutton) traMADol (Ultram) tablet 100 mg 100 mg, Oral, Every 8 hours scheduled, First dose on Fri01/19/25 at 1800, Until Discontinued, Routine, Recovery(Phase II-Outpatient)/On Unit(Inpatient) 1735 (Given - Provider: Augustin Salazar RN) 0526 (Given - Provider: Ying Hutton)1302 (Given - Provider: Sarah Alvares) traMADol (Ultram) tablet 50 mg (COMPLETED) 50 mg, Oral, Once, 1 dose, On Fri01/19/25 at 0900, Routine, Holding - Preprocedure 0859 (Given - Provider: Nanda Villatoro, VALENTIN) tranexamic acid (Cyklokapron) 1,500 mg in sodium chloride 0.9 % 100 mL (15 mg/mL) IVPB (COMPLETED) 1,500 mg, Intravenous, Once, 1 dose, On Fri01/19/25 at 0900, Routine, Anesthesia Intraprocedure 0940 (New Bag - Provider: Miguel Collins CRNA, ALIE)1029 (Bolus - Provider: Miguel Collins CRNA, ALIE) vancomycin in NS (Vancocin) IVPB 1,500 mg (COMPLETED) 1,500 mg (rounded from 1,560 mg = 15 mg/kg 104 kg), Intravenous, Once, 1 dose, On Fri01/19/25 at 0900, at 166.7 mL/hr, STAT 0841 (New Bag - Provider: Nanda Villatoro, RN) Continuous Medication Order 01/18/2025 01/19/2025 01/20/2025 lactated Ringer's infusion 50 mL/hr, Intravenous, Continuous, Starting on Fri01/19/25 at 1145, Until Tracey 01/20/25 at 1058, Routine 1059 (New Bag - Provider: Alexa Tate, VALENTIN) PRN Medication Order 01/18/2025 01/19/2025 01/20/2025 bethanechol (Urecholine) tablet 20 mg 20 mg, Oral, Once as needed, 1 dose, Starting on Fri01/19/25 at 1129, Until Tracey 01/20/25 at 1555, Routine, Recovery(Phase II-Outpatient)/On Unit(Inpatient), other, post-op urinary retention bisacodyl (Dulcolax) suppository 10 mg 10 mg, Rectal, Daily PRN, Starting on Fri01/19/25 at 1129, Until Tracey 01/20/25 at 1555, Routine, Recovery(Phase II-Outpatient)/On Unit(Inpatient), constipation, for constipation - use if no bowel movement after giving magnesium hydroxide bupivacaine-EPINEPHrine PF (Marcaine w/EPI) 0.5% -[id number] injection (CANCELED) As needed, Starting on Fri01/19/25 at 1024, Until Fri01/19/25 at 1052, Routine, Intraprocedure 1024 (Given - Provider: Ben August MD) diphenhydrAMINE (Benadryl) tablet 12.5 mg 12.5 mg, Oral, Every 4 hours PRN, Starting on Fri01/19/25 at 1129, Until Rtacey 01/20/25 at 1555, Routine, Recovery(Phase II-Outpatient)/On Unit(Inpatient), itching, sleep HYDROmorphone (Dilaudid) injection 0.5 mg 0.5 mg, Intravenous, Every 6 hours PRN, Starting on Fri01/19/25 at 1129, Until Tracey 01/20/25 at 1555, Routine, Recovery(Phase II-Outpatient)/On Unit(Inpatient), severe pain, pain score 9-10 magnesium hydroxide (Milk of Magnesia) 400 MG/5ML suspension 30 mL 30 mL, Oral, 2 times daily PRN, Starting on Fri01/19/25 at 1129, Until Tracey 01/20/25 at 1555, Routine, Recovery(Phase II-Outpatient)/On Unit(Inpatient), constipation, for constipation - use as first line agent ondansetron (Zofran) injection 4 mg 4 mg, Intravenous, Every 6 hours PRN, Starting on Fri01/19/25 at 1129, Until Tracey 01/20/25 at 1555, Routine, Recovery(Phase II-Outpatient)/On Unit(Inpatient), nausea, vomiting oxyCODONE (Roxicodone) immediate release tablet 5 mg 5 mg, Oral, Every 4 hours PRN, Starting on Fri01/19/25 at 1129, Until Tracey 01/20/25 at 1555, Routine, Recovery(Phase II-Outpatient)/On Unit(Inpatient), Moderate/Severe Pain > or =3: CPOT; > or =4: FLACC, PAINAD, NPASS, NRS, Martinez-Stubbs Faces; > or =5: DVPRS, NIPS , severe pain, Severe pain 5-8 1340 (Given - Provider: Nanda Villatoro RN)2056 (Given - Provider: Ying Hutton) 0854 (Given - Provider: Sarah Alvares) traMADol (Ultram) tablet 50 mg 50 mg, Oral, Every 12 hours PRN, Starting on Fri01/19/25 at 1129, Until Tracey 01/20/25 at 1555, Routine, Recovery(Phase II-Outpatient)/On Unit(Inpatient), severe pain, pain score 3-5. use prior to oxycodone or hydromorphone documented in this encounter Additional Health Concerns Active Problems Noted Date Diagnosed Date Autogenerated Problem 01/20/2025 Assessment Noted Time A fall risk assessment has been complete d for the patient 01/11/2025 1:47 PM EDT A Body Mass Index follow-up plan has been documented for the patient 01/20/2025 11:40 AM EDT documented as of this encounter Care Teams Padded Products Finisher Relationship Specialty Start Date End Date Elodia Manrique APRN [address] [place] [address] PCP - General 01/10/25 documented as of this encounter
--- OUTSIDE RECORDS SUMMARY | 2025-01-19 08:34 | XMS_ITS | Encounter Summary ---
Author Organization Healthcare Address [address] [place] [address] Care Team Providers Care Duralumin Metalworker Name Role Phone Elodia Manrique LUZ MARINA Primary Care Provider [phone] Reason for Visit * Auth/Cert (Routine) Specialty Diagnoses / Procedures Referred By Contac t Referred To Contact Diagnoses Primary osteoarthritis of one knee, right Primary osteoarthritis of one knee, right [M17.11] Procedures AL TOTAL KNEE ARTHROPLASTY AL TOTAL KNEE ARTHROPLASTY ARTHROPLASTY, KNEE, TOTAL Ben Carlos MD [address] [facility] [address] [place] [address] Phone: tel: fax: [facility] Operating Room [address] [place] [address] Phone: tel: Referral ID Status Reason Start Date Expiration Date Visits Re quested Visits Authorized [id number] 1 1 Encounter Details Date Type Department Care Team (Late st Contact Info) Description 01/19/2025 9:34 AM EDT Anesthesia Event [facility] Operating Room [address] [place] [address] Lee Coe DO [address] [place] [address] Anesthesia Record Procedure Summary Procedure Name Responsible Anesthesiologist Anesthesia Start Time Anesthesia Stop Time ARTHROPLASTY, KNEE, TOTAL (Right: Knee) Lee Coe DO 01/19/25 0934 01/19/25 1058 Events Date Time Event Comment 01/19/2025 0834 0934 An Start The patient was reevaluated immediately before sedation and remains eligible for anesthesia plan. 0937 In Room 0938 An Start Data 0939 An Induction The patient was reevaluated immediately before moderate or deep sedation use and before anesthesia induction. 0940 Anesthesia Ready 0952 Proc Start 1050 Proc Fin 1051 an stop data 1052 Out of Room 1058 Handoff to Receiving I compl eted my handoff to the receiving clinician during which we: 1. Identified the patient 2. Identified the responsible provider 3. Reviewed the pertinent medical history 4. Discussed the surgical course 5. Reviewed intra-op anesthesia management and issues during anesthesia 6. Set expectations for post-procedure period 7. Allowed opportunity for questions and acknowledgement of understanding. 1058 An Stop Meds Name Total propofol (Diprivan) injection 10 mg/mL 2 00 mg midazolam (Versed) injection 2 mg bupivacaine in dextrose (MARCAINE SPINAL ) 0.75-8.25 % 1.8 mL propofol (Diprivan) infusion 10 mg/mL 49 8.16 mg tranexamic acid (Cyklokapron ) 1,500 mg in sodium chloride 0.9 % 100 mL (15 mg/mL) IVPB 2,000 mg ceFAZolin (Ancef) vial 1 g 4 g dexmedetomidine (Precedex) injection 100 mcg/mL 12 mcg lactated Ringer's infusion 500 mL * Agents Name O2 N2O Air Sevoflurane Inspired Sevoflurane N2O Inspired N2O * Blood No blood administrations on file. Lines, Drains, and Airways Type Details Placement Removal Wound 01/19/25; 0953; N; Y es; Surgical; Open Surg (dressed with prineo, abds, pro net, lisette wrap); Knee; Anterior, Right 01/19/25 0953 by Renee Main RN Closed/Suction Drain 01/19/25; 0954; No; Yes; Right; Knee; Accordion 01/19/25 0954 by Renee Main RN Peripheral IV Placement Date: 01/19/25; Placement Time: 0840; Catheter Size: 20 G; Orientation: Left; Location: Antecubital; Site Prep: Chlorhexidine ; Local Anesth: None; Technique: Anatomical landmarks; Insertion Attempts: 1; Removal Date: 01/21/25; Removal Time: 1355 01/19/25 0840 by Nanda Villatoro RN 01/21/25 1355 by Discharge Provider, Automatic documented in this encounter Social History Tobacco Use Types Packs/Day Years [...] on file documented as of this encounter Functional Status * Calculated C-SSRS Risk Score (Lifetime/Recent) Answer Date of Assessment Author No Risk Indicated 01/19/2025 8:25 AM EDT Nanda Villatoro RN * Question Answer Date of Assessment Author 1. Wish to be (Past 1 Month) No 01/19/2025 8:25 AM EDT Bernice Villatoro RN 2. Non-Specific Active Suicidal Thoughts (Past 1 Month) No 01/19/2025 8:25 AM EDT Bernice Villatoro RN 6. Suicidal Behavior (Lifetime) No 01/19/2025 8:25 AM EDT Bernice Villatoro RN documented as of this encounter Miscellaneous Notes * Anesthesia Postprocedure Evaluation - Miguel Collins CRNA, DNP - 01/19/2025 10:59 AM EDT Patient: Felicia Seals Anesthesia Type: general [facility] Anesthesia Exemption: Unknown Vitals Value Taken Time BP 97/49 01/19/25 10:56 Temp 97.6 01/19/25 10:59 Pulse 84 01/19/25 10:57 Resp 15 01/19/25 10:57 SpO2 95 % 01/19/25 10:57 Vitals shown include unfiled device data. Anesthesia Post Evaluation Patient location during evaluation: PACU Patient participation: complete - patient participated Level of consciousness: awake Pain management: adequate (pain score 0-3) Airway patency: natural airway Cardiovascular status: acceptable and hemodynamically stable Respiratory status: acceptable, blow-by oxygen and spontaneous ventilation Hydration status: acceptable Nausea/Vomiting: No No notable events documented. * Anesthesia Procedure Notes - Angie Wright MD - 01/19/2025 9:14 AM EDT Associated Order(s): Spinal Block Spinal Block Patient location during procedure: pre-op Reason for block: post-op pain management Block is at surgeon's request Staffing Performed: Resident Anesthesiologist: Melania Ryder MD Resident: Angie Wright MD Preanesthetic Checklist Completed: patient identified, IV checked, site marked, risks and benefits discussed, surgical consent, monitors and equipment checked, pre-op evaluation and timeout performed Spinal Block Patient position: sitting Prep: ChloraPrep Approach: midline Location: L3-4 Injection technique: single-shot Needle Needle type: pencil-point Needle gauge: 25 G Needle length: 3.5 in Medications Administered: midazolam (Versed) injection - Intravenous 2 mg - 01/19/2025 9:07:00 AM bupivacaine in dextrose (MARCAINE SPINAL) 0.75-8.25 % - Intrathecal 1.8 mL - 01/19/2025 9:10:00 AM Assessment Sensory level: adequate Events: cerebrospinal fluid Additional Notes Iliac crest palpated and line drawn to demarcate the L4 spinous process level. Interspaces were palpated above and below this to identify the best interspace. Spinal performed with 1.8ml of 0.75% bupivacaine. Good aspiration of CSF before and after injection. Patient tolerated procedure well without complication. Cosigned by Lee Coe DO at 01/19/2025 9:22 AM EDT Associated attestation - Lee Coe DO - 01/19/2025 9:22 AM EDT I was present during all critical and oropeza portions of the procedure(s) and immediately available [facility] services the entire duration. See resident note for details. * Anesthesia Preprocedure Evaluation - Angie Wright MD - 01/18/2025 8:53 AM EDT Anesthesiologist: Lee Coe DO PAYROLL REPRESENTATIVE: Miguel Collins CRNA, ALIE Director Of Knowledge Management: (Unknown) Patient: Felicia Seals HPI Felicia Seals is a 69 y.o. female with body mass index is unknown because there is no height or weight on file. who presents with Primary osteoarthritis of one knee, right, now for ARTHROPLASTY, KNEE, TOTAL (Right). PMH of anxiety, HTN, HLD, hypothyroidism, hepatic steatosis w/o cirrhosis, OA and obesity (BMI 37). Pt not on blood thinner, [id number] Procedure Information Date/Time: 01/19/25944 Procedure: ARTHROPLASTY, KNEE, TOTAL (Right: Knee) - Pineda and nephew R [facility] Location: OR [address] [place] [address] OR Surgeons: Ben Carlos MD Relevant Problems Other (+) Primary osteoarthritis of one knee, right (+) Primary osteoarthritis of right knee ALLERGIES Allergies[1] NPO STATUS Past Medical History[2] AIRWAY HISTORY Airway Detailed Review Displaying the 20 most recent records No records found. MEDICATIONS Outpatient Current Outpatient Medications Medication Instructions Biotin-Vitamin C (HAIR SKIN NAILS GUMMIES PO) 1 Chewable tablet, Oral, Daily cholecalciferol (VITAMIN D3) 1,000 Units, Daily estradiol (Vagifem) 10 MCG tablet vaginal tablet Insert 1 tablet into the vagina 2 times a week. ibuprofen 200 mg, Every 6 hours PRN levothyroxine (SYNTHROID, LEVOXYL) 137 mcg, Daily losartan (Cozaar) 50 MG tablet Take 1 tablet by mouth 2 times a day. rosuvastatin (CRESTOR) 20 mg, Nightly triamcinolone (Kenalog) 0.1 % lotion 1 Application, Topical, As needed Scheduled Current Scheduled Medications[3] PRNs Current PRN Medications[4] SURGICAL HX: Surgical History[5] SOCIAL HX: Social History[6] OBJECTIVE DATA LABS Lab Results Component Value Date WBC 5.50 01/11/2025 HGB 13.2 01/11/2025 HCT 40.4 01/11/2025 MCV 93 01/11/2025 PLT 247 01/11/2025 Lab Results Component Value Date CALCIUM 9.2 01/11/2025 BUN 9 01/11/2025 CREATININE 1.00 01/11/2025 BCR 9 01/11/2025 NA 144 01/11/2025 K 4.1 01/11/2025 CL 105 01/11/2025 CO2 25 01/11/2025 Type and Screen No results found for: ABO Lab Results Component Value Date HGBA1C 5.3 01/11/2025 Lab Results Component Value Date GLUCOSE 91 01/11/2025 ABG No results found for: PHART , FGF0BZZ , PO2ART , SO2ART , BEART , IRR1TWM , HCTART , SODIUMART , POTASSIUMART , POCTCL , POCGLU , IONCALART , LACTATE No results found for: PH , PCO2 , PO2 , Y9GCGTLI , BASEEXC , HCTSYR , KSYR , CLSYR , GLUSYR , CAION , LACTATE ECHO No echocardiogram results found for the past 12 months PFTs No results found for: ORC0EOR , NJQ3DERG , DPP8UOG , FVCPRED BP Readings from Last 5 Encounters: 01/11/25 (!) 146/72 12/14/24 (!) 166/80 10/05/24 (!) 144/81 06/22/24 (!) 170/83 03/23/24 127/87 Physical Exam Airway Mallampati: III Mouth opening: normal TM distance: >3 FB Neck ROM: full Cardiovascular Rhythm: regular Rate: normal Dental (+) implants Pulmonary Breath sounds clear to auscultation Neurological Oriented: normal to time, normal to place and normal to person and oriented to person, place and time Skin - normal exam Musculoskeletal - normal exam Extremities Other findings: Front two upper teeth are spinals Anesthesia Plan ASA 2 Plan was reviewed with: attending Anesthesia technique(s) discussed with the patient/family: general, MAC and spinal Anesthesia plan agreed upon was: general Anesthetic plan and risks discussed with patient. Anesthesia Evaluation [1] No Known Allergies [2] Past Medical History: Diagnosis Date Adverse effect of anesthesia mother mean when she woke up Anxiety Arthritis Fatty liver High cholesterol Hypertension 2010 Hypothyroidism Obesity 2013 Syncope while on coreg--last time 12/2023 Thyroid disorder [3] [4] [5] Past Surgical History: Procedure Laterality Date CHOLECYSTECTOMY 2003 COLONOSCOPY FOOT SURGERY Left 2016 Foot [facility] HAND SURGERY Left 2002 [facility] HYSTERECTOMY N/A 2003 Hysterectomy from [facility] JOINT REPLACEMENT Left 2014 Left unicompartmental knee OTHER SURGICAL HISTORY place removed from lip WRIST SURGERY Left 2001 [6] Social History Tobacco Use Smoking status: Never Passive exposure: Never Smokeless tobacco: Never Vaping Use Vaping status: Never Used Substance Use Topics Alcohol use: Not Currently Comment: Alcoholic Drinks/day: Rarely consumes alcohol Drug use: Never Cosigned by Lee Coe DO at 01/19/2025 9:15 AM EDT Associated attestation - Lee Coe DO - 01/19/2025 9:15 AM EDT I agree with the findings and care plan documented in the preprocedure evaluation note. documented in this encounter Plan of Treatment Upcoming Encounters Date Type Department Care Team (Late st Contact Info) Description 06/07/2025 9:40 AM EST Office Visit Medical Office Building [facility] [address] [facility], [address] [place] [address] Ben Carlos MD [address] [place] [address] documented as of this encounter Goals Goal Patient Goal Type Associated Problems Recent Progress Patient-Stated? Author Autogenerat ed Goal Care Plan Autogenerated Problem No fernandoRosario ivan documented as of this encounter Procedures Procedure Name Priority Date/Time Associated Diagnosis Comments PB ANESTHESIA NON-TIMED PROCEDURE PLACEHOLDER Routine 01/19/2025 9:14 AM EDT documented in this encounter Results * PB ANESTHESIA NON-TIMED PROCEDURE PLACEHOLDER (01/19/2025 9:14 AM EDT) Narrative Lee Coe DO - 01/19/2025 9:14 AM EDT Lee Coe DO 01/19/2025 9:22 AM Spinal Block Patient location during procedure: pre-op Reason for block: post-op pain management Block is at surgeon's request Staffing Performed: Resident Anesthesiologist: Melania Ryder MD Resident: Angie Wright MD Preanesthetic Checklist Completed: patient identified, IV checked, site marked, risks and benefits discussed, surgical consent, monitors and equipment checked, pre-op evaluation and timeout performed Spinal Block Patient position: sitting Prep: ChloraPrep Approach: midline Location: L3-4 Injection technique: single-shot Needle Needle type: pencil-point Needle gauge: 25 G Needle length: 3.5 in Medications Administered: midazolam (Versed) injection - Intravenous 2 mg - 01/19/2025 9:07:00 AM bupivacaine in dextrose (MARCAINE SPINAL) 0.75-8.25 % - Intrathecal 1.8 mL - 01/19/2025 9:10:00 AM Assessment Sensory level: adequate Events: cerebrospinal fluid Additional Notes Iliac crest palpated and line drawn to demarcate the L4 spinous process level. Interspaces were palpated above and below this to identify the best interspace. Spinal performed with 1.8ml of 0.75% bupivacaine. Good aspiration of CSF before and after injection. Patient tolerated procedure well without complication. us Ben Carlos MD ANESTHESIA ORDERABLES Fin al Result documented in this encounter Visit Diagnoses Not on filedocumented in this encounter Administered Medications Inactive Administered Medications - up to 3 most recent administrations Medication Order MAR Action Action Date Dose Rate Site bupivacaine in dextrose (Marcaine Spinal) 0.75-8.25 % injection Intrathecal, Once PRN Procedure, Starting on Fri01/19/25 at 0910, Until Fri01/19/25 at 0910, Routine, Anesthesia Intraprocedure Given 01/19/2025 9:10 AM EDT 1.8 mL ceFAZolin (Ancef) injection Intravenous, As needed, Starting on Fri01/19/25 at 0946, Until Fri01/19/25 at 1058, Routine, Anesthesia Intraprocedure Given 01/19/2025 10:45 AM EDT 2 g Given 01/19/2025 9:46 AM EDT 2 g dexmedetomidine (Precedex) 100 MCG/ML concentrated solution Intravenous, As needed, Starting on Fri01/19/25 at 0943, Until Fri01/19/25 at 1058, Routine, Anesthesia Intraprocedure Given 01/19/2025 10:31 AM EDT 4 mcg Given 01/19/2025 9:43 AM EDT 4 mcg Given 01/19/2025 9:36 AM EDT 4 mcg lactated Ringer's infusion Intravenous, Continuous PRN, Starting on Fri01/19/25 at 0939, Until Fri01/19/25 at 1058, Routine New Bag 01/19/2025 9:39 AM EDT midazolam (Versed) injection Intravenous, Once PRN Procedure, Starting on Fri01/19/25 at 0907, Until Fri01/19/25 at 0907, Routine, Anesthesia Intraprocedure Given 01/19/2025 9:07 AM EDT 2 mg propofol (Diprivan) infusion 10 mg/mL Intravenous, Continuous PRN, Starting on Fri01/19/25 at 0941, Until Fri01/19/25 at 1058, Routine Rate/Dose Change 01/19/2025 10:29 AM EDT 80 mcg/kg/min 49.92 mL/hr Rate/Dose Change 01/19/2025 10:26 AM EDT 70 mcg/kg/min 43. 68 mL/hr New Bag 01/19/2025 9:41 AM EDT 100 mcg/kg/min 62.4 mL/h r propofol (Diprivan) injection Intravenous, As needed, Starting on Fri01/19/25 at 0939, Until Fri01/19/25 at 1058, Routine, Anesthesia Intraprocedure Given 01/19/2025 10:40 AM EDT 50 mg Given 01/19/2025 10:28 AM EDT 50 mg Given 01/19/2025 9:42 AM EDT 50 mg tranexamic acid (Cyklokapron) 1,500 mg in sodium chloride 0.9 % 100 mL (15 mg/mL) IVPB 1,500 mg, Intravenous, Once, 1 dose, On Fri01/19/25 at 0900, Routine, Anesthesia Intraprocedure Bolus 01/19/2025 10:29 AM EDT 1,000 mg New Bag 01/19/2025 9:40 AM EDT 1,000 mg documented in this encounter Additional Health Concerns Active Problems Noted Date Diagnosed Date Autogenerated Problem 01/20/2025 Assessment Noted Time A fall risk assessment has been complete d for the patient 01/11/2025 1:47 PM EDT A Body Mass Index follow-up plan has been documented for the patient 01/20/2025 11:40 AM EDT documented as of this encounter Care Teams Duralumin Metalworker Relationship Specialty Start Date End Date Elodia Manrique APRN [address] [place] [address] PCP - General 01/10/25 documented as of this encounter
--- OUTSIDE RECORDS SUMMARY | 2025-01-19 08:45 | XMS_ITS | Encounter Summary ---
Author Organization Healthcare Address [address] [place] [address] Care Team Providers Care Soil Conservation Aide Name Role Phone Elodia Manrique LUZ MARINA Primary Care Provider [phone] Reason for Visit * Auth/Cert (Routine) Specialty Diagnoses / Procedures Referred By Contac t Referred To Contact Diagnoses Primary osteoarthritis of one knee, right Primary osteoarthritis of one knee, right [M17.11] Procedures GA TOTAL KNEE ARTHROPLASTY GA TOTAL KNEE ARTHROPLASTY ARTHROPLASTY, KNEE, TOTAL Ben August MD [address] [place] [address] Phone: tel: fax: [facility] S Operating Room [address] [place] [address] Phone: tel: Referral ID Status Reason Start Date Expiration Date Visits Re quested Visits Authorized [id number] 1 1 Encounter Details Date Type Department Care Team (Late st Contact Info) Description 01/19/2025 9:45 AM EDT - 01/19/2025 11:35 AM EDT Surgery [facility] Operating Room [address] [place] [address] Ben August MD [address] [place] [address] ARTHROPLASTY, KNEE, TOTAL [[id number] (CPT )] Surgery Details Date/Time Status Location OR Service Patient Class Case Class Case Type Trauma Case? 01/19/2025 9:45 AM Posted [facility] OR 2SOR 01 Orthopedic Surgery Extended Recovery E-Electi ve Panel 1 Procedure LRB Anes Op Region Wound Class Comments ARTHROPLASTY, KNEE, TOTAL Right Choice Knee Class I/ Clean Pineda and nephew R TKA Surgeon Surgeon Role Service Panel Ben August MD Primary Orthopedic Surge ry 1 Special Needs pineda and nephew TKA Right documented in this encounter Social History Tobacco [...] Sign Reading Time Taken Comments Blood Pressure 118/54 01/19/2025 11:30 AM EDT Pulse 67 01/19/2025 11:30 AM EDT Temperature 36.3 C (97.3 F) 01/19/2025 11:30 AM EDT Respiratory Rate 16 01/19/2025 11:30 AM EDT Oxygen Saturation 96% 01/19/2025 11:30 AM EDT Inhaled Oxygen Concentration - - Weight [...] Villatoro RN documented as of this encounter Discharge [...] in Care Family/Caregiver Present: No Family/Caregiver: Spouse Crate Builder: Not Applicable Presentation Oxygen Therapy: None (Room [...] admission Level of Mobility: Ambulatory- community Mobility [place]: Independent gait without device History of Falls: [...] Transfer Exam: Sit to stand Level of [place]: Stand-by assist Physical/Nonphysical Assist: Supervision, Verbal Cues Assistive Device: Walker, rolling Transfer Exam: Stand to Sit Level of [place]: Stand-by assist Physical/Nonphysical Assist: Supervision, Set-up required, Verbal Cues Assistive Device: Walker, rolling Transfer Exam: Bed to Chair/Chair to Bed Level of Kingston: Stand-by assist Physical/Nonphysical Assist: Supervision Assistive Device: Walker, rolling Toilet Transfer Level of Kingston: Stand-by assist Physical/Nonphysical Assist: Supervision Type of [...] at rest to promote extension. Standardized Assessments [facility] 6-Click Daily Activities Help from Other: Don/Doff Regular Lower Body Clothings: Little Help From Other: Bathing: None Help From Other: Toileting: None Help From Other: Don/Doff Upper Body Clothings: None Help From Other: Grooming: None Help From Other: Eating Meals: None [facility] 6 Click - Daily Activities Score: 23 [...] Ben August MD PCP name and Address: Burton Elodia Owen, BULK TANK DRIVER [address] / [place] [address] Referring provider name and address: No referring provider defined for this encounter. Chief Concern, Brief History of Present Illness, and Hospital Course Patient arrived to [facility] on 01/19/2025 for their scheduled right total [...] Your Medications These medications were sent to [facility] - [place], [place] - [address] [facility] [address] [place] [address] acetaminophen 500 MG tablet apixaban 2.5 MG [...] Time Provider Department Center 02/08/2025 12:30 PM [place], Ben W, MD ORTHGSMOB GS MOB Test Results Pending [...] (Individualized) Outcome: Ongoing, Progressing Flowsheets (Taken 01/20/2025 09) Patient/Family-Specific Goals (Include Timeframe): pt will remain free from injury this shift Individualized Care Needs: pt safety Anxieties, Fears or Concerns: none stated Goal: Absence of Hospital-Acquired Illness or Injury Outcome: Ongoing, Progressing Intervention: Identify and Manage Fall Risk Flowsheets (Taken 01/20/2025 09) Safety Promotion/Fall Prevention: clutter-free environment maintained assistive device/personal items within reach fall prevention program maintained lighting adjusted mobility aid in reach nonskid shoes/slippers when out of bed room organization consistent toileting scheduled safety round/check completed Intervention: Prevent Skin Injury Flowsheets (Taken 01/20/2025 09) Body Position: weight shifting Skin Protection: protective [...] Intervention: Promote Optimal Functional Status Flowsheets Taken 01/20/20251120 Assistive Device Utilized: front wheel walker Taken [...] or Manage Neurovascular Compromise Flowsheets Taken 01/20/2025 112 Compartment Syndrome Management: active flexion/extension encouraged Neurovascular Pressure Management: ice/cold therapy applied Taken 01/20/2025 09 Compartment Syndrome Surveillance: no pain with passive [...] in Care Family/Caregiver Present: No Family/Caregiver: Spouse Crate Builder: Not Applicable Presentation Oxygen Therapy: None (Room air) Lines and Tubes: Intravenous access Pre-Session: Sitting in chair Pre-Session Comments: RN and pt consent Post-Session: Call light in reach, Chair alarm, Sitting in chair, RN notified Post-Session Comments: immediate needs met Precautions Right Lower Extremity Weight Bearing Status: Weight Bearing as Tolerated Medical Precautions: Fall precautions Objective Pain 09/14 Delirium Screening RASS: Alert and calm Confusion Assessment Method-ICU (CAM-ICU/PCAM-ICU) Feature 3: Altered Level of Consciousness: Negative Transfers Transfer Exam: Sit to stand Level of Kingston: Stand-by assist Physical/Nonphysical Assist: Supervision, Verbal Cues Assistive Device: Walker, rolling Transfer Exam: Stand to Sit Level of Kingston: Stand-by assist Physical/Nonphysical Assist: Supervision, Set-up required, [...] pattern Therapeutic Exercise (15 minutes) Access Code: [email or web address] URL: [email or web address] Date: 01/19/2025 Prepared by: Selena Rider Program [...] ( Days 8-14) Hip Extension - 3 xdaily - 10 [...] hold - Phase 3 ( Days 15-) Side Step - 3 x daily - [...] Follow up: Dr. August on 02/08 at [facility], Orthopaedic Surgery [address] [place] [address],[address], [place] [address], Disposition: Anticipate discharge today Shelley Wood MD Orthopaedic Surgery PGY-1 [facility] Orthopaedic Trauma Service Pager: [phone] Orthopaedic Recon/Spine/Foot and Ankle Service Pager: [phone] Personal Pager: [phone] Cosigned by Ben August MD at 01/20/2025 [...] verbalize adequate pain control throughout shift. Taken 01/19/20251 by Augustin Salazar RN Plan of Care [...] in Care Family/Caregiver Present: Yes Family/Caregiver: Spouse Crate Builder: Not Applicable Presentation Oxygen Therapy: None (Room [...] admission Level of Mobility: Ambulatory- community Mobility [place]: Independent gait without device History of Falls: [...] Mobility Exam: Supine to Sit Level of Kingston: Contact guard Physical/Nonphysical Assist: Supervision, Verbal Cues Assistive Device: Bed rails Transfers Transfer Exam: Sit to stand Level of Kingston: Contact guard Physical/Nonphysical Assist: Supervision, Verbal Cues, Set-up required Assistive Device: Walker, rolling Transfer Exam: Stand to Sit Level of Kingston: Contact guard Physical/Nonphysical Assist: Supervision, Set-up required, [...] strike Therapeutic Exercise (7 minutes) Access Code: [email or web address] URL: [email or web address] Date: 01/19/2025 Prepared by: Selena Rider Program [...] ( Days 8-14) Hip Extension - 3 xdaily - 10 [...] hold - Phase 3 ( Days 15-) Side Step - 3 x daily - [...] provided. Standardized Assessments Standardized Assessments Standardized Assessments: [facility] 6-Clicks Mobility Assessment [facility] 6-Clicks Mobility Assessment Difficulty patient has turning [...] 3-5 steps with a railing?: A lot [facility] 6-Clicks Mobility Assessment Total : 18 Assessment [...] from the original note were not included. 16239 Preventing Deep Vein Thrombosis After Surgery In [...] blood clots. Move your feet in a [place] or up and down. Do this 10 [...] bleeding. Last Reviewed Date: 2024 00:00:00 ?? 4010-6861 [employer]. All rights reserved. This information is not intended as a substitute for professional medical care. Always follow your healthcare professional's instructions. * Karen OnIR - Nanda Villatoro RN - 01/19/2025 12:18 PM EDT Images from the original note were not included. 46583 Preventing a Surgical Site Infection A risk [...] of infection. ? Controlled body temperature. A qqnbu-qgms-vwzunl temperature during or after surgery prevents oxygen [...] and water or with an alcohol-based hand radio intelligence operator before and after caring for you. [...] away. Last Reviewed Date: 2024 00:00:00 ?? 2637-2511 [employer]. All rights reserved. This information is not intended as a substitute for professional medical care. Always follow your healthcare professional's instructions. * [facility] - Nanda Villatoro RN - 01/19/2025 12:18 [...] changes color ? Burning feeling * [facility] - Nanda Villatoro RN - 01/19/2025 12:15 PM EDT Images from the original note were not included. 01467 After Knee Replacement: Using a Walker Following [...] after your physical or occupational therapist or infantryman has shown you the correct procedures, you [...] leg. Last Reviewed Date: 2023 00:00:00 ?? 8215-8525 [employer]. All rights reserved. This information is not intended as a substitute for professional medical care. Always follow your healthcare professional's instructions. * [facility] - Nanda Villatoro RN - 01/19/2025 12:15 PM EDT Images from the original note were not included. 67976 Using an Incentive Spirometer An incentive spirometer [...] rate Last Reviewed Date: 2024 00:00:00 ?? 8981-4388 [employer]. All rights reserved. This information is not intended as a substitute for professional medical care. Always follow your healthcare professional's instructions. * Karen Hadley - Nanda Villatoro RN - 01/19/2025 12:15 [...] medicines unless your doctor approves. This includes cstz-tgi-vlcmxkj medicines like aspirin, ibuprofen and Tylenol. ? [...] a nutritional supplement such as Boost or Nettie Instant Breakfast until your appetite returns to [...] ? If you have problems sleeping, take bthb-hxu-rscrbwa diphenhydramine (Benadryl) or melatonin. ? If you [...] prescription refill before your next appointment, call [phone]. Call 2 business days before you run out. ? To check joint stability over time, you may have X-rays every five years. When should I call the doctor? Call 911 right away if you have any of [...] your leg * Anesthesia PACU Signout - uQynh Keller DO - 01/19/2025 11:27 AM EDT [...] AM EDT Operative Note Date: 01/19/25 Location: [facility] OR Name: Felicia Seals, : [...] Attending Surgeon(s): * Ben August - [employer] Assistant Principal(s): * No surgeons found with a matching role * Anesthesia: Choice ASA: II Blood Administration: Blood Product Administration History None Estimated Blood Loss: Minimal Drains: Closed/Suction Drain Right Knee Accordion (Active) Implants Type Name Action Serial No. Cement CEMENT WITH TOBRAMYCIN - [id number] Implanted Pin CHG PIN STERILE HEADLESS 04/14 - [id number] Used, Not Implanted Patella CHG PATELLA GNS II RESURF 29MM - [id number] Implanted Knee CHG TIBIAL GNS II CMT SIZE 3 R - [id number] Implanted Knee CHG LGN XLPE DISHED ISRT SZ 3-4 11MM - [id number] Implanted Knee CHG FEMORAL LEGION CR OXIN SZ4 - [id number] Implanted Specimen: Findings: Indications: Felicia Seals is [...] osteotomy was made based on the patients cherokee anatomy, wear, and size and the patella [...] Note Felicia Seals 69 y.o. female CSN: [id number] Admission: 01/19/2025 6:30 AM Primary Problem: Primary osteoarthritis of one knee, right RW to be delivered to bedside today by [facility]. Wilda Devi RN * H&P - Ben [...] includes Hand surgery (Left, 2001); Hysterectomy (N/A, 2004); Footsurgery (Left, 2016); Cholecystectomy (2002); Joint replacement [...] your arrival time Your surgery is at [facility] located at [address] [place] [address] Please park in the parking garage and [...] card, photo ID, along with power of litigation attorney, guardianship or advanced directives if applicable [...] card, photo ID, along with power of litigation attorney, guardianship or advanced directives if applicable [...] Building [facility] [address] [facility], [address] [place] [address] Ben August MD [address] [facility] [address] [place] [address] Scheduled Referrals Name Type Priority Associated Diagnoses Orde r Schedule Orthopaedic referral to Physical Therapy Outpatient Referral Routine Primary osteoarthritis of one knee, right 1 Occurrences starting 01/19/2025 until 07/23/2026 documented as of this encounter Goals Goal Patient Goal Type Associated Problems Recent Progress Patient-Stated? Author Autogenerat ed Goal Care Plan Autogenerated Problem No AngelkinjalRosario documented as of this encounter Procedures Procedure Name Priority Date/Time Associated Diagnosis Comments XR KNEE RIGHT 1 OR 2 VIEWS Routine 01/19/2025 11:19 AM EDT GA TOTAL KNEE ARTHROPLASTY 01/19/2025 9:22 AM EDT Primary osteoarthritis of one knee, right Special Needs pineda and nephew TKA Right documented in this [...] Madhu Jalloh MD on 01/19/2025 11:58 AM Ben August MD IMG XR PROCEDURES Final R esult documented in this encounter Visit Diagnoses Diagnosis Primary osteoarthritis of one knee, right- Primary Primary osteoarthritis of one knee, right Primary osteoarthritis of one knee, right documented [...] dose, Starting on Fri01/19/25 at 1129, Until Fri01/20/25 at 1555, Routine, Recovery(Phase II-Outpatient)/On Unit(Inpatient), other, post-op urinary retention bisacodyl (Dulcolax) suppository 10 mg 10 mg, Rectal, Daily PRN, Starting on Fri01/19/25 at 1129, Until Tracey 01/20/25 at 1555, Routine, Recovery(Phase II-Outpatient)/On Unit(Inpatient), constipation, for constipation - use if no bowel movement after giving magnesium hydroxide bupivacaine-EPINEPHrine PF (Marcaine w/EPI) 0.5% -1:540625 injection As needed, Starting on Fri01/19/25 at 1024, Until Fri01/19/25 at 1052, Routine, Intraprocedure Given 01/19/2025 10:24 AM EDT 60 mL Ri ght Knee calcium-vitamin D 500-200 MG-UNIT per tablet 1 [...] on Fri01/19/25 at 1700, Last dose on Tracey 01/20/25 at 0900, Routine, Recovery(Phase II-Outpatient)/On Unit(Inpatient) Given [...] mcg, Oral, Every morning, First dose on Tracey 01/20/25 at 0600, Until Discontinued, Routine Given 01/20/2025 [...] Oral, Daily with breakfast, First dose on Tracey 01/20/25 at 0800, Until Discontinued, Routine, Recovery(Phase II-Outpatient)/On [...] PRN, Starting on Fri01/19/25 at 1129, Until [facility] 01/20/25 at 1555, Routine, Recovery(Phase II-Outpatient)/On Unit(Inpatient), [...] Oral, 2 times daily, First dose on Tracey 01/20/25 at 0900, Until Discontinued, Routine 0854 (Given [...] Fri01/20/25 at 0900, Routine, Recovery(Phase II-Outpatient)/On Unit(Inpatient) 1618 (Given - Provider: Augustin Salazar RN) 005 (Given - Provider: Ying Hutton)0854 (Given - Provider: Sarah Alvares) dexamethasone (Decadron) injection 8 mg (COMPLETED) 8 mg, Intravenous, Once, 1 dose, On Fri01/19/25 at 0900, Routine, Holding - Preprocedure 0841 (Given - Provider: Nanda Villatoro RN) gabapentin (Neurontin) capsule 100 mg 100 mg, Oral, Every 8 hours, First dose on Fri01/19/25 at 1600, Until Discontinued, Routine, Recovery(Phase II-Outpatient)/On Unit(Inpatient) 1618 (Given - Provider: Augustin Salazar RN) 005 (Given - Provider: Ying Hutton)0854 (Given [...] mcg, Oral, Every morning, First dose on Tracey 01/20/25 at 0600, Until Discontinued, Routine 0527 (Given [...] II-Outpatient)/On Unit(Inpatient) 1618 (Given - Provider: Augustin Salazar RN) 0854 (Given - Provider: Sarah Alvares) polyethylene glycol (Miralax) packet 17 g 17 g, Oral, Daily with breakfast, First dose on Tracey 01/20/25 at 0800, Until Discontinued, Routine, Recovery(Phase II-Outpatient)/On Unit(Inpatient) 0854 (Given - Provid er: Sarah Alvares) Povidone-Iodine 5 % swab solution 1 Application (COMPLETED) Nasal, Once, 1 dose, On Fri01/19/25 at 0900, Routine 0849 (Given - Provider: Nanda Villatoro RN) rosuvastatin (Crestor) tablet 20 mg 20 [...] magnesium hydroxide bupivacaine-EPINEPHrine PF (Marcaine w/EPI) 0.5% -1:746579 injection (CANCELED) As needed, Starting on Fri01/19/25 [...] documented as of this encounter Care Teams Soil Conservation Aide Relationship Specialty Start Date End Date Christine Manriquei S, BULK TANK DRIVER [address] [facility] [address] [place] [address] PCP - General 01/10/25 documented as of this encounter
--- OUTSIDE RECORDS SUMMARY | 2025-02-01 11:30 | XMS_ITS | Encounter Summary ---
Author Organization Healthcare Address [address] [place] [address] Care Team Providers Care Video Editing Intern Name Role Phone Elodia Manrique LUZ MARINA Primary Care Provider [phone] Reason for Visit * Reason Comments Post-op Pain Encounter Details Date Type Department Care Team ([facility] st Contact Info) Description 02/01/2025 12:30 PM EDT Office Visit Medical Office Building [facility] [address], [address] [place] [address] Ben Carlos MD [address] [place] [address] Acute pain of right knee (Primary Dx) Social History Tobacco Use Types Packs/Day Years Used Date Smoking Tobacco: Never Passive Smoke Exposure: Never Smokeless Tobacco: Never Tobacco Cessation:Counseling Given: Not Answered Alcohol Use Standard Drinks/Week Comments Not Currently [...] Sign Reading Time Taken Comments Blood Pressure 129/79 02/01/2025 12:22 PM EDT Pulse 79 02/01/2025 12:22 PM EDT Temperature - - Respiratory Rate 16 02/01/2025 12:22 PM EDT Oxygen Saturation 98% 02/01/2025 12:22 PM EDT Inhaled Oxygen Concentration - - Weight 105 kg (231 lb 7.7 oz) 02/01/2025 12:22 P M EDT Height 167.6 cm (5' 6 ) 02/01/2025 12:22 PM EDT Body Mass Index 37.36 02/01/2025 12:22 PM EDT documented in this encounter Miscellaneous Notes * Progress Notes - Ben Burger MD - 02/01/2025 12:30 PM EDT This is a 69 y.o. female who presents to the clinic today for evaluation of right total knee arthroplasty, 2 weeks postoperative, patient arrives 1 week prior to scheduled visit and she is working with physical therapy on postoperative day 10 and physical therapy forcibly flex her right knee and she had pain and spasms of the right knee that limited her ability to continue working physical therapy. Patient is concern for potential strain versus prosthetic loosening,. Patient has been able to maintain weight-bearing of the right lower extremity, has not returned to physical therapy, had spasms in her right thigh with perceptive radiation into the medial and lateral aspect of her leg. Medical History: Past Medical History[1] Surgical History: Surgical History[2] Social History: Social History[3] Review of Systems: Denies any fevers chills or night sweats Physical Examination: Vitals: 02/01/25 1222 BP: 129/79 Pulse: 79 Resp: 16 SpO2: 98% Than degrees short of full extension, with 90?? of flexion, stable varus and valgus stress, well-healed surgical incision with Prineo dressing intact Patient is able to form a straight leg raise, no palpable defect appreciated over the quadriceps tendon or the patellar tendon Imaging: For views of the right knee were independently reviewed and demonstrate appropriate alignment of right total knee arthroplasty without any radiographically obvious signs of periprosthetic fracture ordislocation Assessment: This is a 69 y.o. female with right total knee arthroplasty who had pain with forcible flexion withphysical therapy, on examination today and based on radiographs, no signs of catastrophic failure, patient should continue to work with physical therapy. Patient will follow up in 6 weeks with repeat radiographs of the right knee [1] Past Medical History: Diagnosis Date Adverse effect of anesthesia mother mean when she woke up Anxiety Arthritis Fatty liver High cholesterol Hypertension 2010 Hypothyroidism Obesity 2014 Osteoarthritis 2014 Syncope while on coreg--last time 12/2023 Thyroid disorder [2] Past Surgical History: Procedure Laterality Date CHOLECYSTECTOMY 2002 COLONOSCOPY FOOT SURGERY Left 2016 Foot [facility] HAND SURGERY Left 2002 Hand [facility] HYSTERECTOMY N/A 2003 Hysterectomy from [facility] JOINT REPLACEMENT Left 2014 Left unicompartmental knee KNEE SURGERY 2024 ORTHOPEDIC SURGERY 2001 All surgeries are in my records OTHER SURGICAL HISTORY place removed from lip TOTAL KNEE ARTHROPLASTY Right 01/19/2025 WRIST SURGERY Left 2001 [3] Social History Socioeconomic History Marital status: Tobacco Use Smoking status: Never Passive exposure: Never Smokeless tobacco: Never Vaping Use Vaping status: Never Used Substance and Sexual Activity Alcohol use: Not Currently Comment: Alcoholic Drinks/day: Rarely consumes alcohol Drug use: Never Sexual activity: Yes Partners: Male Comment: Hysterectomy Cosigned by Ben Carlos MD at 02/01/2025 1:10 PM EDT Associated attestation - Ben Carlos MD - 02/01/2025 1:10 PM EDT I saw and evaluated the patient with the resident/fellow. I discussed the case with the resident/fellow and agree with the findings and plan as documented. documented in this encounter Plan of Treatment Upcoming Encounters Date Type Department Care Team (Late st Contact Info) Description 06/07/2025 9:40 AM EST Office Visit Medical Office Building [facility] [address] [facility], [address] [place] [address] Ben Carlos MD [address] [facility] [address] [place] [address] Scheduled Orders Name Type Priority Associated Diagnoses Orde r Schedule 6-Week Post-Op: XR Knee (AP Standing / Lateral Standing) Imaging Routine Acute pain of right knee 1 Occurrences starting 02/01/2025 until 08/05/2026 documented as of this encounter Goals Goal Patient Goal Type Associated Problems Recent Progress Patient-Stated? Author Autogenerat ed Goal Care Plan Autogenerated Problem No Rosario Woodward documented as of this encounter Visit Diagnoses Diagnosis Acute pain of right knee- Primary documented in this encounter Additional Health Concerns Active Problems Noted Date Diagnosed Date Autogenerated Problem 01/20/2025 Assessment Noted Time A fall risk assessment has been complete d for the patient 02/01/2025 12:20 PM EDT A Body Mass Index follow-up plan has been documented for the patient 02/01/2025 1:11 PM EDT documented as of this encounter Care Teams Video Editing Intern Relationship Specialty Start Date End Date Elodia Manrique APRN [address] [place] [address] PCP - General 01/10/25 documented as of this encounter
--- OUTSIDE RECORDS SUMMARY | 2025-02-01 11:35 | XMS_ITS | Encounter Summary ---
Author Organization Healthcare Address [address] [place] [address] Care Team Providers Care Gas Main Fitter Helper Name Role Phone Elodia Manrique LUZ MARINA Primary Care Provider [phone] Encounter Details Date Type Department Care Team (Latest Contact Info) Description 02/01/2025 12:35 PM EDT - 02/01/2025 11:59 PM EDT Hospital Encounter Medical Office Building Radiology [facility] [place] [address] Acute pain of right knee Discharge Disposition: Home or Self Care Social [...] on file documented as of this encounter Medications at Time of Discharge [...] as needed for rash or irritation. 05/29/2021 docusate sodium (Colace) 250 MG capsule Take 1 capsule by mouth 2 times a day. 60 capsule 01/19/2025 5 meloxicam (Mobic) 15 MG tablet Take 1 tablet by mouth daily. For 4 weeks post-op 30 tablet 01/19/2025 5 omeprazole (PriLOSEC) [address] capsule Take 1 capsule by mouth daily for 28 days. Do not crush or chew. 28 capsule 01/19/2025 5 gabapentin (Neurontin) 100 MG capsule Take 1 capsule by mouth 3 times a day. If this medication makes you drowsy you may take it only at bedtime 30 capsule 01/19/2025 5 documented as of this encounter Plan of Treatment Upcoming Encounters Date Type Department Care Team (Late st Contact Info) Description 06/07/2025 9:40 AM EST Office Visit Medical Office Building [facility] [address], [address] [place] [address] Ben Carlos MD [address] [facility] [address] [place] [address] Scheduled Orders Name Type Priority Associated Diagnoses Orde r Schedule 6-Week Post-Op: XR Knee (AP Standing / Lateral Standing) Imaging Routine Acute pain of right knee Once for 1 Occurrences starting 02/01/2025 until 02/01/2025 documented as of this encounter Goals Goal Patient Goal Type Associated Problems Recent Progress Patient-Stated? Author Autogenerat ed Goal Care Plan Autogenerated Problem No Rosario Woodward documented as of this encounter Procedures Procedure Name Priority Date/Time Associated Diagnosis Comments XR KNEE RIGHT 4+ VIEWS Routine 02/01/2025 12:44 PM EDT Acute pain of right knee documented in this encounter Results * XR Knee Right 4+ Views (02/01/2025 12:44 PM EDT) Anatomical Region Laterality Modality Lower Extremities, Knee Right Digital Radiography Impressions 02/01/2025 12:51 PM EDT Expected postoperative changes of right total knee arthroplasty. CRITICAL RESULT: No. COMMUNICATION: Per this written report. Drafted by Roger Guerrero MD on 02/01/2025 12:50 PM Final report signed by Roger Guerrero MD on 02/01/2025 12:51 PM Narrative 02/01/2025 12:51 PM EDT CLINICAL INDICATION: knee pain TECHNIQUE: XR KNEE RIGHT 4+ VIEWS COMPARISON: January 19, 2025. FINDINGS: 3 views of the right knee show total knee arthroplasty without periprosthetic lucency or gas in the soft tissues. No complication. Standing AP view of the left knee shows medial unicompartmental joint replacement without hardware complication. Procedure Note Roger Guerrero MD - 02/01/2025 CLINICAL INDICATION: knee pain TECHNIQUE: XR KNEE RIGHT 4+ VIEWS COMPARISON: January 19, 2025. FINDINGS: 3 views of the right knee show total knee arthroplasty withoutperiprosthetic lucency or gas in the soft tissues. No complication.Standing AP view of the left knee shows medial unicompartmental jointreplacement without hardware complication. IMPRESSION: Expected postoperative changes of right total knee arthroplasty. CRITICAL RESULT: No. COMMUNICATION: Per this written report. Drafted by Roger Guerrero MD on 02/01/2025 12:50 PM Final report signed by Roger Guerrero MD on 02/01/2025 12:51 PM Ben Carlos MD IMG XR PROCEDURES Final R esult documented in this encounter Visit Diagnoses Diagnosis Acute pain of right knee documented in this encounter Additional Health Concerns Active Problems Noted Date Diagnosed Date Autogenerated Problem 01/20/2025 Assessment Noted Time A fall risk assessment has been complete d for the patient 02/01/2025 12:20 PM EDT A Body Mass Index follow-up plan has been documented for the patient 02/01/2025 1:11 PM EDT documented as of this encounter Care Teams Gas Main Fitter Helper Relationship Specialty Start Date End Date Elodia Manrique, LUZ MARINA [address] [facility] [address] [place] [address] PCP - General 01/10/25 documented as of this encounter
--- OUTSIDE RECORDS SUMMARY | 2025-03-01 10:40 | XMS_ITS | Encounter Summary ---
Author Organization Healthcare Address [address] [place] [address] Care Team Providers Care Electronic Court Recorder Name Role Phone Elodia Manrique LUZ MARINA Primary Care Provider [phone] Reason for Visit * Reason Comments Pain Pain Encounter Details Date Type Department Care Team ([facility] Contact Info) Description 03/01/2025 10:40 AM EST Office Visit Medical Office Building Surgery [facility] [address] [facility], [address] [place] [address] Ben Carlos MD [address] [place] [address] Status post total right knee replacement (Primary Dx) Social History Tobacco Use Types [...] Sign Reading Time Taken Comments Blood Pressure 142/88 03/01/2025 10:59 AM EST Pulse 80 03/01/2025 10:59 AM EST Temperature 36.6 C (97.8 F) 03/01/2025 10:59 AM EST Respiratory Rate 18 03/01/2025 10:59 AM EST Oxygen Saturation 98% 03/01/2025 10:59 AM EST Inhaled Oxygen Concentration - - Weight 102 kg (224 lb) 03/01/2025 10:59 AM EST Height 167.6 cm (5' 6 ) 03/01/2025 10:59 AM EST Body Mass Index 36.15 03/01/2025 10:59 AM EST documented in this encounter Miscellaneous Notes * Progress Notes - Glenn Ruiz MD - 03/01/2025 10:40 AM EST Subjective: Felicia Seals is a 69 y.o. female who comes in today for follow-up status post right total knee arthroplasty on 01/19/2025. Patient reports that she has had persistent pain, redness, swelling, and difficulty with mobility for about 1 week. Denies any precipitating event. She does not feel that shecan participate with physical therapy due to her symptoms. She thinks that her symptoms worsened after she continued to progress with physical therapy. Describes a dull achy sensation on the inside aspect of her knee that sometimes radiates to the outside of the lower leg. Denies fevers, chills, night sweats. She has been taking all of her medications prescribed after surgery and feels that theseare not helping. She has been having difficulty sleeping due to her symptoms. Past Medical History[1] Surgical History[2] Tobacco Use History[3] Allergies[4] Objective: BMI is Body mass index is 36.15 kg/m??. Vital signs: Visit Vitals BP (!) 142/88 Pulse 80 Temp 36.6 ??C (97.8 ??F) Resp 18 Ht 1.676 m (5' 6 ) Wt 102 kg (224 lb) SpO2 98% BMI 36.15 kg/m?? OB Status Hysterectomy Smoking Status Never BSA 2.18 m?? Constitutional: Well developed. Well nourished. Psychologic: Mood is appropriate. Appropriate affect. Pulmonary: Unlabored, normal effort. Cardiac: well perfused, extremities pink. Neuro: No focal neuro deficit, normal coordination, normal muscle tone Right knee: Mild swelling of the inferior medial aspect of the knee, no palpable fluctuance, hyperemic but no obvious erythema or discoloration compared to the contralateral extremity, knee slightly warmer though not hot, range of motion 0- 115 degrees, neurovascularly intact distally No new radiographs obtained today Assessment and plan: Status post total right knee replacement 69-year-old female status post above-mentioned procedure. No local or systemic signs of infection on evaluation today. Possible that patient's pain is due to her increased activity levels at physicaltherapy. She should continue working with physical therapy though modify her activities to where she feels comfortable/able to tolerate her therapy sessions. She may use ice and anti- inflammatory medications as needed for symptomatic control; prescription for hydrocodone provided for severe pain. Follow up 3 months with repeat radiographs. [1] Past Medical History: Diagnosis Date Adverse effect of anesthesia mother mean when she woke up Anxiety Arthritis Fatty liver High cholesterol Hypertension 2010 Hypothyroidism Obesity 2014 Osteoarthritis 2013 Syncope while on coreg--last time 12/2023 Thyroid disorder [2] Past Surgical History: Procedure Laterality Date CHOLECYSTECTOMY 2002 COLONOSCOPY FOOT SURGERY Left 2016 Foot [facility] HAND SURGERY Left 2002 Hand [facility] HYSTERECTOMY N/A 2003 Hysterectomy from [facility] JOINT REPLACEMENT Left 2013 Left unicompartmental knee KNEE SURGERY 2024 ORTHOPEDIC SURGERY 2001 All surgeries are in my records OTHER SURGICAL HISTORY place removed from lip TOTAL KNEE ARTHROPLASTY Right 01/19/2025 WRIST SURGERY Left 2001 [3] Social History Tobacco Use Smoking Status Never Passive exposure: Never Smokeless Tobacco Never [4] No Known Allergies Cosigned by Ben Carlos MD at 03/01/2025 2:40 PM EST Associated attestation - Ben Carlos MD - 03/01/2025 2:40 PM EST I saw and evaluated the patient with the resident/fellow. I discussed the case with the resident/fellow and agree with the findings and plan as documented. documented in this encounter Plan of Treatment Upcoming Encounters Date Type Department Care Team (Late st Contact Info) Description 06/07/2025 9:40 AM EST Office Visit Medical Office Building [facility] [address] [facility], [address] [place] [address] Ben Carlos MD [address] [place] [address] documented as of this encounter Goals Goal Patient Goal Type Associated Problems Recent Progress Patient-Stated? Author Autogenerat ed Goal Care Plan Autogenerated Problem No Rosario Woodward documented as of this encounter Visit Diagnoses Diagnosis Status post total right knee replacement- Primary documented in this encounter Additional Health Concerns Active Problems Noted Date Diagnosed Date Autogenerated Problem 01/20/2025 Assessment Noted Time A fall risk assessment has been complete d for the patient 03/01/2025 10:59 AM EST A Body Mass Index follow-up plan has been documented for the patient 03/01/2025 2:40 PM EST documented as of this encounter Care Teams Electronic Court Recorder Relationship Specialty Start Date End Date Elodia Manrique APRN [address] [place] [facility] [address] [place] [id number] PCP - General 01/10/25 documented as of this encounter
--- NOTE | 2025-03-07 13:33 | XR_ITS ---
FINAL REPORT CLINICAL HISTORY: right knee pain FINDINGS: RIGHT KNEE 3 views of the right knee were obtained. The patient is status post right knee arthroplasty. Hardware is intact. There is no acute fracture or dislocation. There is a lucency along the lateral aspect of the femoral hardware, loosening not excluded. There is no joint effusion. IMPRESSION: Questionable hardware loosening. Recommend comparison with prior postoperative films if available. Reviewed, Interpreted and Dictated by Emma Segal MD Transcribed by Che Kumari Authenticated and [facility]
--- OUTSIDE RECORDS SUMMARY | 2025-03-07 13:34 | XMS_ITS | Clinical Summary ---
Author Organization [facility] Address [address] [place] [address] Care Team Providers Care Public Health Name Role Phone Elodia Manrique LUZ MARINA Primary Care Provider [phone] Allergies No known active allergies Medications triamcinolone (Kenalog) 0.1 % lotion Apply 1 Application topically as needed for rash or irritation. 2 Active ibuprofen 200 MG tablet Take 1 tablet by mouth every 6 hours as needed for mild pain. Active levothyroxine (Synthroid, Levoxyl) 137 MCG tablet Take 1 tablet by mouth daily. 3 Active cholecalcifero l (Vitamin D3) 25 MCG (1000 UT) tablet Take 1 tablet by mouth daily. Active estradiol (Vagifem) 10 MCG tablet vaginal tablet Insert 1 tablet into the vagina every other day. 4 Active losartan (Cozaar) 50 MG tablet Take 1 tablet by mouth 2 times a day. 5 Active rosuvastatin (Crestor) 20 MG tablet Take 1 tablet by mouth nightly. Active Biotin-Vitamin C (HAIR SKIN NAILS GUMMIES PO) Take 1 Chewable tablet by mouth daily. Active oxyCODONE (Roxicodone) 5 MG immediate release tablet Take 1 tablet by mouth every 6 hours as needed for severe pain for up to 50 doses. 50 tablet 5 Active traMADol (Ultram) 50 MG tablet Take 1 tablet by mouth every 6 hours as needed for moderate pain. Take 1 or 2 tablets every 4-6 hours as needed for moderate pain 56 tablet 5 Active naloxone (Narcan) 4 mg/0.1 mL nasal spray 1. Give 1 spray in nostril for no/slow breathing or cannot wake after opioid use 2. Call 911 3. Repeat in other nostril if symptoms continue 1 each Active apixaban (Eliquis) 2.5 MG tablet Take 1 tablet by mouth 2 times a day. For 4 weeks post-op for blood clot prevention 56 tablet 5 Active acetaminophen (Tylenol Extra Strength) 500 MG tablet Take 1 tablet by mouth every 6 hours. 100 tablet 5 Active gabapentin (Neurontin) 100 MG capsule Take 1 capsule by mouth 3 times a day. If this medication makes you drowsy you may take it only at bedtime 30 capsule 5 Active HYDROcodone-ac etaminophen ([place]) 5-325 MG tablet Take 1 tablet by mouth every 6 hours as needed for severe pain. 90 tablet Active docusate sodium (Colace) 250 MG capsule Take 1 capsule by mouth 2 times a day. 60 capsule 5 025 gabapentin (Neurontin) 100 MG capsule Take 1 capsule by mouth 3 times a day. If this medication makes you drowsy you may take it only at bedtime 30 capsule 5 025 Discontinu ed(Reorder ) omeprazole (PriLOSEC) [address] capsule Take 1 capsule by mouth daily for 28 days. Do not crush or chew. 28 capsule 5 025 meloxicam (Mobic) 15 MG tablet Take 1 tablet by mouth daily. For 4 weeks post-op 30 tablet 5 025 Active Problems Problem Noted Date Diagnosed Date Primary osteoarthritis of right knee 01/19/2025 Primary osteoarthritis of one knee, right 2024 Encounters Date Type Department Care Team Description 03/01/2025 10:40 AM EST Office Visit Medical Office Building Surgery Spine & Joint [address] [facility], [address] [place] [address] Ben Carlos MD Status post total right knee replacement (Primary Dx) 03/01/2025 Travel 02/28/2025 Travel 02/25/2025 Telephone Medical Office Building Surgery Spine & Joint [address] [facility], [address] [place] [address] Ben Carlos MD HCN Status Update Call #1 02/10/2025 Telephone Medical Office Building Surgery Spine & Joint [address] [facility], [address] [place] [address] Ben Carlos MD HCN - Patient Message 02/10/2025 Orders Only [facility] Orthopaedic Surgery & Sports Medicine [address] [place] [address] Ben Burger MD 02/10/2025 Refill Medical Office [facility] Surgery Spine & Joint [address] [facility], [address] [place] [address] Suzie Norma S, SEMIAUTOMATIC STITCHER OPERATOR 02/01/2025 12:35 PM EDT - 02/01/2025 11:59 PM EDT Hospital Encounter Medical Office Building Radiology [address] [place] [address] Acute pain of right knee Discharge Disposition: Home or Self Care 02/01/2025 12:30 PM EDT Office Visit Medical Office Building Surgery Spine & Joint [address] [facility], [address] [place] [address] Ben Carlos MD Acute pain of right knee (Primary Dx) 02/01/2025 Travel 01/31/2025 Travel 01/31/2025 Telephone Medical Office [facility] Surgery Spine & Joint [address] [facility], [address] [place] [address] Ben Carlos MD HCN - Patient Message 01/19/2025 9:45 AM EDT - 01/19/2025 11:35 AM EDT Surgery [facility] Operating Room [address] [place] [address] Ben Carlos MD ARTHROPLASTY, KNEE, TOTAL [[id number] (CPT )] 01/19/2025 9:34 AM EDT Anesthesia Event [facility] Operating Room [address] [place] [address] Lee Coe DO 01/19/2025 6:30 AM EDT - 01/20/2025 1:55 PM EDT Hospital Encounter P[facility] S Inpatient [address] [place] [address] Ben Carlos MD Primary osteoarthritis of one knee, right (Primary Dx) Discharge Disposition: Home or Self Care 01/19/2025 Travel 01/18/2025 Travel 01/17/2025 Travel 01/17/2025 Telephone Medical Office Building Surgery Spine & Joint [address], [address] [place] [address] Ben Carlos MD 01/17/2025 Orders Only Medical Office Building Surgery Spine & Joint [address], [address] [place] [address] Ben Carlos MD Primary osteoarthritis of right knee (Primary Dx); Chronic pain of right knee 01/11/2025 2:20 PM EDT Office Visit Medical Office Building Surgery Spine & Joint [address], [address] [place] [address] Ben Carlos MD Primary osteoarthritis of right knee (Primary Dx) 01/11/2025 Travel 01/10/2025 Travel 12/14/2024 1:00 PM EDT Office Visit Medical Office Building Surgery Spine & Joint [address], [address] [place] [address] Ben Carlos MD Primary osteoarthritis of right knee (Primary Dx) 12/14/2024 Travel 12/13/2024 Travel from Last 3 Months Family History Medical History Relation Name Comments Cancer Father Zak Heart disease Father Zak Cancer Maternal Grandfather Wood Broken bones Mother Relation Name Status Comments Father Zak Maternal Grandfather Wood Mother Alive Social History Tobacco Use Types Packs/Day Years [...] PM EST Sexual Orientation Not on file Last Filed Vital Signs Vital Sign Reading [...] Mass Index 36.15 03/01/2025 10:59 AM EST Plan of Treatment Upcoming Encounters Date Type Department Care Team (Late st Contact Info) Description 06/07/2025 9:40 AM EST Office Visit Medical Office Building Surgery Spine & Joint [address], [address] [place] [address] Ben Carlos MD [address] [place] [address] Health Maintenance Due Date Last Done Comments [facility]-Bone Density Scan 1955 [facility]-Depression Screening 1955 [facility]-Hepatitis C Screening 1955 [facility]-Medicare Annual Wellness (AWV) 1955 [facility]-Infant/Child/Adol SDOH Screenings 1955 [facility]- SDOH Screenings 1971 [facility]-Adult SDOH Screenings 1971 CT Colonography 1998 Colonoscopy 1998 FIT-DNA 1998 FIT 1998 FOBT 1998 Sigmoidoscopy 1998 [facility]-Colorectal Cancer Screening 1998 [facility]-Breast Cancer Screening 2003 [facility]-Zoster Vaccines (2 of 3) 02/22/2016 12/28/2015 [id number]-70 Vaccine (4 - 2025-26 season) 2024 03/23/2021, 07/05/2020, 06/07/2020 [facility]-Diabetes: Hemoglobin A1C 01/11/2026 01/11/2025 [facility]-DTaP,Tdap,and Td Vaccines (2 - Td or Tdap) 06/23/2030 06/23/2020, 06/10/1996 [facility]-Pneumococcal Vaccine: 50+ Years Completed 04/15/2022, 05/25/2018 [facility]-RSV Vaccine: 60+ Years or Completed 04/24/2023 [facility]-Influenza Vaccine Completed 12/30/2024 , 01/06/2024, 02/06/2023, Additional history exists [facility]-Obesity Intervention Completed 025, 02/01/2025, 01/11/2025, Additional history exists HPV Vaccines Aged Out No longer eligi ble based on patient's age to complete this topic [facility]-HIB Vaccines Aged Out No longer e ligible based on patient's age to complete this topic [facility]-Hepatitis A Vaccines Aged Out No longer eligible based on patient's age to complete this topic [facility]-IPV Vaccines Aged Out No longer e ligible based on patient's age to complete this topic [facility]-Rotavirus Vaccines Aged Out No lo nger eligible based on patient's age to complete this topic Goals Goal Patient Goal Type Associated Problems Recent Progress Patient-Stated? Author Autogenerat ed Goal Care Plan Autogenerated Problem No ivRosario ivan Medical Devices Implanted Type Area Imposer Device Identifier Shelf Expiration Date Model / Serial / Lot Cement With Tobramycin - [id number] Implanted:Qty: 2 on 01/19/2025 by Ben Carlos MD at [facility] Cement Right: Knee [employer] [facility] [id number] 05/07/2026 [id number] / / [id number] Joint Joint Left: Knee Chg Tibial Gns Ii Cmt Size 3 R - [id number] Implanted:Qty: 1 on 01/19/2025 by Ben Carlos MD at [facility] Knee Right: Knee [id number] 06/10/2034 [id number] / / [id number] Chg Lgn Xlpe Dished Isrt Sz 3-4 11mm - [id number] Implanted:Qty: 1 on 01/19/2025 by Ben Carlos MD at [facility] Knee Right: Knee [employer]-[id number] 08/11/2034 [id number] / / [id number] Chg Femoral Legion Cr Oxin Sz4 - [id number] Implanted:Qty: 1 on 01/19/2025 by Ben Carlos MD at [facility] Knee Right: Knee [id number] 05/10/2034 [id number] / / [id number] Chg Patella Gns Ii Resurf 29mm - [id number] Implanted:Qty: 1 on 01/19/2025 by Ben Carlos MD at [facility] Patella Right: Knee [id number] 06/29/2034 [id number] / / [id number] Screw Screw Left: Wrist Procedures Procedure Name Priority Date/Time Associated Diagnosis Comments XR KNEE RIGHT 4+ VIEWS Routine 02/01/2025 12:44 PM EDT Acute pain of right knee XR KNEE RIGHT 1 OR 2 VIEWS Routine 01/19/2025 11:19 AM EDT NV TOTAL KNEE ARTHROPLASTY 01/19/2025 9:22 AM EDT Primary osteoarthritis of one knee, right Special Needs pineda and nephew TKA Right PB ANESTHESIA NON-TIMED PROCEDURE PLACEHOLDER Routine 01/19/2025 9:14 AM EDT CBC W/O DIFFERENTIAL Routine 01/11/2025 2:26 PM EDT Primary osteoarthritis of one knee, right Prediabetes BASIC METABOLIC PANEL, PLASMA Routine 01/11/2025 2:26 PM EDT Primary osteoarthritis of one knee, right ALBUMIN, PLASMA Routine 01/11/2025 2:26 PM EDT Primary osteoarthritis of one knee, right HEMOGLOBIN A1C Routine 01/11/2025 2:26 PM EDT Primary osteoarthritis of one knee, right Prediabetes NICOTINE AND COTININE METABOLITE, SERUM, QUANTITATIVE Routine 01/11/2025 2:26 PM EDT Primary osteoarthritis of one knee, right from Last 3 Months Results * XR Knee Right 4+ Views [...] Roger Guerrero MD on 02/01/2025 12:51 PM us Ben Carlos MD IMG XR PROCEDURES Final R esult * XR Knee Right 1 or 2 [...] MD on 01/19/2025 11:58 AM us Ben Carlos MD IMG XR PROCEDURES Final R esult * PB ANESTHESIA NON-TIMED PROCEDURE PLACEHOLDER (01/19/2025 9:14 AM EDT) Narrative Lee Coe, - 01/19/2025 9:14 AM EDT Lee Coe [...] Carlos MD ANESTHESIA ORDERABLES Fin al Result * Nicotine Cotinine Metabolite (01/11/2025 2:26 PM EDT) NICOTINE <5 <5 ng/mL 01/20/2025 9:1 8 AM EDT [facility] Cotinine <5 <5 ng/mL 01/20/2025 9:1 8 AM EDT [facility] Blood Venous blood specimen / Unknown Venipuncture / Unknown 01/11/2025 2:26 PM EDT 01/11/2025 2:27 PM EDT Narrative [facility] - 01/20/2025 9:18 AM EDT Testing performed by LC-MS/MS at the [facility] Special Chemistry/Toxicology Laboratory. This test was developed and its performance characteristics determined by [facility]. This assay has not been cleared by the FDA. The laboratory is regulated under CLIA as qualified to perform high-complexity testing. This test is used for clinical purposes. us Ben Carlos MD LAB BLOOD ORDERABLES Whitney harsha Result [facility] [address] [place] [address] * CBC W/O Differential (01/11/2025 2:26 PM EDT) [facility] WBC Count 5.50 3.70 - 10.30 10*3/uL LAB HEMATOLOGY METHOD 01/11/2025 5:46 PM EDT [facility] RBC Count 4.35 3.90 - 5.20 10*6/uL LAB HEMATOLOGY METHOD 01/11/2025 5:46 PM EDT [facility] HGB 13.2 11.2 - 15.7 g/dL LAB HEMATOLOGY METHOD 01/11/2025 5:46 PM EDT [facility] HCT 40.4 34.0 - 45.0 % LAB HEMATOLOGY METHOD 01/11/2025 5:46 PM EDT [facility] Platelet Count 247 155 - 369 10*3/uL LAB HEMATOLOGY METHOD 01/11/2025 5:46 PM EDT [facility] MCV 93 79 - 98 fL LAB HEMATOLOGY METHOD 01/11/2025 5:46 PM EDT [facility] MCH 30.3 26.0 - 32.0 pg LAB HEMATOLOGY METHOD 01/11/2025 5:46 PM EDT [facility] MCHC 32.7 30.7 - 35.5 g/dL LAB HEMATOLOGY METHOD 01/11/2025 5:46 PM EDT [facility] RDW 12.2 11.5 - 14.5 % LAB HEMATOLOGY METHOD 01/11/2025 5:46 PM EDT [facility] MPV 10.0 8.8 - 12.5 fL LAB HEMATOLOGY METHOD 01/11/2025 5:46 PM EDT [facility] nRBC 0.0 <=0.0 per 100 WBCs LAB HEMATOLOGY METHOD 01/11/2025 5:46 PM EDT [facility] Blood Venous blood specimen / Unknown Venipuncture / Unknown 01/11/2025 2:26 PM EDT 01/11/2025 2:27 PM EDT Ben Carlos MD LAB BLOOD ORDERABLES Whitney l Result [facility] [address] [place] [address] * Hemoglobin A1c (01/11/2025 2:26 PM EDT) Hemoglobin A1c 5.3 <5.7 % 01/11/2025 7:28 PM EDT [facility] Blood Venous blood specimen / Unknown Venipuncture / Unknown 01/11/2025 2:26 PM EDT 01/11/2025 2:27 PM EDT Narrative [facility] - 01/11/2025 7:28 PM EDT HA1C Interpretive Data: Diagnosis of Diabetes: Diabetic > or = 6.5% Pre-diabetic 5.7 to 6.4% Non-diabetic < or = 5.6% Glycemic Targets for Type I and Type II Diabetics: Non- Adults <7.0% Adults <6.0% Children and Adolescents <7.5% Source: [place] [employer]. Standards of medical care in diabetes,2017. Diabetes Care.2017:40 (suppl 1):S1-S135. Ben Carlos MD LAB BLOOD ORDERABLES Whitney l Result Performing Organization Address City/[facility]/ZIP Co de Phone Number [facility] [address] [place] [address] * Albumin, Plasma (01/11/2025 2:26 PM EDT) Albumin, Plasma 4.6 3.5 - 5.2 g/dL 01/11/2025 6:04 PM EDT [facility] Blood Venous blood specimen / Unknown Venipuncture / Unknown 01/11/2025 2:26 PM EDT 01/11/2025 2:27 PM EDT Ben Carlos MD LAB BLOOD ORDERABLES Whitney l Result Performing Organization Address City/[facility]/ZIP Co de Phone Number [facility] [address] [place] [address] * Basic metabolic panel (01/11/2025 2:26 PM EDT) [facility] Glucose, Plasma 91 74 - 99 mg/dL 01/11/2025 6:04 PM EDT [facility] BUN, Plasma 9 8 - 23 mg/dL 01/11/2025 6:04 PM EDT [facility] Creatinine, Plasma 1.00 0.60 - 1.10 mg/dL 01/11/2025 6:04 PM EDT [facility] BUN/Creatinine Ratio 9 01/11/2025 6:04 PM EDT [facility] Sodium, Plasma 144 136 - 145 mmol/L 01/11/2025 6:04 PM EDT [facility] Potassium, Plasma 4.1 3.6 - 4.9 mmol/L 01/11/2025 6:04 PM EDT [facility] Chloride, Plasma 105 97 - 107 mmol/L 01/11/2025 6:04 PM EDT [facility] CO2, Plasma 25 22 - 29 mmol/L 01/11/2025 6:04 PM EDT [facility] Anion Gap 14 6 - 16 mmol/L 01/11/2025 6:04 PM EDT [facility] Total Calcium, Plasma 9.2 8.9 - 10.2 mg/dL 01/11/2025 6:04 PM EDT [facility] eGFRcr 60.4 mL/min/1.7 3m*2 01/11/2025 6:04 PM EDT [facility] Comment:Reported eGFRcr in m L/min/1.73m2 is based the CKD-EPI 2020 equation that does not use a race coefficient. Blood Venous blood specimen / Unknown Venipuncture / Unknown 01/11/2025 2:26 PM EDT 01/11/2025 2:27 PM EDT Ben Carlos MD LAB BLOOD ORDERABLES Whitney mcleod Result [facility] [address] [place] [address] from Last 3 Months Additional Health Concerns Active Problems Noted Date Diagnosed Date Autogenerated Problem 01/20/2025 Insurance MEDICARE ANTHEM Advance Directives Documents on File Type Date Recorded Patient Stable Helper Expl anation Power of Clinical Liaison 01/22/2025 6:26 AM * Full Code (Latest Code Status on File) Date Activated Date Inactivated Comments 01/19/2025 11:30 AM 01/20/2025 3:55 PM Question Answer Comments I have reviewed the capacity from the link above and, if needed, have updated to appropriate status: Yes Care Teams Public Health Relationship Specialty Start Date End Date Elodia Manrique APRN [address] [facility] [address] [facility] [place] [address] PCP - General 01/10/25
--- OUTSIDE RECORDS SUMMARY | 2025-03-07 13:34 | XMS_ITS | Encounter Summary ---
Author Organization Healthcare Address [address] [place] [address] Care Team Providers Care Babbitt Spinner Name Role Phone Elodia Manrique SLATE WORKER Primary Care Provider [phone] Encounter Details Date Type Department Care Team (Latest Contact Info) Description 02/28/2025 Travel Social History Tobacco Use Types Packs/Day Years [...] on file documented as of this encounter Plan of Treatment Upcoming Encounters Date Type Department Care Team (Late st Contact Info) Description 06/07/2025 9:40 AM EST Office Visit Medical Office Building Surgery Spine & Joint [address], [address] [place] [address] Ben Carlos MD [address] [place] [address] documented as of this encounter Goals Goal Patient Goal Type Associated Problems Recent Progress Patient-Stated? Author Autogenerat ed Goal Care Plan Autogenerated Problem No Rosario Woodward documented as of this encounter Visit Diagnoses Not on filedocumented in this encounter Additional Health Concerns Active Problems Noted Date Diagnosed Date Autogenerated Problem 01/20/2025 Assessment Noted Time A fall risk assessment has been complete d for the patient 02/01/2025 12:20 PM EDT A Body Mass Index follow-up plan has been documented for the patient 02/01/2025 1:11 PM EDT documented as of this encounter Care Teams Babbitt Spinner Relationship Specialty Start Date End Date Elodia Manrique APRN [address] [place] [address] PCP - General 01/10/25 documented as of this encounter
--- OUTSIDE RECORDS SUMMARY | 2025-03-07 13:34 | XMS_ITS | Encounter Summary ---
Author Organization Healthcare Address [address] [place] [address] Care Team Providers Care Motor Transport Inspector Name Role Phone Elodia Manrique ENTRY LEVEL ELECTRICIAN Primary Care Provider [phone] Encounter Details Date Type Department Care Team (Latest Contact Info) Description 03/01/2025 Travel Social History Tobacco Use Types Packs/Day [...] Joint [address], [address] [place] [address] Ben Carlos MD [address] [place] [address] documented as of this encounter [...] documented as of this encounter Care Teams Motor Transport Inspector Relationship Specialty Start Date End Date Elodia Manrique APRN [address] [place] [address] PCP - General 01/10/25 documented as of this encounter
--- OUTSIDE RECORDS SUMMARY | 2025-03-07 13:35 | XMS_ITS | Encounter Summary ---
Author Organization [facility] Address [address] [place] [address] Care Team Providers Care Compliance Field Technician Name Role Phone Elodia Manrique DERMATOLOGY SPECIALIST Primary Care Provider [phone] Reason for Visit * Reason Onset Date Comments HCN - Patient Message 02/10/2025 Encounter Details Date Type Department Care Team ([facility] st Contact Info) Description 02/10/2025 Telephone Medical Office Building Surgery Spine & Joint [address] [facility], [address] [place] [address] Ben Carlos MD [address] [place] [address] HCN - Patient Message Social History Tobacco Use Types Packs/Day Years [...] on file documented as of this encounter Miscellaneous Notes * Telephone Encounter - Debbie Velasco RN - 02/10/2025 3:49 PM EST Attempted to call patient. Left VM relaying message and direct line for questions or concerns. Re-enforced to call for any new s/s or continued drainage. Advised patient continue PT but carefully. Clean dressing to manage drainage. Reminded no showers for 24 hours after drainage stops. * Telephone Encounter - Debbie Velasco RN - 02/10/2025 2:15 PM EST Images from the original note were not included. Middle portion of incision was seeping blood this morning. * Telephone Encounter - Debibe Velasco RN - 02/10/2025 2:04 PM EST Called patient. RTK 01/19/25 Patient had PT Friday and experienced stiffness afterwards. Patient has been pushing herself to getit loose for PT today. Patient has pain that runs down her leg when doing flexion. Patient states the pain is almost unbearable. Patient went to take a shower this morning and noticed warmth (not hot) of her knee and some bleeding from her incision. Denies fever, redness, swelling and current drainage. Denies calf pain, discoloration and warmth of calf. Patient is having pain behind the knee. Informed patient she needs to wait at least 24 hours after drainage to shower. Patient will take some pictures and send them via email. Patient wants to know if she should go to PT today or not. Please advise. * Telephone Encounter - Roopa Benítez - 02/10/2025 12:15 PM EST Clinical Concern/Question Reason for Call: O'nataliya pt. Pt went to therapy and pt says she has spent the last 2 days recovering. Pt says there was fresh blood on her bandage. Pt says her knee is warm to touch and swollen. Ptis asking if she needs to go to PT today. Please call to advise Best contact number: [phone] (home) Optimal time of day to reach caller: ANYTIME Additional comments/information from caller: None Note: Please do not reply to this message. Follow-up communication and further actions as a result of this message need to be communicated with the patient directly, if the patient is not active onMyChart. If the patient is active on MyChart, they will receive notification of the communication/outcome via MyChart. documented in this encounter Plan of Treatment Upcoming Encounters Date Type Department Care Team (Late st Contact Info) Description 06/07/2025 9:40 AM EST Office Visit Medical Office Building Surgery Spine & Joint [address], [address] [place] [address] Ben Carlos MD [address] [place] [address] documented as of this encounter Goals Goal Patient Goal Type Associated Problems Recent Progress Patient-Stated? Author Autogenerat ed Goal Care Plan Autogenerated Problem No Rosario Woodward [place] documented as of this encounter Visit Diagnoses [...] documented as of this encounter Care Teams Compliance Field Technician Relationship Specialty Start Date End Date Elodia Manrique, DERMATOLOGY SPECIALIST [address] [place] [address] PCP - General 01/10/25 documented as of this encounter
--- OUTSIDE RECORDS SUMMARY | 2025-03-07 13:35 | XMS_ITS | Encounter Summary ---
Author Organization Healthcare Address [address] [place] [address] Care Team Providers Care Night Coordinator Name Role Phone Elodia Manrique PLUG STITCHER Primary Care Provider Encounter Details Date Type Department Care Team (Latest Contact Info) Description 01/17/2025 Travel Social History Tobacco Use Types Packs/Day [...] Joint [address], [address] [place] [address] Ben Carlos MD [address] [place] [address] documented as of this encounter [...] documented as of this encounter Care Teams Night Coordinator Relationship Specialty Start Date End Date Elodia Manrique APRN [address] [place] [address] PCP - General 01/10/25 documented as of this encounter
--- OUTSIDE RECORDS SUMMARY | 2025-03-07 13:35 | XMS_ITS | Encounter Summary ---
Author Organization [facility] Address [address] [facility] [place] [address] Care Team Providers Care Horse Trekking Guide Name Role Phone Elodia Manrique LUZ MARINA Primary Care Provider [phone] Encounter Details Date Type Department Care Team (Latest Contact Info) Description 01/19/2025 Travel Social History Tobacco Use Types Packs/Day [...] of Assessment Author No Risk Indicated 01/19/2025 3:34 PM EDT Augustin Rivera RN * Question Answer Date of Assessment Author 1. Wish to be (Past 1 Month) No 01/19/2025 3:34 PM EDT Augustin Salazar RN 2. Non-Specific Active Suici anali Thoughts (Past 1 Month) No 01/19/2025 3:34 PM EDT Tyra Salazar RN 6. Suicidal Behavior (Lifetime) No 3:34 PM EDT Augustin Salazar RN documented as of this encounter Plan of Treatment Upcoming Encounters Date Type Department Care Team (Late st Contact Info) Description 06/07/2025 9:40 AM EST Office Visit Medical Office Building Surgery Spine & Joint [address], [address] [place] [address] Ben Carlos MD [address] [place] [address] documented as of this encounter [...] documented as of this encounter Care Teams Horse Trekking Guide Relationship Specialty Start Date End Date Elodia Manrique, HAM CURER [address] [facility] [address] [place] [address] PCP - General 01/10/25 documented as of this encounter
--- OUTSIDE RECORDS SUMMARY | 2025-03-07 13:35 | XMS_ITS | Encounter Summary ---
Author Organization Healthcare Address [address] [place] [address] Care Team Providers Care Press Leader Name Role Phone Elodia Manrique ACADEMIC GUIDANCE SPECIALIST Primary Care Provider [phone] Encounter Details Date Type Department Care Team (Latest Contact Info) Description 01/11/2025 Travel Social History Tobacco Use Types Packs/Day [...] Building Surgery Spine & Joint [address], [address] [place] [address] Ben Carlos MD [address] [place] [address] documented as of this encounter [...] documented as of this encounter Care Teams Press Leader Relationship Specialty Start Date End Date Elodia Manrique APRN [address] [place] [address] PCP - General 01/10/25 documented as of this encounter
--- OUTSIDE RECORDS SUMMARY | 2025-03-07 13:35 | XMS_ITS | Encounter Summary ---
Author Organization Healthcare Address [address] [place] [address] Care Team Providers Care Vice President Biostatistics Name Role Phone Elodia Manrique LUZ MARINA Primary Care Provider [phone] Encounter Details Date Type Department Care Team (Latest Contact Info) Description 01/31/2025 Travel Social History Tobacco Use Types Packs/Day [...] Joint [address], [address] [place] [address] Ben Carlos MD [address] [place] [address] documented as of this encounter [...] documented as of this encounter Care Teams Vice President Biostatistics Relationship Specialty Start Date End Date Elodia Manrique APRN [address] [place] [address] PCP - General 01/10/25 documented as of this encounter
--- OUTSIDE RECORDS SUMMARY | 2025-03-07 13:35 | XMS_ITS | Encounter Summary ---
Author Organization Healthcare Address [address] [place] [address] Care Team Providers Care Flash Oven Operator Name Role Phone Elodia Manrique LUZ MARINA Primary Care Provider [phone] Encounter Details Date Type Department Care Team (Latest Contact Info) Description 01/10/2025 Travel Social History Tobacco Use Types Packs/Day Years Used Date Smoking Tobacco: Never Smokeless Tobacco: Never Alcohol Use Standard Drinks/Week Comments Not Currently 0 (1 standard drink = 0.6 oz pure alcohol) Alcoholic Drinks/day: Rarely consumes alcohol Comments Unknown Sex and Gender Information Value Date Recorded [...] Spine & Joint [address] [facility] [address], [address] [place] [address] Ben Carlos MD [address] [facility] [address] [place] [address] documented as of this encounter Visit Diagnoses Not on filedocumented in this encounter Additional Health Concerns Assessment Noted Time A fall risk assessment has been complete d for the patient 12/14/2024 12:14 PM EDT A Body Mass Index follow-up plan has been documented for the patient 12/14/2024 1:00 PM EDT documented as of this encounter Care Teams Flash Oven Operator Relationship Specialty Start Date End Date Elodia Manrique, SOLAR SALES ESTIMATOR [address] [place] [address] PCP - General 01/10/25 documented as of this encounter
--- OUTSIDE RECORDS SUMMARY | 2025-03-07 13:35 | XMS_ITS | Encounter Summary ---
Author Organization Healthcare Address [address] [place] [address] Care Team Providers Care Order Builder Loader Name Role Phone Elodia Manrique LUZ MARINA Primary Care Provider [phone] Encounter Details Date Type Department Care Team (Latest Contact Info) Description 02/01/2025 Travel Social History Tobacco Use Types Packs/Day [...] Joint [address], [address] [place] [address] Ben Carlos MD [address] [place] [address] documented as of this encounter [...] documented as of this encounter Care Teams Order Builder Loader Relationship Specialty Start Date End Date Elodia Manrique APRN [address] [place] [address] PCP - General 01/10/25 documented as of this encounter
--- OUTSIDE RECORDS SUMMARY | 2025-03-07 13:35 | XMS_ITS | Encounter Summary ---
Author Organization Healthcare Address [address] [place] [address] Care Team Providers Care Keyboard Teacher Name Role Phone Elodia Manrique LUZ MARINA Primary Care Provider [phone] Encounter Details Date Type Department Care Team (Late st Contact Info) Description 02/10/2025 Orders Only [facility] Orthopaedic Surgery & Sports Medicine [address] [place] [address] Ben Burger MD [address] [id number] Social History Tobacco Use Types Packs/Day Years [...] Joint [address], [address] [place] [address] Ben Carlos MD [address] [place] [address] documented as of this encounter [...] documented as of this encounter Care Teams Keyboard Teacher Relationship Specialty Start Date End Date Elodia Manrique APRN [address] [place] [address] PCP - General 01/10/25 documented as of this encounter
--- OUTSIDE RECORDS SUMMARY | 2025-03-07 13:35 | XMS_ITS | Encounter Summary ---
Author Organization [facility] Address [address] [place] [address] Care Team Providers Care Director Of Philanthropy Name Role Phone Elodia Manrique LUZ MARINA Primary Care Provider [phone] Reason for Referral * Consultation (Routine) - Authorized Specialty Diagnoses / Procedures Referred By Contac t Referred To Contact Physical Therapy Diagnoses Primary osteoarthritis of right knee Chronic pain of right knee Ben Carlos MD [address] [facility] [address] [place] [address] Phone: tel: fax: Referral ID Status Reason Start Date Expiration Date Visits Requested Visits Authorized [id number] Authorized Consult and Treat 01/17/2025 07/19/2026 10 10 Scheduling Instructions THIS REFERRAL IS FOR SCHEDULING PURPOSES ONLY. PATIENT WILL BEING POST-OP REFERRAL TO FIRST APPOINTMENT. Encounter Details Date Type Department Care Team ([facility] st Contact Info) Description 01/17/2025 Orders Only Medical Office Building Surgery Spine & Joint [address], [address] [place] [address] Ben Carlos MD [address] [facility] [address] [place] [address] Primary osteoarthritis of right knee (Primary Dx); Chronic pain of right knee Social History Tobacco Use Types Packs/Day Years [...] Joint [address], [address] [place] [address] Ben Carlos MD [address] [place] [address] Scheduled Referrals Name Type Priority Associated Diagnoses Orde r Schedule Ambulatory referral to Physical Therapy Outpatient Referral Routine Primary osteoarthritis of right knee Chronic pain of right knee 1 Occurrences starting 01/17/2025 until 07/21/2026 documented as of this encounter Goals Goal Patient Goal Type Associated Problems Recent Progress Patient-Stated? Author Autogenerat ed Goal Care Plan Autogenerated Problem No Rosario Woodward documented as of this encounter Visit Diagnoses Diagnosis Primary osteoarthritis of right knee- Primary Chronic pain of right knee documented in this encounter Additional Health Concerns Active Problems Noted Date Diagnosed Date Autogenerated Problem 01/20/2025 Assessment Noted Time A fall risk assessment has been complete d for the patient 01/11/2025 1:47 PM EDT A Body Mass Index follow-up plan has been documented for the patient 01/11/2025 2:30 PM EDT documented as of this encounter Care Teams Director Of Philanthropy Relationship Specialty Start Date End Date Elodia Manrique APRN [address] [facility] [address] [place] [address] PCP - General 01/10/25 documented as of this encounter
--- OUTSIDE RECORDS SUMMARY | 2025-03-07 13:35 | XMS_ITS | Encounter Summary ---
Author Organization [facility] Address [address] [place] [address] Care Team Providers Care General I Farmworker Name Role Phone Elodia Manrique HAIR CUTTER Primary Care Provider [phone] Reason for Visit * Reason Onset Date Comments HCN - Patient Message 01/31/2025 Encounter Details Date Type Department Care Team ([facility] st Contact Info) Description 01/31/2025 Telephone Medical Office Building Surgery Spine & Joint [address] [facility], [address] [place] [address] Ben Carlos MD [address] [place] [address] HCN - Patient Message Social [...] encounter Miscellaneous Notes * Telephone Encounter - Roopa Benítez - 01/31/2025 8:56 AM EDT Clinical Concern/Question Reason for Call: Mariangel pt. Pt had her first PT appt on of last week. Pt is having painsince then and is unable to sleep. She has a PT appt tomorrow and does not think she can go due to pain. Please call to advise Best contact number: [phone] (mobile) Optimal time of day to reach caller: ANYTIME Additional comments/information from caller: None Note: Please do not reply to this message. Follow-up communication and further actions as a result of this message need to be communicated with the patient directly, if the patient is not active onMyChart. If the patient is active on MyChart, they will receive notification of the communication/outcome via [employer]. documented in this encounter Plan of Treatment Upcoming Encounters Date Type Department Care Team ([facility] st Contact Info) Description 06/07/2025 9:40 AM EST Office Visit Medical Office Building Surgery Spine & Joint [address] [facility] [place] [address] Ben Carlos MD [address] [place] [address] documented as of this encounter [...] documented as of this encounter Care Teams General I Farmworker Relationship Specialty Start Date End Date Elodia Manrique APRN [address] [facility] [address] [place] [address] PCP - General 01/10/25 documented as of this encounter
--- OUTSIDE RECORDS SUMMARY | 2025-03-07 13:35 | XMS_ITS | Encounter Summary ---
Author Organization [facility] Address [address] [place] [address] Care Team Providers Care Mobile Qa Tester Name Role Phone Elodia Manrique LUZ MARINA Primary Care Provider [phone] Encounter Details Date Type Department Care Team (Late Contact Info) Description 01/17/2025 Telephone Medical Office Building Surgery Spine & Joint [address] [facility], [address] [place] [address] Ben Carlos MD [address] [place] [address] Social History Tobacco Use Types Packs/Day Years [...] encounter Miscellaneous Notes * Telephone Encounter - Mary Queevdo RN - 01/17/2025 11:35 AM EDT OP PT Referral faxed to [facility] OP PT for scheduling purposes. Patient and facility aware patient will bring post-op referral to first appointment. documented in this encounter Plan of Treatment Upcoming Encounters Date Type Department Care Team (Late st Contact Info) Description 06/07/2025 9:40 AM EST Office Visit Medical Office Building Surgery Spine & Joint [address] [place] [address] Ben Carlos MD [address] [place] [address] documented as of this encounter [...] documented as of this encounter Care Teams Mobile Qa Tester Relationship Specialty Start Date End Date Elodia Manrique, HEAD AUTOMATIC SAWYER [address] [place] [id number] PCP - General 01/10/25 documented as of this encounter
--- OUTSIDE RECORDS SUMMARY | 2025-03-07 13:35 | XMS_ITS | Encounter Summary ---
Author Organization [facility] Address [address] [place] [address] Care Team Providers Care Salon Coordinator Name Role Phone Elodia Manrique BOILER CLEANER Primary Care Provider [phone] Reason for Visit * Reason Onset Date Comments Med Refill 02/10/2025 Encounter Details Date Type Department Care Team (Late st Contact Info) Description 02/10/2025 Refill Medical Office Building Surgery Spine & Joint [address], [address] [place] [address] Norma Larsen, BOILER CLEANER [address] [place] [address] Social History Tobacco Use Types [...] Joint [address], [address] [place] [address] Ben Carlos MD [address] [place] [address] documented as of this encounter [...] documented as of this encounter Care Teams Salon Coordinator Relationship Specialty Start Date End Date Elodia Manrique, LUZ MARINA [address] [place] [address] PCP - General 01/10/25 documented as of this encounter
--- OUTSIDE RECORDS SUMMARY | 2025-03-07 13:35 | XMS_ITS | Encounter Summary ---
Author Organization [facility] Address [address] [place] [address] Care Team Providers Care Bakery Clerk Name Role Phone Elodia Manrique BIOLOGICAL TECHNICIAN Primary Care Provider [phone] Reason for Visit * Reason Onset Date Comments HCN Status Update Call #1 02/25/2025 Encounter Details Date Type Department Care Team (Late st Contact Info) Description 02/25/2025 Telephone Medical Office Building Surgery Spine & Joint [address] [facility] [address], [address] [place] [address] Ben Carlos MD [address] [place] [address] HCN Status Update Call #1 Social History Tobacco Use Types Packs/Day Years [...] Miscellaneous Notes * Telephone Encounter - Mary Quevedo RN - 02/28/2025 10:16 AM EST Patient stated no improvement. Continues to c/o redness, edema, and pain. Stated it feels as if pain has increased. Denies fevers. Instructed she can come to [facility]. She would like to wait to Dr. Carlos tomorrow. Appt scheduled, patient aware. * Telephone Encounter - Ruthann Yee - 02/28/2025 8:29 AM EST Status Update Call #1 1st call regarding the status of the initial request. Best contact number: [phone] (home) Optimal time of day to reach caller: ANYTIME Additional comments/information from caller: patient is calling back stating she is not doing any better and would like to speak to Mary about getting in to see Dr Carlos. Note: Please do not reply to this message. Follow-up communication and further actions as a result of this message need to be communicated with the patient directly, if the patient is not active onMyChart. If the patient is active on MyChart, they will receive notification of the communication/outcome via [employer]. * Telephone Encounter - Debbie Velasco RN - 02/25/2025 4:54 PM EST Called patient and relayed message. States understanding and denies further needs. * Telephone Encounter - Debbie Velasco RN - 02/25/2025 4:30 PM EST Images from the original note were not included. * Telephone Encounter - Paulette Tran - 02/25/2025 8:32 AM EST Clinical Concern/Question Reason for Call: patient is requesting a call back regarding her increased knee pain Best contact number: [phone] (home) Optimal time of day to reach [...] Joint [address], [address] [place] [address] Ben Carlos MD [address] [place] [address] documented as of this encounter [...] documented as of this encounter Care Teams Bakery Clerk Relationship Specialty Start Date End Date Elodia Manrique, BIOLOGICAL TECHNICIAN [address] [place] [address] PCP - General 01/10/25 documented as of this encounter
--- OUTSIDE RECORDS SUMMARY | 2025-03-07 13:35 | XMS_ITS | Encounter Summary ---
Author Organization Healthcare Address [address] [place] [address] Care Team Providers Care Graphics Manager Name Role Phone Elodia Manrique LUZ MARINA Primary Care Provider [phone] Encounter Details Date Type Department Care Team (Latest Contact Info) Description 01/18/2025 Travel Social History Tobacco Use Types Packs/Day [...] Joint [address], [address] [place] [address] Ben Carlos MD [address] [place] [address] documented as of this encounter [...] documented as of this encounter Care Teams Graphics Manager Relationship Specialty Start Date End Date Elodia Manrique APRN [address] [place] [address] PCP - General 01/10/25 documented as of this encounter
== END 2025-03-07 23:59 | disposition home or self-care (01) ==
LOC: RAD 13:31
PROVIDERS: PCP Internal Medicine Adolescent Medicine; Visit Provider Orthopaedic Surgery
DX: M25.561 Pain in right knee (principal); R93.6 Abnormal findings on diagnostic imaging of limbs
CPT/HCPCS: 73562

== ENCOUNTER 2025-04-05 15:00 | Outpatient (RCR) | payer MEDICARE, BC, SELFPAY | END 2025-04-05 23:59 | disposition home or self-care (01) | LOC: PT 15:00 | PROVIDERS: PCP Internal Medicine Adolescent Medicine; Visit Provider Orthopaedic Surgery | DX: M17.11 Unilateral primary osteoarthritis, right knee (principal) | CPT/HCPCS: 97014; 97110; G0283 ==